=== PATIENT | male | born 1965 | race Caucasian/White ===

== ENCOUNTER → 2020-09-22 09:39 | Outpatient (BNVA) | payer BC, SELFPAY | PROVIDERS: Family Provider Family Medicine; PCP Family Medicine; Visit Provider Urology | DX: N52.1 Erectile dysfunction due to diseases classified elsewhere (principal); E11.9 Type 2 diabetes mellitus without complications; I10 Essential (primary) hypertension; Z12.5 Encounter for screening for malignant neoplasm of prostate | CPT/HCPCS: G0103 ==

== ENCOUNTER → 2021-09-22 08:49 | Outpatient (BNVA) | payer BC, SELFPAY | PROVIDERS: PCP Family Medicine; Visit Provider Urology | DX: N52.1 Erectile dysfunction due to diseases classified elsewhere (principal) | CPT/HCPCS: 81003 ==

== ENCOUNTER 2021-11-28 13:41 | Emergency (ER) | payer BC, OTHER, SELFPAY ==
[2021-11-28 13:48] VITALS: BP 150/92; PULSE 83; RESP 18; TEMP 37; O2SAT 99; BMI 32.5
--- NOTE | 2021-11-28 14:03 | CT_ITS ---
WS: [id number] CT HEAD NONCONTRAST HISTORY: Symptoms of Acute Stroke TECHNIQUE: Contiguous axial imaging performed through the brain in 2.5 mm imaging. Bone and soft tiss ue windows. Sagittal and coronal reformats reviewed. All CT scans at [facility] use at least one of these dose optimization techniques: automated exposure control; mA and/or kV adjustment per pa tient size (includes targeted exams where dose is matched to clinical indication); or iterative recon struction. DLP: 1203.3 mGy.cm COMPARISON: 10/15/2007, MRI 01/23/2019 No acute intracranial hemorrhage, midline shift or mass effect. Mild atrophy. Numerous periventricular areas of decreased attenuation are noted throughout the white matter. Some of these are closely associated with the corpus callosum. These are new since the prior CT of 2007. MRI from 2019 demonstrated periventricular white matter signal abnormalities raising the suspicion for possible demyelinating disease. There is a prior lacunar infarct in the RIGHT sindi and the RIGHT basal ganglia. Ventricles: No hydrocephalus. Paranasal sinuses: Small mucous retention cyst or polyp in the RIGHT maxillary sinus. Mastoid air cells: Well pneumatized. Calvarium and scalp: Skull is intact with no soft tissue edema or swelling. Scattered calcifications within the intracranial carotid arteries. CT/CT head wo con* [id number] IMPRESSION: 1. No acute hemorrhage, edema or midline shift. 2. Since 2007 progression of periventricular white matter lesions closely asso ciated with the ventricles. Demyelinating disease, vasculitis and progressive s mall vessel ischemic disease should be considered. There was a prior MRI from which suggested the possibility of demyelination also. 3. Small chronic lacunar infarcts in the RIGHT sindi and RIGHT basal ganglia.
--- NOTE | 2021-11-28 14:03 | ECG_ITS ---
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 Measurements Intervals [place] Rate: 90 P: 59 NC: 202 QRS: -43 QRSD: 130 T: 72 QT: 357 QTc: 438 Interpretive Statements SINUS RHYTHM LEFT AXIS DEVIATION [QRS AXIS < -30] MODERATE INTRAVENTRICULAR CONDUCTION DELAY [110+ ms QRS DURATION] Compared to ECG 01/22/2017 15:17:53 Intraventricular conduction delay now present Ventricular premature complex(es) no longer present Electronically Signed On 11-28-2021 16:09:52 COPS by Mayra Vela M.D. [id number]
--- NOTE | 2021-11-28 14:14 | ED_ITS ---
HPI - Weakness General: Chief complaint: Weakness Stated complaint: stroke like symptoms sent by PCP Time Seen by Provider: 11/28/21 14:00 Source: patient Mode of arrival: ambulatory Limitations: no limitations History of Present Illness: 56-year-old male presents emergency room with complaints difficulty with word finding. He was seen by his primary care doctor today reported that his was in his normal state of good health until this morning when he woke up he had difficulty with word finding and some very mild subtle dysarthria. Not had any vomiting or diarrhea is not had any chest pain he denies difficulty with breathing no difficulty with swallowing or vision. He has known history of diabetes mellitus and a previous right [id number]-iwg-[id number] amputation. His last known well time was approximately 16 to 17 hours prior to arrival here. Onset (ago): hour(s) (18) Duration: constant Location: other Severity: mild Relieving factors: none Exacerbating factors: none Associated symptoms: Denies chest pain, chills, confusion, melena, decreased appetite, diaphoresis, dysuria, easy bruising, fever(s), headache(s), myalgias, nausea, rash, short of breath, syncope or vomiting Review of Systems Const: Denies: fever(s), chills or diaphoresis Card: Denies: chest pain or syncope GI: Denies: nausea, vomiting or melena : Denies: dysuria Neuro: Denies: headache(s) or confusion Eloy/Lymph: Denies: easy bruising PFSH ED PFSH: Medical History Diabetes Erectile dysfunction HTN (hypertension) Surgical History Status post above-knee amputation of right lower extremity Family History Father , AT AGE 82 Heart disease Kidney disease Other CAD (coronary artery disease) Social History Smoking and tobacco status: never smoked Alcohol intake: current Alcohol intake frequency: few times a month Marital status: Legally Current occupational status: employed History of recent travel: No Physical Exam Const: COMMON NORMALS: no acute distress GENERAL APPEARANCE: cooperative and comfortable ORIENTATION/CONSCIOUSNESS: Yes awake, Yes oriented to person, Yes oriented to place and Yes oriented to time HENMT: COMMON NORMALS: normocephalic, atraumatic, hearing grossly normal bila terally, external ears normal, EAC's normal, TM's normal bilaterally, Normal nasal mucous membranes and turbinates present, moist oral mucous membranes and oropharynx normal HEAD & SCALP: normocephalic and atraumatic NOSE: Normal nasal mucous membranes and turbinates present EXTERNAL EAR: Yes external ears normal EXTERNAL AUDITORY CANAL: EAC's normal TYMPANIC MEMBRANE: TM's normal bilaterally Eye: COMMON NORMALS: Equal, round and reactive pupils present, EOMs intact bilaterally, conjunctivae normal and no scleral icterus CONJUNCTIVA: Yes conjunctivae normal PUPIL: Yes Equal, round and reactive pupils present Neck/C-Spine: COMMON NORMALS: full ROM, no lymphadenopathy, supple and no JVD Lymph: LYMPHATIC: no lymphadenopathy noted and no lymphedema noted Resp: COMMON NORMALS: normal respiratory effort, No retractions, No use of accessory muscles and clear to auscultation bilaterally AUSCULTATION: clear to auscultation bilaterally Cardio: COMMON NORMALS: no JVD, regular rate, regular rhythm and No murmurs present (Cardio) RATE: regular rate RHYTHM: regular rhythm GI: COMMON NORMALS: Soft to palpation and No hepatosplenomegaly present AUSCULTATION: Yes normoactive bowel sounds PALPATION: Yes Soft to palpation, No Tenderness to palpation present (GI), No Guarding due to palpation present (GI) and Yes No hepatosplenomegaly present Extremity: COMMON NORMALS: normal to inspection, capillary refill normal, no clubbing, cyanosis or edema, no calf tenderness and no pedal edema Neuro: SENSORIUM/ORIENTATION: Yes oriented to person, Yes oriented to place and Yes oriented to time Skin: COMMON NORMALS: no rashes or lesions noted GENERAL SKIN EXAM: no ra shes or lesions noted Course Vital Signs: Vital signs: Vital Signs Temperature 98.6 F 11/28/21 13:48 Pulse Rate 80 11/28/21 17:35 Respiratory Rate 18 11/28/21 17:35 Blood Pressure 150/80 11/28/21 17:35 Pulse Oximetry 95 11/28/21 17:35 MDM - Weakness Medical Decision Making Patient continues to have mild dysarthria and dysphagia. His total stroke score would be a 2 and this has been persistent throughout his time here. He is outside the time window for any kind of intervention the stroke score is too low to consider embolectomy. He is unable to take statin because of a previous reaction at talk to him about his previous symptoms he cannot recall which one he took previously. We can switch him from aspirin to clopidogrel which we did write him a prescription for. His blood pressure is relatively well controlled I would not make changes at this point may need better control at some point in the future. Recommended to him considering allowing us to place him on observation or we can get MRI echocardiogram carotid duplex and monitor his rhythm to look for potential causes to prevent recurrence. He declines he prefers to go home at this point. He still does have the mild symptoms he presented with and Dr. Myers had prescribed. We will discharge him home and set up echocardiogram carotid duplex MRI of the head with contrast and a 48-hour Holter monitor as an outpatient. Encouraged him to follow-up with his primary care doctor to reevaluate blood pressure and review lipid control. Medical Records I reviewed the patient's medical records. Lab Data I reviewed the patient's lab results. : 11/28/21 14:19 11/28/21 14:[address] 11/28/21 14:03 IMPRESSION: 1. No acute hemorrhage, edema or midline shift. 2. Since 2007 progression of periventricular white matter lesions closely associated with the ventricles. Demyelinating disease, vasculitis and progressive small vessel ischemic disease should be considered. There was a prior MRI from 2019 which suggested the possibility of demyelination also. 3. Small chronic lacunar infarcts in the RIGHT sindi and RIGHT basal ganglia. Laboratory Results WBC 6.6 10^3/uL (4.0-10.0) 11/28/21 14:19 RBC 4.64 10^6/uL (4.1-5.3) 11/28/21 14:19 Hgb 15.0 g/dL (11.7-16.6) 11/28/21 14:19 Hct 41.8 % (42.0-52.0) L 11/28/21 14:19 MCV 90.1 fl (80-94) 11/28/21 14:19 MCH 32.3 pg (28.0-34.0) 11/28/21 14:19 MCHC 35.9 g/dL (30.0-36.0) 11/28/21 14:19 RDW 11.7 % (12.1-15.1) L 11/28/21 14:19 Plt Count 307 10^3/cmm (130-400) 11/28/21 14:19 MPV 9.2 fL (7.4-10.4) 11/28/21 14:19 Neut % (Auto) 54.5 % 11/28/21 14:19 Lymph % (Auto) 31.9 % 11/28/21 14:19 Traill % (Auto) 9.1 % 11/28/21 14:19 Eos % (Auto) 3.0 % 11/28/21 14:19 Baso % (Auto) 0.9 % 11/28/21 14:19 Neut # (Auto) 3.60 10^3/uL (1.8-7.7) 11/28/21 14:19 Lymph # (Auto) 2.1 10^3/uL (0.8-4.8) 11/28/21 14:19 Traill # (Auto) 0.6 10^3/uL (0.2-0.9) 11/28/21 14:19 Eos # (Auto) 0.2 10^3/uL (0.0-0.8) 11/28/21 14:19 Baso # (Auto) 0.1 10^3/uL (0.0-0.1) 11/28/21 14:19 Nucleated RBC % (auto) 0 % 11/28/21 14:19 Nucleated RBCs # 0.0 /100WBC 11/28/21 14:19 PT 13.00 SECONDS (12.1-14.9) 11/28/21 14:19 INR 0.95 (0.8-1.2) 11/28/21 14:19 APTT 26.0 SECONDS (23.9-36.7) 11/28/21 14:19 Sodium 136 mmol/L (136-145) 11/28/21 14:42 Potassium 4.1 mmol/L (3.5-5.1) 11/28/21 14:42 Chloride 98 mmol/L (98-107) 11/28/21 14:42 Carbon Dioxide 26 mmol/L (22-29) 11/28/21 14:42 Anion Gap 16.1 (5-19) 11/28/21 14:42 BUN 18 mg/dL (6-20) 11/28/21 14:42 Creatinine 0.8 mg/dL (0.7-1.2) 11/28/21 14:42 GFR Calculation 100.7 mL/min (90-130) 11/28/21 14:42 Glucose 129 mg/dL (65-115) H 11/28/21 14:42 POC Glucose 142 mg/dL (70-110) H 11/28/21 14:17 Calculated Osmolality 286 mOsm/kg (285-295) 11/28/21 14:42 Calcium 8.8 mg/dL (8.5-10.5) 11/28/21 14:42 Total Bilirubin 0.4 mg/dL (0.15-1.2) 11/28/21 14:42 AST 18 U/L (0-40) 11/28/21 14:42 ALT 37 U/L (0-41) 11/28/21 14:42 Alkaline Phosphatase 54 IU/L (40-130) 11/28/21 14:42 Total Protein 7.1 g/dL (6.6-8.7) 11/28/21 14:42 Albumin 4.4 g/dL (3.5-5.2) 11/28/21 14:42 Globulin 2.7 g/dL (1.3-4.6) 11/28/21 14:42 Discharge Plan Discharge Patient Disposition: Home Clinical Impression: Acute CVA (cerebrovascular accident) Condition: Stable Prescriptions: New clopidogrel 75 mg tablet 75 mg PO DAILY Qty: 30 0RF Discontinued aspirin [Aspir-81] 81 mg Tablet,Delayed Release (Dr/Ec) 81 mg PO DAILY 0RF No Action amlodipine 10 mg tablet 10 mg PO DAILY 0RF lisinopril 5 mg tablet 5 mg PO DAILY 0RF escitalopram oxalate 10 mg tablet 10 mg PO DAILY 0RF tadalafil [Cialis] 20 mg tablet 20 mg PO DAILY PRN (Reason: sexual activity) Qty: 20 12RF Rx Instructions: Take approx. 30min before sexual activity; no more than 1 dose per 24hrs; NO NITROGLYCERIN metformin 500 mg Tablet 500 mg PO BID 0RF irbesartan-hydrochlorothiazide 150-12.5 mg tablet 2 tab PO DAILY 0RF glipizide 10 mg Tablet 10 mg PO DAILY 0RF hydrochlorothiazide 12.5 mg capsule 12.5 mg PO DAILY 0RF Ozempic 0.25 mg or 0.5 mg(2 mg/1.5 mL) pen injector 2 mg SUBCUT Q7D 0RF Discharge Orders: Discharge ED (Routine); Ordered 11/28/21 Ordered By: Hammad Corrales Referrals: Timur Myers MD [Primary Care Provider] - Discharge Diet: Usual diet Discharge Activity: Increase activity as tolerated Patient Instructions: Opioid Safety Activity Restrictions/Additional Instructions: Stop aspirin instead start clopidogrel. internet marketing manager will make arrangements for further testing including a carotid duplex, echocardiogram, 48-hour Holter monitor, and MRI of the head. You have any worsening or change of symptoms return immediately. Coding Level of Care Code ED Retail Merchandising Coordinator for Ayse Fernandez Exam Comprehensive NIH stroke score NIHSS Level Of Consciousness - 1a: 0 Level Of Consciousness Questions - 1b: Both Correct Level Of Consciousness Commands - 1c: Both Correct Best Gaze - 2: Normal Visual Clements - 3: No Visual Loss Facial Palsy - 4: Normal Motor Arm Right - 5: No Drift Motor Arm Left - 5: No Drift Motor Leg Right - 6: No Drift Motor Leg Left - 6: No Drift Limb Ataxia - 7: Absent Sensory - 8: Normal Best Language - 9: Mild/Moderate Aphasia Dysarthia - 10: Mild/Moderate Dysarthia Extinction And Inattention - 11: 0 Score Total Score: 2
[2021-11-28 14:25] LABS: Basophils # 0.1 10^3/uL (0.0-0.1); Basophils % 0.9 %; Eosinophils # 0.2 10^3/uL (0.0-0.8); Hematocrit 41.8 % (42.0-52.0); Lymphocytes # 2.1 10^3/uL (0.8-4.8); Lymphocytes % 31.9 %; Mean Corpuscular HGB Conc 35.9 g/dL (30.0-36.0); Mean Corpuscular Hemoglobin 32.3 pg (28.0-34.0); Mean Corpuscular Volume 90.1 fl (80-94); Mean Platelet Volume 9.2 fL (7.4-10.4); Monocytes # 0.6 10^3/uL (0.2-0.9); Monocytes % 9.1 %; Neutrophils % 54.5 %; Nucleated Red Blood Cells % 0 %; Platelet Count 307 10^3/cmm (130-400); Red Blood Count 4.64 10^6/uL (4.1-5.3); Red Cell Distribution Width 11.7 % (12.1-15.1); White Blood Count 6.6 10^3/uL (4.0-10.0)
[2021-11-28 14:33] LABS: Glucose Point of Care 142 mg/dL (70-110)
[2021-11-28 14:41] LABS: INR 0.95 (0.8-1.2)
[2021-11-28 15:08] LABS: Alanine Aminotransferase 37 U/L (0-41); Albumin Level 4.4 g/dL (3.5-5.2); Alkaline Phosphatase 54 IU/L (40-130); Aspartate Amino Transferase 18 U/L (0-40); Blood Urea Nitrogen 18 mg/dL (6-20); Calcium 8.8 mg/dL (8.5-10.5); Carbon Dioxide 26 mmol/L (22-29); Chloride 98 mmol/L (98-107); Globulin 2.7 g/dL (1.3-4.6); Glomerular Filtration Rate 100.7 mL/min (90-130); Glucose 129 mg/dL (65-115); Osmolality Calculated 286 mOsm/kg (285-295); Sodium 136 mmol/L (136-145); Total Bilirubin 0.4 mg/dL (0.15-1.2); Total Protein 7.1 g/dL (6.6-8.7)
[2021-11-28 15:09] LABS: Anion Gap 16.1 (5-19)
[2021-11-28 15:10] LABS: Potassium 4.1 mmol/L (3.5-5.1)
--- NOTE | 2021-11-28 16:15 | PC.NURSE ---
Pt ambulatory to restroom to provide UA sample, pt unsucessful with sample. Will try again.
[2021-11-28 17:35] VITALS: BP 150/80; PULSE 80; RESP 18; O2SAT 95
--- NOTE | 2021-12-08 06:42 | DCPLANNER ---
Addendum entered by Noelle Quintero 01/26/22 20:56: Patient had an echo scheduled - patient did not attend the appointment Patient had an carotid ultrasound - patient did attend the appointment Patient had a 48 hour halter monitor scheduled at [facility] - patient did attend appointment. Patient has an MRI scheduled for January 26, 2022 - patient did attend appointment. Addendum entered by Noelle Quintero 12/19/21 08:26: Patient has an out patient echo scheduled for Tuesday, January 04, 2022 at 9:30. Patient has an outpatient carotid duplex scheduled for Tuesday, January 04, 2022 at 12:45. Centralized scheduling will call patient with appointment information. Patient has an appointment scheduled for a 48 hour halter monitor at [facility] for Monday, December 20, 2021 at 12:45. [facility] will call patient with appointment information. Original Note: manager packaging had message to schedule some out patient tests for patient. manager packaging faxed signed orders for an MRI, echocardiogram, and carotid to centralized scheduling, who will call patient with appointment information. manager packaging also faxed a signed order for a 48 hour halter monitor to [facility], who will call patient with appointment information.
== END 2021-11-28 17:36 | disposition home or self-care (01) ==
PROVIDERS: Emergency Provider Family Medicine; PCP Family Medicine
DX: I63.9 Cerebral infarction, unspecified (principal); Z79.84 Long term (current) use of oral hypoglycemic drugs; E11.9 Type 2 diabetes mellitus without complications; I10 Essential (primary) hypertension; Z89.611 Acquired absence of right leg above knee
CPT/HCPCS: 36416; 70450; 80053; 82962; 85025; 85610; 85730; 93005; 99283

== ENCOUNTER 2022-01-04 08:48 | Outpatient (CLI) | payer OTHER, BC, SELFPAY ==
--- NOTE | 2022-01-04 09:05 | USCV_ITS ---
Lashandarc Harman Age: 56 Gender: M : 1965 Exam Date: 01/04/2022 09:30 Ordering Phys: Hammad Corrales DO Technologist: Ex[place] [facility] [place]: EVAL FOR STENOSIS Risk Factors: Previous Vascular Surgery: Right Brachial BP: / Left Brachial BP: / Right Left Velocity (cm/s) Spectral Plaque Velocity (cm/s) Spectral Plaque Syst/Diast Broadening Syst/Diast Broadening 87.10/ 15.40 Prox CCA 77.70 / 14.80 75.00/ 23.20 Mid CCA 80.80 / 18.60 69.50/ 16.50 Distal CCA 76.10 / 17.90 62.90/ 17.10 Prox ICA 51.90 / 16.50 75.40/ 25.60 Mid ICA 65.90 / 18.90 74.20/ 21.35 Distal ICA 79.10 / 24.70 94.80 ECA 98.00 0.87 ICA/CCA 0.98 Antegrade Vertebral Antegrade / cm/s 33.80/ 7.40 cm/s Tri Subclavian 73.80 85.70 FINDINGS Comparison: none available. No significant elevation of systolic or diastolic velocities. Waveforms are normal. No significant amount of calcified plaque or intimal thickening identified. Antegrade vertebral arteries. CONCLUSIONS Normal carotid doppler ultrasound. Dr. Carol Duggan DO (Electronically Signed) Final Date: 04 January 2022 13:30 S
--- NOTE | 2022-01-04 09:10 | USCV_ITS ---
Harman Swanson Age: 56 Gender: M : 1965 Exam Date: 01/04/2022 09:14 Ordering Phys: Hammad Corrales DO Technologist: Exam Location: [facility] – [place], [place] Indication: BP: 121 / 74 HR: 81 Rhythm: Sinus Technical Quality: Adequate MEASUREMENTS (Male / Female) Normal Values 2D ECHO LV Diastolic Diameter PLAX 4.5 cm 4.2 - 5.9 / 3.9 - 5.3 cm LV Systolic Diameter PLAX 2.7 cm IVS Diastolic Thickness 1.2 cm 0.6 - 1.0 / 0.6 - 0.9 cm IVS Systolic Thickness 1.6 cm LVPW Diastolic Thickness 1.1 cm 0.6 - 1.0 / 0.6 - 0.9 cm LVPW Systolic Thickness 1.5 cm LVOT Diameter 2.2 cm LV Ejection Fraction 2D Teich 69.8 % LV Ejection Fraction MOD 2C 63.0 % LV Ejection Fraction 2C AL 63.2 % LA Diameter 4.0 cm Aorta at Sinotubular Diameter 2.5 cm M-MODE Aortic Annulus Diameter 3.9 cm LA Ao Ratio MM 1.1 MV E Point Septal Separation 0.6 cm DOPPLER AV Peak Velocity 94.0 cm/s LVOT Peak Velocity 72.0 cm/s AV Area Cont Eq vti 2.8 cm squared AV Area Cont Eq pk 2.9 cm squared MV Area PHT 5.1 cm squared Mitral E to A Ratio 1.3 MV E' Velocity 45.5 cm/s Mitral E to MV E' Ratio 7.4 Mitral E to LV E' Lateral Ratio 6.8 Mitral E to LV E' Septal Ratio 8.0 TR Peak Velocity 162.3 cm/s TR Peak Gradient 10.5 mmHg TV Peak E Velocity 104.0 cm/s Right Atrial Pressure 3.0 mmHg Pulmonary Artery Systolic Pressu 13.5 mmHg FINDINGS Left Ventricle Normal left ventricular size. LV systolic function is normal with EF of 55-60%. No regional wall motion abnormalities. Normal diastolic function Right Ventricle The right ventricle is normal in size and function. Right Atrium The right atrium is normal in size. Left Atrium The left atrium is normal in size. Mitral Valve Structurally normal mitral valve without significant stenosis or prolapse. There is no mitral regurgitation. Aortic Valve Grossly normal without significant stenosis. There is no aortic regurgitation. Tricuspid Valve Structurally normal tricuspid valve without significant stenosis or regurgitation. Insufficient TR jet to calculate RVSP Pulmonic Valve Not well visualized Pericardium Normal pericardium without effusion. Aorta Normal ascending aorta dimension. CONCLUSIONS Technically limited echocardiogram because of poor visualization LV systolic function is normal with EF of 55-60% Normal diastolic function No significant valvular heart disease No comparison studies are available Isaiah Barr MD (Electronically Signed) Final Date: 04 January 2022 17:55 S
== END 2022-01-04 08:49 | disposition home or self-care (01) ==
LOC: RAD 08:56
PROVIDERS: PCP Family Medicine; Visit Provider Family Medicine
DX: I63.9 Cerebral infarction, unspecified (principal)
CPT/HCPCS: 93306; 93880

== ENCOUNTER 2022-09-19 11:40 | Outpatient (CLI) | payer OTHER, SELFPAY ==
[2022-09-19 12:41] LABS: Prostate Specific AG Urology 0.81 ng/mL (0-4)
== END 2022-09-19 11:41 | disposition home or self-care (01) ==
PROVIDERS: PCP Family Medicine; Visit Provider Urology
DX: N52.9 Male erectile dysfunction, unspecified (principal)
CPT/HCPCS: 36415; 84153

== ENCOUNTER → 2022-09-21 11:02 | Outpatient (BNVA) | payer OTHER, SELFPAY | PROVIDERS: PCP Family Medicine; Visit Provider Urology | DX: N52.9 Male erectile dysfunction, unspecified (principal) | CPT/HCPCS: 81003 ==

== ENCOUNTER → 2022-11-22 14:06 | Outpatient (BNVA) | payer OTHER, SELFPAY | PROVIDERS: PCP Family Medicine; Visit Provider Podiatrist Foot & Ankle Surgery | DX: Z01.89 Encounter for other specified special examinations (principal); L97.522 Non-pressure chronic ulcer of other part of left foot with fat layer exposed; E11.42 Type 2 diabetes mellitus with diabetic polyneuropathy; E11.621 Type 2 diabetes mellitus with foot ulcer; L97.509 Non-pressure chronic ulcer of other part of unspecified foot with unspecified severity; L03.032 Cellulitis of left toe | CPT/HCPCS: 87070; 87075; 87205 ==

== ENCOUNTER → 2022-11-22 14:15 | Outpatient (BNVA) | payer OTHER, SELFPAY | PROVIDERS: PCP Family Medicine; Visit Provider Podiatrist Foot & Ankle Surgery | DX: E11.621 Type 2 diabetes mellitus with foot ulcer (principal); L03.032 Cellulitis of left toe; Z79.84 Long term (current) use of oral hypoglycemic drugs; L97.522 Non-pressure chronic ulcer of other part of left foot with fat layer exposed; E11.42 Type 2 diabetes mellitus with diabetic polyneuropathy | CPT/HCPCS: 73630; 87070; 87075; 87077; 87186; 87205 ==

== ENCOUNTER 2023-04-09 12:01 | Outpatient (CLI) | payer OTHER, SELFPAY ==
--- NOTE | 2023-04-09 12:20 | XRR_ITS ---
PROCEDURE INFORMATION: Exam: XR Left Foot Exam date and time: 04/09/2023 12:29 PM Age: 57 years old Clinical indication: Other: Diabetic foot ulcer/infection of toe TECHNIQUE: Imaging protocol: Radiologic exam of the left foot. Views: 3 or more views. COMPARISON: CR XR foot LT min 3V* [id number] 11/22/2022 2:22 PM FINDINGS: Bones/joints: There is osteolysis of the distal phalanx of the great toe particularly involving the tuft and the lateral base. There is associated soft tissue swelling. The remainder of the foot is unremarkable. Soft tissues: See Bones/joints finding. XR/XR foot LT min 3V* [id number] IMPRESSION: Osteomyelitis of the distal phalanx of the great toe.
== END 2023-04-09 12:02 | disposition home or self-care (01) ==
PROVIDERS: PCP Family Medicine; Visit Provider Family Medicine
DX: E11.69 Type 2 diabetes mellitus with other specified complication (principal); M86.9 Osteomyelitis, unspecified; E11.621 Type 2 diabetes mellitus with foot ulcer; L97.529 Non-pressure chronic ulcer of other part of left foot with unspecified severity; L08.9 Local infection of the skin and subcutaneous tissue, unspecified
CPT/HCPCS: 73630

== ENCOUNTER 2023-04-18 09:01 | Day surgery (SDC) | payer OTHER, SELFPAY ==
[2023-04-17 10:08] VITALS: BMI 33.9
[2023-04-18 09:03] VITALS: BP 145/80; PULSE 93; RESP 17; TEMP 36.6; O2SAT 98
[2023-04-18] MEDS: acetaminophen 1,000 MG/100 ML PIGGYBACK 400 MG IV (09:24)
[2023-04-18] MEDS: sodium chloride 0.9% 1,000 ML 30 ML IV (09:25)
[2023-04-18] MEDS: gabapentin 300 mg Capsule PO (09:25)
[2023-04-18 09:37] LABS: Glucose Point of Care 111 mg/dL (70-110)
--- NOTE | 2023-04-18 09:37 | W.PM.OPSUD ---
Surgery/Procedure H&P Update DATE OF PROCEDURE: April 18, 2023 DATE H&P PERFORMED: 04/12/23 CHANGES TO PREVIOUS DOCUMENTATION: Patient has new abscess formation to medial left 1st metatarsal head. Discussed with patient that goal is infection control and patient may need complete amputation of hallux. Patient verbalized understanding. PREOP DIAGNOSIS: Osteomyelitis Left Hallux PLANNED PROCEDURE: Operation Date: 04/18/23 10:35 Proposed Procedures p Left partial hallux amputation CPT 67954 possible Complete amputation left hallux CPT 12998,M86.9(Left) - Dilip Vides DPM
--- NOTE | 2023-04-18 09:50 | ANES.PREANE2 ---
Pre-Anesthetic Assessment Height/Weight: Height 1.83 m Weight 113.398 kg Temp Pulse Resp BP Pulse Ox O2 Del Method 97.8 F 93 17 145/80 98 Room Air 04/18/23 09:03 04/18/23 09:03 04/18/23 09:03 04/18/23 09:03 04/18/23 09:03 04/18/23 09:03 Preop Diagnosis: Osteomyelitis Left Hallux Operation Date: 04/18/23 10:35 Proposed Procedures p Left partial hallux amputation CPT 02669 possible Complete amputation left hallux CPT 01031,M86.9(Left) - Dilip Vides DPM Familial anesthetic complications: none Was Beta Johnna taken within 24 hours: N/A Was Clonidine taken within 24 hours: N/A Last intake: Intake Last Liquid Date 04/18/23 Last Liquid Time 08:00 Last Solid Date 04/17/23 Last Solid Time 18:00 Social No alcohol and No tobacco Exam alert, oriented x 3, clear to auscultation bilaterally and regular rate & rhythm Airway Mallampati: Class III Dentition: full CV/HEM Hypertension pvcs Metabolic Diabetes Mellitus Anesthetic Plan ASA status: 3 Anesthesia: MAC Risk of > 500 ml blood loss (7ml/kg in children): No Medications/Allergies Home Medications Medication Instructions Recorded Confirmed Last Taken Type amlodipine 10 mg tablet 10 mg PO DAILY 09/22/20 04/17/23 04/17/23 History lisinopril 5 mg tablet 5 mg PO DAILY 09/22/20 04/17/23 04/17/23 History escitalopram oxalate 10 mg tablet 10 mg PO DAILY 09/22/21 04/17/23 04/17/23 History glipizide 10 mg tablet 10 mg PO DAILY 11/28/21 04/17/23 04/17/23 History hydrochlorothiazide 12.5 mg capsule 12.5 mg PO DAILY 11/28/21 04/17/23 04/17/23 History irbesartan 150 2 tab PO DAILY 11/28/21 04/18/23 04/18/23 History mg-hydrochlorothiazide 12.5 mg 0800 tablet metformin 500 mg tablet 500 mg PO BID 11/28/21 04/17/23 04/17/23 History semaglutide 0.25 mg or 0.5 mg (2 2 mg SUBCUT Q7D 03/04/1404/17/23 04/09/23 History mg/1.5 mL) subcutaneous pen injector (Ozempic) tadalafil 20 mg tablet (Cialis) 20 mg PO DAILY PRN sexual activity 09/21/22 04/17/23 Unknown Rx #20 tabs doxycycline hyclate 100 mg capsule 100 mg PO BID #14 caps 12/06/22 04/17/23 04/17/23 Rx Allergies Allergy/AdvReac Type Severity Reaction Status Date / Time Csuhili-YIT-ZsJ Reductase Allergy ADR-Vomitin Verified 04/17/23 10:06 Inhibitor g Current Medications Generic Name Dose Route Start Last Admin Trade Name Freq PRN Reason Stop Dose Admin Sodium Chloride 1,000 mls @ 30 mls/hr 04/18/23 09:15 04/18/23 09:25 Sodium Chloride 0.9% IV 04/19/23 09:14 30 mls/hr .Q24H DIONNA Administration PFSH Anesthesia Medical History Diabetes Erectile dysfunction HTN (hypertension) Surgical History Status post above-knee amputation of right lower extremity Family History Father , AT AGE 82 Heart disease Kidney disease Other CAD (coronary artery disease) Social History Smoking and tobacco status: never smoked Alcohol intake: current Alcohol intake frequency: few times a month Substance/Drug Use: never Marital status: Legally Current occupational status: retired Data Anesthesia Cardiac Studies: Echocardiogram 01/04/22 Holter Monitor 12/20/21
[2023-04-18] MEDS: ceFAZolin 2,000 MG in sodium chloride 0.9% (plus) 50 ML 100 MG IV (10:02)
[2023-04-18 10:53] VITALS: BP 126/72; PULSE 88; RESP 14; TEMP 36.4; O2SAT 94
[2023-04-18 10:58] VITALS: BP 123/77; PULSE 87; RESP 16; O2SAT 97
[2023-04-18 11:03] VITALS: BP 115/71; PULSE 89; RESP 17; O2SAT 96
[2023-04-18 11:08] VITALS: BP 111/71; PULSE 89; RESP 17; TEMP 36.8; O2SAT 95
[2023-04-18 11:15] VITALS: BP 114/61; PULSE 84; RESP 16; TEMP 36.3; O2SAT 94
--- NOTE | 2023-04-18 12:04 | ANE.PACU2 ---
Inpatient post-anesthesia follow up: Airway intact: Yes Vital signs: Temperature 97.3 F Pulse Rate 84 Respiratory Rate 16 Blood Pressure 114/61 Pulse Oximetry 94 Oxygen Delivery Me thod Room Air Oxygen Flow Rate 6 Fraction of Inspir ed Oxygen Hydration adequate: Yes Nausea and vomiting: No Pain level: 1 Mental status: Baseline
--- NOTE | 2023-04-18 16:00 | PM.OP ---
Operative Report Date of procedure: April 18, 2023 Pre-op diagnosis: Preop Diagnosis Osteomyelitis Left Hallux Post-op diagnosis: Same Post-op findings: Infected, erythematous distal left hallux with underlying osteomyelitis Procedure done: Left hallux partial amputation CPT 35126 Implants: None Specimens removed/disposition: Partial left hallux sent to pathology as surgical specimen. Aerobic and anaerobic cultures of amputation site sent to micro for ID and sensitivity Pathology: See above Surgeon: Dr. Dilip Vides, D.P.M. Estimated blood loss: Less than 10 cc Complications: None Findings: See above Procedure: Patient is a 57-year-old male that has a history of left hallux chronic ulcerations with new changes of osteomyelitis to distal phalanx of left hallux. The patient has had the aforementioned chief complaint for some time. Conservative treatment measures have been attempted and the patient has opted for surgical intervention at this time. A lengthy discussion regarding the procedure, including risks and complications has been had with the patient and is noted in the recent clinic note. Written and verbal consent have been obtained. All patient questions have been answered to the patient?s satisfaction. No written or verbal guarantees have been given or implied. The patient has been NPO since midnight. The history has been reviewed and the history and physical is current. The signed consent was confirmed and placed in the patient chart. Patient imaging has been reviewed and is consistent with the diagnosis. Under mild sedation, the patient was brought into the operating room and placed on the table in the supine position. IV antibiotics were given by the anesthesia team as preoperative surgical prophylaxis. IV sedation was then performed by the anesthesiateam. A local field block using 0.5% Marcaine plain was then performed. A pneumatic tourniquet was then placed about the left ankle. The operative extremity was then prepped and draped in the usual fashion. The extremity was then elevated and exsanguinated before the tourniquet was inflated to 250 mmHg. After inflation, the following procedure was then performed. Attention was directed to the left foot where a racquet type incision was made around the left hallux at the level of the mid proximal phalanx. Full-thickness incision was made using #15 blade down to bone. This was carried out circumferentially around the aforementioned marked out incision line. Incision was carried down to the level of the proximal phalanx. Dissection was carried out proximally to expose the midshaft of the proximal phalanx. After exposure of the proximal phalanx sagittal bone saw was used to make an osseous cut through the mid proximal phalanx shaft. The distal hallux was then removed from the operative field to be sent as specimen. The base of the proximal phalanx bone appeared healthy and viable in nature with no signs of degeneration or osteomyelitis. Surrounding tissues appeared healthy at this level as well. Cultures both aerobic and anaerobic were taken at this point and sent to micro for ID and sensitivity. The site was then irrigated with copious amounts of sterile saline before attention was directed to closure. Skin was closed over the base of the proximal phalanx using 3-0 Prolene in simple interrupted fashion. The tourniquet was let down and good hyperemic spots was noted to all remaining digits of the left foot. The incision site was dressed with Xeroform, 4 x 4 gauze, Kerlix and Festus bandage. The patient tolerated the procedure and anesthesia well and without complication. The patient was transported from the operating room to the recovery room with vital signs stable and vascular status intact to all digits of the left foot. The patient was given both written and verbal instructions to remain weightbearing as tolerated in postop shoe to the operative extremity, to keep dressings/splint clean, dry and intact and to take pain medication as directed. The patient will follow-up in the outpatient setting at their scheduled appointment. The patient was discharged with my personal number and was instructed to call if any questions or issues should arise. They were discharged home once anesthesia criteria was met.
== END 2023-04-18 12:05 | disposition home or self-care (01) ==
PROVIDERS: PCP Family Medicine; Visit Provider Podiatrist Foot & Ankle Surgery
PROC: (CPT 28124; principal; 2023-04-18 10:25)
DX: M86.8X7 Other osteomyelitis, ankle and foot (principal); E11.621 Type 2 diabetes mellitus with foot ulcer; L97.524 Non-pressure chronic ulcer of other part of left foot with necrosis of bone; E11.42 Type 2 diabetes mellitus with diabetic polyneuropathy; Z79.84 Long term (current) use of oral hypoglycemic drugs; Z79.85 Long-term (current) use of injectable non-insulin antidiabetic drugs
CPT/HCPCS: 28124; 36416; 82962; 87070; 87075; 87205; 88305; 88311; J0131; J0690; J2704; J3010; J3490; J7030

== ENCOUNTER → 2023-09-28 14:16 | Outpatient (BNVA) | payer OTHER, SELFPAY | PROVIDERS: PCP Family Medicine; Visit Provider Thoracic Surgery (Cardiothoracic Vascular Surgery) | DX: E11.621 Type 2 diabetes mellitus with foot ulcer (principal); E11.52 Type 2 diabetes mellitus with diabetic peripheral angiopathy with gangrene; L97.524 Non-pressure chronic ulcer of other part of left foot with necrosis of bone; L97.521 Non-pressure chronic ulcer of other part of left foot limited to breakdown of skin | CPT/HCPCS: 87070; 87077; 87176; 87186; 87205 ==

== ENCOUNTER 2023-10-01 12:58 | Outpatient (CLI) | payer OTHER, SELFPAY ==
--- NOTE | 2023-10-01 13:02 | XRR_ITS ---
PROCEDURE INFORMATION: Exam: XR Left Foot Exam date and time: 10/01/2023 1:14 PM Age: 58 years old Clinical indication: Condition or disease; Other: Type 2 diabetes mellitus with foot ulcer; Prior surgery; Surgery date: 6+ months; Surgery type: Not specified; Additional info: E11.621 - type 2 diabetes mellitus with foot ulcer TECHNIQUE: Imaging protocol: Radiologic exam of the left foot. Views: 3 or more views. COMPARISON: CR XR foot LT min 3V* [id number] 04/09/2023 12:29 PM FINDINGS: Bones/joints: Trans phalangeal amputation of the 1st proximal phalanx. No cortical erosion or periostitis to suggest osteomyelitis. No acute fracture Soft tissues: Soft tissue ulcer at the base of the 1st digit amputation site. XR/XR foot LT min 3V* [id number] IMPRESSION: 1. Soft tissue ulcer at the base of the 1st proximal phalangeal amputation site. 2. No cortical erosion or periostitis to suggest osteomyelitis.
== END 2023-10-01 12:59 | disposition home or self-care (01) ==
LOC: RAD 12:58
PROVIDERS: PCP Family Medicine; Visit Provider Thoracic Surgery (Cardiothoracic Vascular Surgery)
DX: E11.621 Type 2 diabetes mellitus with foot ulcer (principal); L97.529 Non-pressure chronic ulcer of other part of left foot with unspecified severity
CPT/HCPCS: 73630

== ENCOUNTER 2023-10-17 06:00 | Day surgery (SDC) | payer OTHER, SELFPAY ==
[2023-10-17] VITALS (7 sets, daily range): BP systolic 114–177; BP diastolic 77–100; PULSE 86–97; RESP 12–18; TEMP 36.2–36.5; O2SAT 94–99; BMI 33.9
[2023-10-17] MEDS: sodium chloride 0.9% 1,000 ML 30 ML IV (06:26)
[2023-10-17] MEDS: acetaminophen 1,000 MG/100 ML PIGGYBACK 400 MG IV (06:26)
[2023-10-17] MEDS: gabapentin 300 mg Capsule PO (06:26)
--- NOTE | 2023-10-17 06:43 | W.PM.OPSUD ---
Surgery/Procedure H&P Update DATE OF PROCEDURE: October 17, 2023 DATE H&P PERFORMED: 10/09/23 H&P UPDATE INFORMATION: I have reviewed H&P completed within last 30 days, I have examined patient prior to procedure, No changes to prior documentation and [place] in [facility] date indicated PREOP DIAGNOSIS: Osteomyelitis PLANNED PROCEDURE: Operation Date: 10/17/23 07:20 Proposed Procedures p Left Amputation Toe/s Hallux Amputation/Left second digit partial amputation(Left) - Dilip Vides DPM
[2023-10-17 06:44] LABS: Glucose Point of Care 112 mg/dL (70-110)
[2023-10-17] MEDS: ceFAZolin 2,000 MG in sodium chloride 0.9% (plus) 50 ML 100 MG IV (06:55)
[2023-10-17] MEDS: BUPivacaine 0.5% INJ 30 mL 10 ML INJECTION (07:04)
[2023-10-17] MEDS: lidocaine 1% INJ 10 mL (per mL) XX (07:04)
--- NOTE | 2023-10-17 07:04 | ANES.PREANE2 ---
Pre-Anesthetic Assessment Height/Weight: Height 1.83 m Weight 113.398 kg Temp Pulse Resp BP Pulse Ox O2 Del Method 97.2 F L 95 18 177/100 99 Room Air 10/17/23 06:12 10/17/23 06:12 10/17/23 06:12 10/17/23 06:12 10/17/23 06:12 10/17/23 06:13 Preop Diagnosis: Osteomyelitis Operation Date: 10/17/23 07:20 Proposed Procedures p Left Amputation Toe/s Hallux Amputation/Left second digit partial amputation(Left) - Dilip Vides DPM Familial anesthetic complications: none Was Beta Johnna taken within 24 hours: N/A Was Clonidine taken within 24 hours: N/A Last intake: Intake Last Liquid Date 10/16/23 Last Liquid Time 19:30 Last Solid Date 10/16/23 Last Solid Time 18:30 Social No alcohol and No tobacco Exam alert, oriented x 3, clear to auscultation bilaterally and regular rate & rhythm Airway Submandibular: within normal limits Cervical ROM: within normal limits Mallampati: Class II Dentition: full CV/HEM Hypertension Metabolic Diabetes Mellitus and Morbid Obesity Neuropsych Neuropathy Anesthetic Plan ASA status: 3 Anesthesia: Choice Medications/Allergies Home Medications Medication Instructions Recorded Confirmed Last Taken Type amlodipine 10 mg tablet 10 mg PO DAILY 09/22/20 10/16/23 10/16/23 History escitalopram oxalate 10 mg tablet 10 mg PO DAILY 09/22/21 10/16/23 10/16/23 History glipizide 10 mg tablet 10 mg PO DAILY 11/28/21 10/16/23 10/16/23 History metformin 500 mg tablet 500 mg PO BID 11/28/21 10/16/23 10/16/23 History semaglutide 0.25 mg or 0.5 mg (2 2 mg SUBCUT Q7D 11/28/21 10/16/23 10/10/23 History mg/1.5 mL) subcutaneous pen injector (Ozempic) tadalafil 20 mg tablet (Cialis) 20 mg PO DAILY PRN sexual activity 09/21/22 10/17/23 Unknown Rx #20 tabs ciprofloxacin HCl 500 mg tablet 500 mg PO BID #20 tabs 05/14/23 10/16/23 10/16/23 Rx dicloxacillin 500 mg capsule 500 mg PO Q6H #60 caps 10/01/23 10/16/23 10/17/23 Rx hydrocodone 5 mg-acetaminophen 325 1 tab PO Q6H PRN pain #16 tabs 10/17/23 Unknown Rx mg tablet Allergies Allergy/AdvReac Type Severity Reaction Status Date / Time Qfmpppz-OJA-RaL Reductase Allergy ADR-Vomitin Verified 10/17/23 06:17 Inhibitor g Current Medications Generic Name Dose Route Start Last Admin Trade Name Freq PRN Reason Stop Dose Admin Sodium Chloride 1,000 mls @ 30 mls/hr 10/17/23 06:15 10/17/23 06:26 Sodium Chloride 0.9% IV 10/18/23 06:14 30 mls/hr .Q24H DIONNA Administration PFSH Anesthesia Medical History HTN (hypertension) Diabetes Erectile dysfunction Surgical History Status post above-knee amputation of right lower extremity Family History Father , AT AGE 82 Heart disease Kidney disease Other CAD (coronary artery disease) Social History Smoking and tobacco/nicotine status: never used tobacco/nicotine Alcohol intake: current Alcohol intake frequency: few times a month Substance/Drug Use: never Marital status: Legally Current occupational status: retired Data Anesthesia Cardiac Studies: Echocardiogram 01/04/22 Holter Monitor 12/20/21
--- NOTE | 2023-10-17 07:40 | W.PM.BPON ---
Date of procedure: 10/17/2023 Surgeon name: Chhaya JacquesPAdarsh Linux Server Administrator(s) name(s): Trav left polyp Procedure(s) performed: Amputation and partial second digit amputation Description of findings: Discoloration of proximal phalanx left hallux consistent with osteomyelitis. Positive probe to bone of the distal phalanx of left second digit consistent with osteomyelitis Estimated blood loss: 5 cc Tourniquet time: 11 minutes Specimen(s) removed: Left hallux proximal phalanx and 2nd digit sent as surgical specimen Post-operative diagnosis: Osteomyelitis
--- NOTE | 2023-10-17 07:44 | P.OP_ITS ---
Operative Report Date of procedure: October 17, 2023 Pre-op diagnosis: Osteomyelitis Post-op diagnosis: Same Post-op findings: Osteomyelitis of proximal phalanx left hallux as well as distal phalanx of second digit Procedure done: 1. Left hallux amputation CPT 72983 2. Left second digit partial amputation CPT 75930 Surgeon: Dilip Vides DPM Estimated blood loss: 5 cc 11 minutes Complications: None Procedure: Patient is a 58-year-old male that has a history of left hallux and left second digit osteomyelitis with chronic wound. The patient has had the aforementioned chief complaint for some time. Conservative treatment measures have been attempted and the patient has opted for surgical intervention at this time. A lengthy discussion regarding the procedure, including risks and complications has been had with the patient and is noted in the recent clinic note. Written and verbal consent have been obtained. All patient questions have been answered to the patient?s satisfaction. No written or verbal guarantees have been given or implied. The patient has been NPO since midnight. The history has been reviewed and the history and physical is current. The signed consent was confirmed and placed in the patient chart. Patient imaging has been reviewed and is consistent with the diagnosis. Under mild sedation, the patient was brought into the operating room and placed on the table in the supine position. IV antibiotics were given by the anesthesia team as preoperative surgical prophylaxis. IV sedation was then performed by the anesthesiateam. A local field block was then performed using 0.5% Marcaine plain. A pneumatic tourniquet was then placed about the left ankle. The operative extremity was then prepped and draped in the usual fashion. The extremity was then elevated and exsanguinated before the tourniquet was inflated to 250 mmHg. After inflation, the following procedure was then perfo rmed. Attention was directed to the left hallux partial amputation stump. A racquet style incision was made overlying this area. Dissection was carried down to the level of the first metatarsophalangeal joint using #15 blade. The base the proximal phalanx was then excised from the foot at the level of the metatarsophalangeal joint passed from the operative field. Attention was then directed to the second digit where a fishmouth incision was made using a #15 blade at the level of the proximal interphalangeal joint. Dissection was carried down through subcutaneous and superficial fascia to the level of the proximal interphalangeal joint. It was disarticulated at the level of the proximal inner phalangeal joint and the distal aspect of the toe was passed from the operative field. Both incision sites were inspected and the remaining tissue appeared healthy and viable. Incision sites were irrigated with copious months of sterile saline before attention was directed to closure. Skin closure was performed using 3-0 Prolene in simple interrupted fashion. The tourniquet was let down and good hyperemic response was noted to remaining digits of the left foot. Incision sites were dressed with Xeroform, 4 x 4 gauze, Kerlix, Festus. The patient tolerated the procedure and anesthesia well and without complication. The patient was transported from the operating room to the recovery room with vital signs stable and vascular status intact to all digits of the left foot. The patient was given both written and verbal instructions to remain weightbearing as tolerated in postop shoe to the operative extremity, to keep dressings/splint clean, dry and intact and to take pain medication as directed. The patient will follow-up in the outpatient setting at their scheduled appointment. The patient was discharged with my personal number and was instructed to call if any questions or issues should arise. They were discharged home once anesthesia criteria was met.
--- NOTE | 2023-10-17 14:16 | ANE.PACU2 ---
Inpatient post-anesthesia follow up: Airway intact: Yes Vital signs: Temperature 97.4 F Pulse Rate 86 Respiratory Rate 18 Blood Pressure 136/88 Pulse Oximetry 97 Oxygen Delivery Me thod Room Air Oxygen Flow Rate Fraction of Inspir ed Oxygen Hydration adequate: Yes Nausea and vomiting: No Pain level: 1 Mental status: Baseline
== END 2023-10-17 08:42 | disposition home or self-care (01) ==
PROVIDERS: PCP Family Medicine; Visit Provider Podiatrist Foot & Ankle Surgery
PROC: (CPT 28820; principal; 2023-10-17 07:00)
DX: M86.8X7 Other osteomyelitis, ankle and foot (principal); I10 Essential (primary) hypertension; E66.01 Morbid (severe) obesity due to excess calories; Z68.33 Body mass index [BMI] 33.0-33.9, adult; Z79.84 Long term (current) use of oral hypoglycemic drugs; E11.42 Type 2 diabetes mellitus with diabetic polyneuropathy
CPT/HCPCS: 28820; 28825; 36416; 82962; 88305; 88311; J0131; J0690; J2704; J3010; J3490; J7030

== ENCOUNTER → 2024-07-17 10:49 | Outpatient (BNVA) | payer MEDICARE, SELFPAY | PROVIDERS: PCP Family Medicine; Visit Provider Podiatrist Foot & Ankle Surgery | DX: E11.621 Type 2 diabetes mellitus with foot ulcer (principal); L97.522 Non-pressure chronic ulcer of other part of left foot with fat layer exposed; B35.1 Tinea unguium | CPT/HCPCS: 99213 ==

== ENCOUNTER → 2024-07-23 15:54 | Outpatient (BNVA) | payer MEDICARE, SELFPAY | PROVIDERS: PCP Family Medicine; Visit Provider Podiatrist Foot & Ankle Surgery | DX: M79.672 Pain in left foot (principal); L97.522 Non-pressure chronic ulcer of other part of left foot with fat layer exposed; M86.9 Osteomyelitis, unspecified; B35.1 Tinea unguium | CPT/HCPCS: 73630; 99214 ==

== ENCOUNTER 2024-07-28 07:51 | Day surgery (SDC) | payer MEDICARE, SELFPAY ==
[2024-07-28] VITALS (8 sets, daily range): BP systolic 134–149; BP diastolic 82–96; PULSE 73–93; RESP 14–18; TEMP 36.3–36.6; O2SAT 98–100; BMI 33.9
--- NOTE | 2024-07-28 | XR_ITS ---
WS: [id number] XR foot LT min 3V* [id number] REASON FOR EXAM: [place] PICS FINDINGS: Localization of distal toes during procedure. XR/XR foot LT min 3V* [id number] IMPRESSION: Procedural localization as above.
--- NOTE | 2024-07-28 08:59 | W.PM.OPSUD ---
Surgery/Procedure H&P Update DATE OF PROCEDURE: July 28, 2024 DATE H&P PERFORMED: 07/23/24 H&P UPDATE INFORMATION: I have reviewed H&P completed within last 30 days, I have examined patient prior to procedure, No changes to prior documentation and H&P is in [facility] [place] on date indicated PREOP DIAGNOSIS: Osteomyelitis left 2nd toe PLANNED PROCEDURE: Operation Date: 07/28/24 09:30 Proposed Procedures p Incision of Bone Cortex left foot second digit(Left) - Dilip Vides DPM
[2024-07-28] MEDS: gabapentin 300 mg Capsule PO (09:08)
[2024-07-28] MEDS: acetaminophen 1,000 MG/100 ML PIGGYBACK 400 MG IV (09:09)
[2024-07-28] MEDS: ceFAZolin 2,000 mg SDV 2000 MG IVP (09:30)
[2024-07-28] MEDS: sodium chloride 0.9% 1,000 ML 30 ML IV (09:35)
--- NOTE | 2024-07-28 09:57 | W.PM.BPON ---
Date of procedure: 07/28/24 Surgeon name: Dr. Dilip Vides DPM Traffic Engineering Technician(s) name(s): Simran Procedure(s) performed: Incision bone cortex left 2nd proximal phalanx Description of findings: Osteomyelitis left 2nd digit proximal phalanx Estimated blood loss: 5cc Tourniquet time: No tourniquet used Specimen(s) removed: left foot 2nd digit proximal phalanx head Post-operative diagnosis: osteomyelitis
--- NOTE | 2024-07-28 09:59 | PM.OP ---
Operative Report Date of procedure: July 28, 2024 Surgeon: Dilip Vides DPM Procedure: Date of procedure: 07/28/2024 Pre-op diagnosis: Osteomyelitis left foot second digit Post-op diagnosis: Same Post-op findings: Erosive changes to distal aspect of left foot second digit proximal phalanx Procedure done: Incision bone cortex left foot second digit proximal phalanx CPT 28746 Implants: None Specimens removed: Bone left foot second digit Surgeon: Dr. Dilip Vides DPM Digital Product Specialist: Simran Estimated blood loss: 5 cc Tourniquet time: No tourniquet Complications: None Patient is a 59-year-old male that has a history of left foot second digit osteomyelitis at the level of the head of the proximal phalanx with chronic ulceration. The patient has had the aforementioned chief complaint for some time. Conservative treatment measures have been attempted and the patient has opted for surgical intervention at this time. A lengthy discussion regarding the procedure, including risks and complications has been had with the patient and is noted in the recent clinic note. Written and verbal consent have been obtained. All patient questions have been answered to the patient?s satisfaction. No written or verbal guarantees have been given or implied. The patient has been NPO since midnight. The history has been reviewed and the history and physical is current. The signed consent was confirmed and placed in the patient chart. Patient imaging has been reviewed and is consistent with the diagnosis. Under mild sedation, the patient was brought into the operating room and placed on the table in the supine position. IV antibiotics were given by the anesthesia team as preoperative surgical prophylaxis. IV sedation was then performed by the anesthesiateam. A local field block was performed using 0.5% Marcaine plain. A pneumatic tourniquet was then placed about the left ankle. The operative extremity was then prepped and draped in the usual fashion. The tourniquet was not inflated. The following procedure was then performed. Attention was directed to the left foot second digit where a full-thickness ulceration was noted to the distal plantar aspect of the second digit. #15 blade was used to make an incision to excise the wound and expose the distal aspect of the head of the proximal phalanx. #15 blade was used to incise bone cortex to expose the entirety of the distal aspect of the proximal phalanx. The head of the proximal phalanx was noted to be discolored with erosive changes consistent with osteomyelitis. Using bone-cutting forceps the infected portion of bone was removed from the distal aspect of the second digit and passed from the operative field be sent a specimen. The remaining bone appeared healthy and viable in nature. The site was irrigated with copious amounts of sterile saline before attention was directed to closure. Periosteum was closed followed by skin closure using 4-0 nylon in simple interrupted fashion. The incision site was dressed with Xeroform, 4 x 4 gauze, Kerlix, Festus. The patient tolerated the procedure and anesthesia well and without complication. The patient was transported from the operating room to the recovery room with vital signs stable and vascular status intact to all digits of the left foot. The patient was given both written and verbal instructions to remain weightbearing as tolerated in postop shoe to the operative extremity, to keep dressings/splint clean, dry and intact and to take pain medication as directed. The patient will follow-up in the outpatient setting at their scheduled appointment. The patient was discharged with my personal number and was instructed to call if any questions or issues should arise. They were discharged home once anesthesia criteria was met.
[2024-07-28] MEDS: BUPivacaine 0.5% INJ 30 mL 10 ML INJECTION (10:00)
[2024-07-28 10:04] LABS: Glucose Point of Care 112 mg/dL (70-110)
== END 2024-07-28 10:50 | disposition home or self-care (01) ==
PROVIDERS: PCP Family Medicine; Visit Provider Podiatrist Foot & Ankle Surgery
PROC: (CPT 28005; principal; 2024-07-28 09:30)
DX: M86.8X7 Other osteomyelitis, ankle and foot (principal); I10 Essential (primary) hypertension; E11.9 Type 2 diabetes mellitus without complications; Z79.84 Long term (current) use of oral hypoglycemic drugs
CPT/HCPCS: 28005; 36416; 73630; 76000; 82962; 88305; 88311; J0131; J0690; J3490; J7030

== ENCOUNTER → 2024-08-04 16:20 | Outpatient (BNVA) | payer MEDICARE, SELFPAY | PROVIDERS: PCP Family Medicine; Visit Provider Podiatrist Foot & Ankle Surgery | DX: B35.1 Tinea unguium; L97.522 Non-pressure chronic ulcer of other part of left foot with fat layer exposed; M86.8X7 Other osteomyelitis, ankle and foot | CPT/HCPCS: 99024; 99213 ==

== ENCOUNTER → 2024-08-11 15:30 | Outpatient (BNVA) | payer MEDICARE, SELFPAY | PROVIDERS: PCP Family Medicine; Visit Provider Podiatrist Foot & Ankle Surgery | DX: B35.1 Tinea unguium; L97.522 Non-pressure chronic ulcer of other part of left foot with fat layer exposed; M86.8X7 Other osteomyelitis, ankle and foot | CPT/HCPCS: 99024 ==

== ENCOUNTER → 2024-08-25 15:48 | Outpatient (BNVA) | payer MEDICARE, SELFPAY | PROVIDERS: PCP Family Medicine; Visit Provider Podiatrist Foot & Ankle Surgery | DX: B35.1 Tinea unguium; L97.522 Non-pressure chronic ulcer of other part of left foot with fat layer exposed; Z98.890 Other specified postprocedural states; M86.8X7 Other osteomyelitis, ankle and foot | CPT/HCPCS: 99213 ==

== ENCOUNTER → 2024-09-30 16:01 | Outpatient (BNVA) | payer MEDICARE, SELFPAY | PROVIDERS: PCP Family Medicine; Visit Provider Podiatrist Foot & Ankle Surgery | DX: L97.522 Non-pressure chronic ulcer of other part of left foot with fat layer exposed (principal); B35.1 Tinea unguium; Z98.890 Other specified postprocedural states; G62.9 Polyneuropathy, unspecified; Z89.412 Acquired absence of left great toe; Z89.422 Acquired absence of other left toe(s); Z89.511 Acquired absence of right leg below knee; E11.42 Type 2 diabetes mellitus with diabetic polyneuropathy; L84 Corns and callosities; E11.621 Type 2 diabetes mellitus with foot ulcer; Z79.84 Long term (current) use of oral hypoglycemic drugs | CPT/HCPCS: 11055; 11720; 99213 ==

== ENCOUNTER → 2024-10-20 15:00 | Outpatient (BNVA) | payer MEDICARE, SELFPAY | PROVIDERS: PCP Family Medicine; Visit Provider Podiatrist Foot & Ankle Surgery | DX: B35.1 Tinea unguium (principal); Z98.890 Other specified postprocedural states; G62.9 Polyneuropathy, unspecified; Z89.412 Acquired absence of left great toe; Z89.422 Acquired absence of other left toe(s); Z89.511 Acquired absence of right leg below knee; Z79.84 Long term (current) use of oral hypoglycemic drugs; E11.8 Type 2 diabetes mellitus with unspecified complications | CPT/HCPCS: 99213 ==

== ENCOUNTER → 2024-12-01 16:06 | Outpatient (BNVA) | payer MEDICARE, SELFPAY | PROVIDERS: PCP Family Medicine; Visit Provider Podiatrist Foot & Ankle Surgery | DX: E11.621 Type 2 diabetes mellitus with foot ulcer (principal); L97.522 Non-pressure chronic ulcer of other part of left foot with fat layer exposed; G62.9 Polyneuropathy, unspecified; Z89.412 Acquired absence of left great toe; Z89.422 Acquired absence of other left toe(s); Z89.511 Acquired absence of right leg below knee; Z79.84 Long term (current) use of oral hypoglycemic drugs | CPT/HCPCS: 99214 ==

== ENCOUNTER → 2025-01-01 10:04 | Outpatient (BNVA) | payer MEDICARE, SELFPAY | PROVIDERS: PCP Family Medicine; Visit Provider Podiatrist Foot & Ankle Surgery | DX: E11.42 Type 2 diabetes mellitus with diabetic polyneuropathy (principal); L60.3 Nail dystrophy; G62.9 Polyneuropathy, unspecified; Z89.412 Acquired absence of left great toe; Z89.422 Acquired absence of other left toe(s); Z89.511 Acquired absence of right leg below knee | CPT/HCPCS: 11055; 11720 ==

== ENCOUNTER 2025-03-04 12:42 | Outpatient (CLI) | payer MEDICARE, SELFPAY ==
--- NOTE | 2025-03-04 12:54 | CT_ITS ---
WS: [id number] CT CHEST ANGIOGRAPHY WITH REFORMATS HISTORY: ELEVATED D DIMER TECHNIQUE: Contiguous axial images are obtained through the chest during arterial injection of intravenous contrast. Images are reconstructed to evaluate the pulmonary arteries. MIP imaging also reviewed. All CT scans at [facility] use at least one of these dose optimization techniques: automated exposure control; mA and/or kV adjustment per patient size (includes targeted exams where dose is matched to clinical indication); or iterative reconstruction. CONTRAST: Omnipaque 350; 100 mL IV. DLP: 428.76 mGy.cm COMPARISON: None available. Good opacification of the pulmonary arteries. No pulmonary embolism is identified. Good opacification of the arteries through the segmental and some of the subsegmental branches. No RIGHT heart strain. Marked LEFT heart enlargement. There is marked enlargement of the LEFT ventricle and LEFT atrium. Mild tricuspid regurgitation into the hepatic veins. Diffuse hazy attenuation throughout both lungs. No focal consolidation or mass. Very small layering LEFT pleural effusion. Small but numerous mediastinal and hilar lymph nodes. Hilar lymph nodes measure up to 13 mm. Small hiatal hernia. Prior gastric bypass. Visualized adrenal glands are negative. Mild increase in thoracic kyphosis. CT/CT angio chest PE protcl [id number] IMPRESSION: 1. No pulmonary embolism. 2. Marked enlargement of the LEFT heart including the ventricle and LEFT atriu m. 3. Diffuse hazy attenuation throughout both lungs. Likely this is interstitial edema. Pneumonitis may appear similar. 4. Mediastinal and hilar mildly enlarged lymph nodes. Reactive lymphadenopathy suspected. 5. Prior gastric bypass.
[2025-03-04] MEDS: iohexol 350 mg/mL 500 mL Btl (per mL) IV (13:30)
== END 2025-03-04 12:43 | disposition home or self-care (01) ==
PROVIDERS: PCP Family Medicine; Visit Provider Family Medicine
DX: I51.7 Cardiomegaly (principal); R59.1 Generalized enlarged lymph nodes; R79.89 Other specified abnormal findings of blood chemistry
CPT/HCPCS: 71275

== ENCOUNTER → 2025-03-05 10:31 | Outpatient (BNVA) | payer MEDICARE, SELFPAY | PROVIDERS: PCP Family Medicine; Visit Provider Podiatrist Foot & Ankle Surgery | DX: G62.9 Polyneuropathy, unspecified (principal); L60.3 Nail dystrophy; L97.522 Non-pressure chronic ulcer of other part of left foot with fat layer exposed; Z89.412 Acquired absence of left great toe; Z89.422 Acquired absence of other left toe(s); Z89.511 Acquired absence of right leg below knee; G62.89 Other specified polyneuropathies; L85.9 Epidermal thickening, unspecified | CPT/HCPCS: 11720; 99214 ==

== ENCOUNTER → 2025-03-18 14:09 | Outpatient (BNVA) | payer MEDICARE, SELFPAY | PROVIDERS: PCP Family Medicine; Visit Provider Podiatrist Foot & Ankle Surgery | DX: M20.42 Other hammer toe(s) (acquired), left foot (principal); L97.522 Non-pressure chronic ulcer of other part of left foot with fat layer exposed; G62.9 Polyneuropathy, unspecified | CPT/HCPCS: 28010; 28011; 99214 ==

== ENCOUNTER → 2025-03-25 14:01 | Outpatient (BNVA) | payer MEDICARE, SELFPAY | PROVIDERS: PCP Family Medicine; Visit Provider Podiatrist Foot & Ankle Surgery | DX: L97.522 Non-pressure chronic ulcer of other part of left foot with fat layer exposed (principal); G62.9 Polyneuropathy, unspecified; M20.42 Other hammer toe(s) (acquired), left foot | CPT/HCPCS: 99024 ==

== ENCOUNTER 2025-04-06 12:29 | Outpatient (CLI) | payer MEDICARE, SELFPAY ==
--- NOTE | 2025-04-06 12:40 | USCV_ITS ---
Harman Swanson Age: 59 Gender: M : 1965 Exam Date: 04/06/2025 12:58 Ordering Phys: Aida Myers Technologist: Exam Location: [facility] [place] Indication: ef cardiomegly BP: 120 / 70 HR: 106 Rhythm: Sinus Technical Quality: Adequate MEASUREMENTS (Male / Female) Normal Values 2D ECHO LV Diastolic Diameter PLAX 5.8 cm 4.2 - 5.9 / 3.9 - 5.3 cm IVS Diastolic Thickness 1.6 cm 0.6 - 1.0 / 0.6 - 0.9 cm IVS Systolic Thickness 1.1 cm LVPW Diastolic Thickness 1.4 cm 0.6 - 1.0 / 0.6 - 0.9 cm LVPW Systolic Thickness 1.6 cm LVOT Diameter 2.2 cm LV Ejection Fraction 2D Teich 8.2 % LV Ejection Fraction MOD 4C 16.4 % LV Ejection Fraction MOD 2C 32.2 % LV Ejection Fraction 2C AL 32.3 % LA Diameter 4.9 cm RA Systolic Volume 4C AL 77.3 ml RA Systolic Volume 4C MOD 74.7 ml LA Sys Volume AL 128.7 cm cubed LA Sys Volume Index AL 56.2 cm cubed/m squared Aorta at Sinotubular Diameter 3.8 cm IVC Diameter 2.3 cm M-MODE LA Ao Ratio MM 1.3 AV Cusp Separation MM 2.4 cm DOPPLER AV Peak Velocity 72.0 cm/s LVOT Peak Velocity 50.0 cm/s AV Area Cont Eq vti 3.1 cm squared AV Area Cont Eq pk 2.7 cm squared MV Peak Velocity 111.0 cm/s MV Area PHT 4.8 cm squared Mitral E to A Ratio 1.8 FINDINGS Left Ventricle Severe diffuse hypokinesis of the left ventricular ejection fraction of around 16%. Moderately dilated LV cavity Right Ventricle Mildly increased right ventricular size. Mildly decreased right ventricular systolic function. Right Atrium Mildly increased right atrial size. Left Atrium Moderately increased left atrial size. Mitral Valve Thickened mitral valve. Mild-moderate mitral valve regurgitation. Aortic Valve Thickened aortic valve. Tricuspid Valve Trace tricuspid valve regurgitation. Pulmonic Valve Trace pulmonary valve regurgitation. Pericardium No pericardial effusion. Aorta Normal aortic annulus size. IVC Normal size CONCLUSIONS Severe diffuse hypokinesis of the left ventricular ejection fraction of around 16%. Moderately dilated LV cavity. Mildly increased right ventricular size. Mildly decreased right ventricular systolic function. Mildly increased right atrial size. Moderately increased left atrial size. Thickened mitral valve. Mild-moderate mitral valve regurgitation. Thickened aortic valve. Trace tricuspid valve regurgitation. Trace pulmonary valve regurgitation. Compared to the study from 01/04/2022, there is a significant drop in the left ventricular ejection fraction from 55 - 60% to 16% Patient was found to be tachycardic(atrial fibrillation with rapid ventricular rate) during the study. The ejection fraction estimation could be misleading because of the tachycardia Dr Meg Avelar MD [facility] (Electronically Signed) Final Date: 08 April 2025 22:56 S
== END 2025-04-06 12:30 | disposition home or self-care (01) ==
PROVIDERS: PCP Family Medicine; Visit Provider Physician Assistant
DX: R60.1 Generalized edema (principal); R93.1 Abnormal findings on diagnostic imaging of heart and coronary circulation; I51.7 Cardiomegaly; I34.0 Nonrheumatic mitral (valve) insufficiency; I35.8 Other nonrheumatic aortic valve disorders; R00.0 Tachycardia, unspecified
CPT/HCPCS: 93306

== ENCOUNTER 2025-04-16 14:10 | Inpatient (IN) | payer MEDICARE, SELFPAY ==
[2025-04-16] VITALS (63 sets, daily range): BP systolic 78–120; BP diastolic 53–90; PULSE 0–153; RESP 9–50; TEMP 36.8; O2SAT 86–100; BMI 32.3
--- OUTSIDE RECORDS SUMMARY | 2025-04-16 14:16 | XMS_ITS | Encounter Summary ---
Author Organization [facility] Address [address] [place] [address] Care Team Providers Care Matrix Drier Tender Name Role Phone Timur Myers MD Primary Care Provider [phone] Encounter Details Date Type Department Care Team (Late st Contact Info) Description 06/19/2008 Outpatient Historical [facility] Cardiopulmonary Rehabilitation [address] [place] [address] Madhu Molina MD [address] [place] [phone] Social History Tobacco Use Types Packs/Day Years Used Date Smoking Tobacco: Never Assessed Sex and Gender Information Value Date Recorded Sex Assigned at Not on file Legal Sex Male 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
--- OUTSIDE RECORDS SUMMARY | 2025-04-16 14:16 | XMS_ITS | Encounter Summary ---
Author Organization [facility] Address [address] [place] [address] Care Team Providers Care Stretch Box Tender Name Role Phone Timur Myers MD Primary Care Provider [phone] Encounter Details Date Type Department Care Team (Late st Contact Info) Description 07/20/2008 Outpatient Historical [facility] Cardiopulmonary Rehabilitation [address] [place] [address] Madhu Molina MD [address] [place] [phone] Social History Tobacco Use Types Packs/Day Years Used Date Smoking Tobacco: Never Assessed Sex and Gender Information Value Date Recorded Sex Assigned at Not on file Legal Sex Male 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 SUPERVISOR BORDER 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
--- OUTSIDE RECORDS SUMMARY | 2025-04-16 14:16 | XMS_ITS | Encounter Summary ---
Author Organization [facility] Address [address] [place] [address] Care Team Providers Care Claims Processor Name Role Phone Timur Myers MD Primary Care Provider [phone] Encounter Details Date Type Department Care Team (Late st Contact Info) Description 05/11/2008 Outpatient Historical [facility] Cardiopulmonary Rehabilitation [address] [place] [address] Madhu Molina MD [address] [place] [phone] Social History Tobacco Use Types Packs/Day Years Used Date Smoking Tobacco: Never Assessed Sex and Gender Information Value Date Recorded Sex Assigned at Not on file Legal Sex Male 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 VIDEO NEWS EDITOR Gender Identity Not on file Sexual Orientation Not on file documented as of this encounter Plan of Treatment Not on file documented as of this encounter Visit Diagnoses Not on filedocumented in this encounter Additional Health Concerns Infection Onset Date Last Indicated Resolved Time MRSA Comment:Nares 03/23/17 Rt leg tissue 03/24/17 03/24/2017 03/24/2017 documented as of this encounter Care Teams Claims Processor Relationship Specialty Start Date End Date Timur Myers MD [address] [phone] PCP - General Family Practice 08/03/17 documented as of this encounter
--- OUTSIDE RECORDS SUMMARY | 2025-04-16 14:16 | XMS_ITS | Encounter Summary ---
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 Gender Identity Not on file Sexual Orientation Not on file documented as of this encounter Plan of Treatment Not on file documented as of this encounter Visit Diagnoses Diagnosis Other abnormal blood chemistry- Primary documented in this encounter Additional Health Concerns Infection Onset Date Last Indicated Resolved Time MRSA Comment:Nares 03/23/17 Rt leg tissue 03/24/17 03/24/2017 03/24/2017 documented as of this encounter Care Teams Rest Room Maid Relationship Specialty Start Date End Date Timur Myers MD [address] [phone] PCP - General Family Practice 08/03/17 documented as of this encounter
--- OUTSIDE RECORDS SUMMARY | 2025-04-16 14:16 | XMS_ITS | Encounter Summary ---
Author Organization [facility] Address [address] [place] [address] Care Team Providers Care Applications Systems Engineer Name Role Phone Timur Myers MD Primary Care Provider [phone] Encounter Details Date Type Department Care Team (Late st Contact Info) Description 05/11/2008 Outpatient Historical [facility] Cardiopulmonary Rehabilitation [address] [place] [address] Madhu Molina MD [address] [place] [phone] Social History Tobacco Use Types Packs/Day Years Used Date Smoking Tobacco: Never Assessed Sex and Gender Information Value Date Recorded Sex Assigned at Not on file Legal Sex Male 4:39 AM RETAIL GROCER Gender Identity Not on file Sexual Orientation Not on file documented as of this encounter Plan of Treatment Not on file documented as of this encounter Visit Diagnoses Not on filedocumented in this encounter Additional Health Concerns Infection Onset Date Last Indicated Resolved Time MRSA Comment:Nares 03/23/17 Rt leg tissue 03/24/17 03/24/2017 03/24/2017 documented as of this encounter Care Teams Applications Systems Engineer Relationship Specialty Start Date End Date Timur Myers MD [address] [phone] PCP - General Family Practice 08/03/17 documented as of this encounter
--- OUTSIDE RECORDS SUMMARY | 2025-04-16 14:16 | XMS_ITS | Encounter Summary ---
Author Organization [facility] Address [address] [place] [address] Care Team Providers Care Cash Applications Coordinator Name Role Phone Timur Myers MD Primary Care Provider [phone] Encounter Details Date Type Department Care Team (Late st Contact Info) Description 07/20/2008 Outpatient Historical [facility] Cardiopulmonary Rehabilitation [address] [place] [address] Madhu Molina MD [address] [place] [phone] Social History Tobacco Use Types Packs/Day Years Used Date Smoking Tobacco: Never Assessed Sex and Gender Information Value Date Recorded Sex Assigned at Not on file Legal 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 Male 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
--- OUTSIDE RECORDS SUMMARY | 2025-04-16 14:16 | XMS_ITS | Encounter Summary ---
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
--- OUTSIDE RECORDS SUMMARY | 2025-04-16 14:16 | XMS_ITS | Encounter Summary ---
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
--- OUTSIDE RECORDS SUMMARY | 2025-04-16 14:16 | XMS_ITS | Clinical Summary ---
Author Organization [facility] Address [address] [place]on: [place] [address] Care Team Providers Care Topographical Drafter Name Role Phone Timur Myers MD Primary Care Provider [phone] Allergies No known active allergies Medications glipiZIDE (GLUCOTROL) 5 mg tablet Take 5 mg by mouth daily with breakfast. 10/27/2019 Active irbesartan-hydroC HLOROthiazide (AVALIDE) 300-12.5 mg tablet Take 1 Tablet by mouth daily. 04/28/2019 Active doxycycline hyclate (VIBRAMYCIN) 100 mg tablet Take 1 Tablet (100 mg) by mouth 2 times daily. 20 Tablet 0 04/09/2017 Active exenatide microspheres (Bydureon) 2 mg Suspension,Sust.R elease Recon Takes Q Sunday. 02/02/2017 Active metFORMIN (GLUCOPHAGE) 1,000 mg tablet Take 1,000 mg by mouth 2 times daily with meals. 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 Leg wound, right 03/21/2017 Left shoulder pain 05/09/2016 Immunizations Immunization Administration Dates Next Due (PNEUMOVAX 23)(50 YRS UP) PN EUMOCOCCAL POLYSACCHARIDE (PPV23) 0.5 ML, IM 03/17/2017 (TDVAX)(7 YRS UP) TETANUS AN D DIPHTHERIA TOXOIDS, ADSORBED (2 LF OF TETANUS TOXOID AND 2 LF OF DIPHTHERIA TOXOID), 0.5ML (PF), IM 10/15/2007 Influenza Seasonal Unspecified Formulation IM ,07/23/2008 Social History Tobacco Use Types Packs/Day Years Used Date Smoking Tobacco: Never Smokeless Tobacco: Never Alcohol Use Standard Drinks/Week Comments Yes 2 (1 standard drink = 0.6 oz pur e alcohol) Sex and Gender Information Value Date Recorded Sex Assigned at Not on file Legal Sex Male 4:41 PM MENTAL HEALTH TECHNICIAN Gender Identity Not on file Sexual Orientation Not on file Last Filed Vital Signs Vital Sign Reading Time Taken Comments Blood Pressure 109/88 10/27/2019 11:07 AM MENTAL HEALTH TECHNICIAN Pulse 103 10/27/2019 11:07 AM MENTAL HEALTH TECHNICIAN Temperature 36.8 C (98.3 F) 04/02/2017 1:45 PM CDT Respiratory Rate 16 04/02/2017 1:45 PM CDT Oxygen Saturation - - Inhaled Oxygen Concentration - - Weight 108.9 kg (240 lb) 10/27/2019 11:07 AM MENTAL HEALTH TECHNICIAN Height 182.9 cm (6') 10/27/2019 11:07 AM MENTAL HEALTH TECHNICIAN Body Mass Index 32.55 10/27/2019 11:07 AM MENTAL HEALTH TECHNICIAN Plan of Treatment Health Maintenance Due Date Last Done Comments DIABETES ANNUAL FOOT EXAM 1985 DIABETES ANNUAL RETINAL EXAM 1985 DIABETES MICROALBUMIN ANNUAL SCREEN 1985 LDL CHOLESTEROL ANNUAL 1985 HEPATITIS B VACCINES (1 of 3 - 19+ 3-dose series) 1986 DTAP/TDAP/TD VACCINES (1 - Tdap) 10/16/2007 10/15/19 08 COLORECTAL SCREENING 2012 Colorectal Cancer Screening 2012 FIT-DNA Q 3 years 2012 FIT/FOBT Q 1 year 2012 Flex Sig/CT Colonography Q 5 years 2012 ZOSTER VACCINE (1 of 2) 2017 DIABETES HBA1C Q 6 MONTHS 09/24/2017 03/24/2017, 09/2016 INFLUENZA VACCINE (#1) 2025 07/14/2016, 2007 Medical Devices Implanted Type Area Logistics Team Leader Device Identifier Shelf Expiration Date Model / Serial / Lot Sealant Tisseel 10ml [id number] - [id number] Implanted:Qty: 1 on 03/15/2017 by Brooks Daniels MD Sealant Right: Leg [employer] 04/23/2018 [id number] / [id number] / [id number] Procedures Procedure Name Priority Date/Time Associated Diagnosis Comments HEMOGLOBIN A1C Routine 03/24/2017 12:29 PM CDT from Last 3 Months or Most Recently Relevant to Health Maintenance Results * (ABNORMAL) HEMOGLOBIN A1C (03/24/2017 12:29 PM CDT) HEMOGLOBIN A1C 6.7(H) 4.0 - 6.0 % 03/26/2017 12:24 PM CDT [facility] [employer] [facility] EST. AVG GLUCOSE, A1C 146 mg/dL 03/26/2017 12:24 PM CDT [facility] Blood Venipuncture / Unknown 03/24/2017 12:29 PM CDT 03/24/2017 12:42 PM CDT Narrative [facility] [employer] [facility] - 03/26/2017 12:24 PM CDT Test performed on ViigoII instrumentation using HPLC methodology us Ganesh Powell MD CHEMISTRY ORDERABLES Final R esult [facility] CLIA# [id number] [address] [place] [id number] [facility] [employer] [facility] CLIA # [id number] [address] [place] [address] from Last 3 Months or Most Recently Relevant to Health Maintenance Additional Health Concerns Infection Onset Date Last Indicated MRSA Comment:Nares 03/23/17Rt leg tissue 03/24/17 03/24/2017 03/23/2017 Care Teams Topographical Drafter Relationship Specialty Start Date End Date Timur Myers MD [address] [phone] PCP - General Family Practice 08/03/17
--- OUTSIDE RECORDS SUMMARY | 2025-04-16 14:16 | XMS_ITS | Encounter Summary ---
Author Organization [facility] Address [address] [place] [address] Care Team Providers Care Centerless Grinder Operator Name Role Phone Timur Myers MD Primary Care Provider Encounter Details Date Type Department Care Team (Latest Contact Info) Description 10/01/2001 Outpatient Historical [facility] Vasyl Acosta MD [address] [place] [address] DIABETES UNCOMPL ADULT-TYPE II (CMS/HCC) (Primary Dx) Social History Tobacco Use Types Packs/Day Years Used Date Smoking Tobacco: Never Assessed Sex and Gender Information Value Date Recorded Sex Assigned at Not on file Legal Sex Male 4:39 AM ASPHALT DAUBER Gender Identity Not on file Sexual Orientation Not on file documented as of this encounter Plan of Treatment Not on file documented as of this encounter Visit Diagnoses Diagnosis Type II or unspecified type diabetes mellitus without mention of complication, not stated as uncontrolled- Primary documented in this encounter Additional Health Concerns Infection Onset Date Last Indicated Resolved Time MRSA Comment:Nares 03/23/17 Rt leg tissue 03/24/17 03/24/2017 03/24/2017 documented as of this encounter Care Teams Centerless Grinder Operator Relationship Specialty Start Date End Date Timur Myers MD [address] [phone] PCP - General Family Practice 08/03/17 documented as of this encounter
--- OUTSIDE RECORDS SUMMARY | 2025-04-16 14:16 | XMS_ITS | Encounter Summary ---
Author Organization [facility] Address [address] [place] [address] Care Team Providers Care Digital Cartographer Name Role Phone Timur Myers MD Primary Care Provider [phone] Encounter Details Date Type Department Care Team (Latest Contact Info) Description 09/03/2001 Outpatient Historical [facility] Vasyl Acosta MD [address] [place] [address] DIABETES UNCOMPL ADULT-TYPE II (CMS/HCC) (Primary Dx); HYPERLIPIDEMIA NEC/NOS; HYPERTENSION NOS Social History Tobacco Use Types Packs/Day Years Used Date Smoking Tobacco: Never Assessed Sex and Gender Information Value Date Recorded Sex Assigned at Not on file Legal 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 Gender Identity Not on file Sexual Orientation Not on file documented as of this encounter Plan of Treatment Not on file documented as of this encounter Visit Diagnoses Diagnosis Type II or unspecified type diabetes mellitus without mention of complication, not stated as uncontrolled- Primary Other and unspecified hyperlipidemia Unspecified essential hypertension documented in this encounter Additional Health Concerns Infection Onset Date Last Indicated Resolved Time MRSA Comment:Nares 03/23/17 Rt leg tissue 03/24/17 03/24/2017 03/24/2017 documented as of this encounter Care Teams Digital Cartographer Relationship Specialty Start Date End Date Timur Myers MD [address] [phone] PCP - General Family Practice 08/03/17 documented as of this encounter
--- OUTSIDE RECORDS SUMMARY | 2025-04-16 14:16 | XMS_ITS | Encounter Summary ---
Author Organization [facility] Address [address] [place] [address] Care Team Providers Care Travel Money Advisor Name Role Phone Timur Myers MD Primary Care Provider [phone] Encounter Details Date Type Department Care Team (Late st Contact Info) Description 06/19/2008 Outpatient Historical [facility] Cardiopulmonary Rehabilitation [address] [place] [address] Madhu Molina MD [address] [place] [phone] Social History Tobacco Use Types Packs/Day Years Used Date Smoking Tobacco: Never Assessed Sex and Gender Information Value Date Recorded Sex Assigned at Not on file Legal Sex Male 4:39 AM COMPLIANCE INTERN Gender Identity Not on file Sexual Orientation Not on file documented as of this encounter Plan of Treatment Not on file documented as of this encounter Visit Diagnoses Not on filedocumented in this encounter Additional Health Concerns Infection Onset Date Last Indicated Resolved Time MRSA Comment:Nares 03/23/17 Rt leg tissue 03/24/17 03/24/2017 03/24/2017 documented as of this encounter Care Teams Travel Money Advisor Relationship Specialty Start Date End Date Timur Myers MD [address] [phone] PCP - General Family Practice 08/03/17 documented as of this encounter
--- OUTSIDE RECORDS SUMMARY | 2025-04-16 14:16 | XMS_ITS | Clinical Summary ---
Author Organization [facility] Address [address] [place] [address] Care Team Providers Care Retail Beauty Specialist Name Role Phone Timur Myers MD Primary Care Provider [phone] Allergies No known active allergies Medications metFORMIN (GLUCOPHAGE) 1,000 mg tablet Take 1,000 mg by mouth 2 times daily with meals. Active BYDUREON 2 mg Suspension,Sust. Release Recon Takes Q Sunday. 02/02/2017 Active doxycycline hyclate (VIBRAMYCIN) 100 mg tablet Take 1 Tablet (100 mg) by mouth 2 times daily. 20 Tablet 04/09/2017 Active irbesartan-hydro CHLOROthiazide (AVALIDE) 300-12.5 mg tablet Take 1 Tablet by mouth daily. Active glipiZIDE (GLUCOTROL) 5 mg tablet Take 5 mg by mouth daily with breakfast. 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 Leg wound, right [...] Date Smoking Tobacco: Never Smokeless Tobacco: Never Tobacco Cessation:Counseling Given: Yes Alcohol Use Standard Drinks/Week Comments Yes 2 (1 standard drink = 0.6 oz pur e alcohol) Sex and Gender Information Value Date Recorded Sex Assigned at Not on file Legal Sex Male 4:39 AM HAND UMBRELLA TIPPER Gender Identity Not on file Sexual Orientation Not on file Last Filed Vital Signs Vital Sign Reading Time Taken Comments Blood Pressure 109/88 10/27/2019 11:07 AM HAND UMBRELLA TIPPER Pulse 103 10/27/2019 11:07 AM HAND UMBRELLA TIPPER Temperature 36.8 C (98.3 F) 04/02/2017 1:45 PM CDT Respiratory Rate 16 04/02/2017 1:45 PM CDT Oxygen Saturation 90% 04/02/2017 1:45 PM CDT Inhaled Oxygen Concentration - - Weight 108.9 kg (240 lb) 10/27/2019 11:07 AM HAND UMBRELLA TIPPER Height 182.9 cm (6') 10/27/2019 11:07 AM HAND UMBRELLA TIPPER Body Mass Index 32.55 10/27/2019 11:07 AM HAND UMBRELLA TIPPER Plan of Treatment Health Maintenance Due Date Last Done Comments DIABETES ANNUAL FOOT EXAM 1985 DIABETES ANNUAL RETINAL EXAM 1985 HEPATITIS B VACCINES (1 of 3 - 19+ 3-dose series) 1986 LDL CHOLESTEROL ANNUAL 08/20/2002 08/20/2001 DIABETES MICROALBUMIN ANNUAL SCREEN 08/21/200208/21 DTAP/TDAP/TD VACCINES (1 - Tdap) 10/16/2007 10/15/19 08 COLORECTAL SCREENING 2012 Colorectal Cancer Screening 2012 FIT-DNA Q 3 years 2012 FIT/FOBT Q 1 year 2012 Flex Sig/CT Colonography Q 5 years 2012 ZOSTER VACCINE (1 of 2) 2017 DIABETES HBA1C Q 6 MONTHS 09/24/2017 03/24/2017, INFLUENZA VACCINE (#1) 2025 07/14/2016, 2007 Medical Devices Implanted Type Area Property Management Supervisor Device Identifier Shelf Expiration Date Model / Serial / Lot Sealant Tisseel 10ml [id number] - [id number] Implanted:Qty: 1 on 03/15/2017 by Brooks Daniels MD at [facility] Sealant Right: Leg [employer] 04/23/2018 [id number] / [id number] / [id number] Procedures Procedure Name Priority Date/Time Associated Diagnosis Comments HEMOGLOBIN A1C Routine 03/24/2017 12:29 PM CDT from Last 3 Months or Most Recently Relevant to Health Maintenance Results * (ABNORMAL) HEMOGLOBIN A1C (03/24/2017 12:29 PM CDT) HEMOGLOBIN A1C 6.7(H) 4.0 - 6.0 % 03/26/2017 12:24 PM CDT [facility] EST. AVG GLUCOSE, A1C 146 mg/dL 03/26/2017 12:24 PM CDT [facility] Blood Venipuncture / Unknown 03/24/2017 12:29 PM CDT 03/24/2017 12:42 PM CDT Narrative [facility] - 03/26/2017 12:24 PM CDT Test performed on [employer] instrumentation using HPLC methodology us Ganesh Powell MD CHEMISTRY ORDERABLES Final R esult [facility] CLIA# [id number] [facility] [place] [address] from Last 3 Months or Most Recently Relevant to Health Maintenance Additional Health Concerns Infection Onset Date Last Indicated MRSA Comment:Nares 03/23/17 Rt leg tissue 03/24/17 03/24/2017 03/24/2017 Insurance * Guarantor: Harman Swanson Account Type Relation to Patient Date of Phone Billing Address Personal/Family Self 1965 [phone] (Work) [address] [place] [id number] Advance Directives For more information, please contact: [phone] * Full Code (Latest Code Status on File) Date Activated Date Inactivated Comments 03/27/2017 11:30 AM 04/02/2017 8:01 PM * Full Code Date Activated Date Inactivated Comments 03/25/2017 8:34 AM 03/27/2017 11:30 AM * Full Code Date Activated Date Inactivated Comments 03/24/2017 8:03 AM 03/25/2017 8:34 AM * Full Code Date Activated Date Inactivated Comments 03/23/2017 5:04 PM 03/24/2017 8:03 AM * Full Code Date Activated Date Inactivated Comments 03/15/2017 2:46 PM 03/17/2017 3:39 PM Care Teams Retail Beauty Specialist Relationship Specialty Start Date End Date Timur Myers MD [address] [phone] PCP - General Family Practice 08/03/17
--- OUTSIDE RECORDS SUMMARY | 2025-04-16 14:16 | XMS_ITS | Encounter Summary ---
Author Organization 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
--- NOTE | 2025-04-16 14:17 | ECG_ITS ---
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 Measurements Intervals [place] Rate: 146 P: 0 FL: 0 QRS: -14 QRSD: 122 T: 96 QT: 299 QTc: 467 Interpretive Statements ATRIAL FIBRILLATION WITH RAPID VENTRICULAR RESPONSE WITH ABERRANT CONDUCTION OR VENTRICULAR PREMATURE COMPLEXES POSSIBLE ANTERIOR MYOCARDIAL INFARCTION , PROBABLY OLD [30 ms Q WAVE IN V3/V4, OR R < 0.2 mV IN V4] INTRAVENTRICULAR CONDUCTION DELAY ABNORMAL RHYTHM ECG Compared to ECG 11/28/2021 14:20:17 Ventricular premature complex(es) now present Myocardial infarct finding now present Sinus rhythm no longer present Left-axis deviation no longer present Electronically Signed On 04-17-2025 18:41:59 CDT by Fredis [email or web address]
--- NOTE | 2025-04-16 14:27 | XR_ITS ---
WS: [id number] Portable AP upright chest, 04/16/2025 Clinical Data: palpitations Comparison: PA and lateral chest, 02/25/2025 Findings: No nodules, masses or effusions are seen. The heart is enlarged. The pulmonary vascularity is not increased. No pneumonia or pneumothorax is seen. Monitor leads are on the chest wall. XR/XR chest 1V portable [id number] Impression: Cardiomegaly.
--- NOTE | 2025-04-16 14:39 | W.ED.ARRPALP ---
HPI - Arrhythmia/Palpitations General: Chief Complaint: Arrhythmia/Palpitations Stated Complaint: Rapid HR,sob, Time Seen by Provider: 04/16/25 14:26 History of Present Illness: 59-year-old man with a history ofObesity, diabetes and hypertension who presents the emergency room with shortness of breath. He is felt lightheaded. No chest pain. On presentation he is A-fib with RVR and mild low blood pressure. No fevers. No cough. No history of atrial fibrillation. No blood thinners. Related Data Home Medications ?Medication ?Instructions ?Recorded ?Confirmed glipizide 10 mg tablet 10 mg PO DAILY 11/28/21 03/25/25 metformin 500 mg tablet 500 mg PO BID 11/28/21 03/25/25 semaglutide 0.25 mg or 0.5 mg (2 2 mg SUBCUT Q7D 11/28/21 03/25/25 mg/1.5 mL) subcutaneous pen injector (Ozempic) Previous Rx's ?Medication ?Instructions ?Recorded tadalafil 20 mg tablet (Cialis) 20 mg PO DAILY PRN sexual activity 09/21/22 #20 tabs Diabetic Shoes with 3 custom #1 ea 12/19/24 inserts Allergies Allergy/AdvReac Type Severity Reaction Status Date / Time [id number]-[id number] Reductase Allergy ADR-Vomitin Verified 03/25/25 14:16 Inhibitor g Review of Systems Narrative: Constitutional symptoms: Negative except as documented in HPI. Skin symptoms: Negative except as documented in HPI. Eye symptoms: Negative except as documented in HPI. ENMT symptoms: Negative except as documented in HPI. Respiratory symptoms: Negative except as documented in HPI. Cardiovascular symptoms: Negative except as documented in HPI. Gastrointestinal symptoms: Negative except as documented in HPI. Genitourinary symptoms: Negative except as documented in HPI. Musculoskeletal symptoms: Negative except as documented in HPI. Neurologic symptoms: Negative except as documented in HPI. Psychiatric symptoms: Negative except as documented in HPI. Endocrine symptoms: Negative except as documented in HPI. [facility] ED PFS: Medical History (Updated 04/16/25 @ 16:20 by Cher Sims MD) HTN (hypertension) Diabetes Erectile dysfunction Surgical History Status post above-knee amputation of right lower extremity Family History Father , AT AGE 82 Heart disease Kidney disease Other CAD (coronary artery disease) Social History Smoking and tobacco/nicotine status: never used tobacco/nicotine Alcohol intake: current Alcohol intake frequency: few times a month Substance/Drug Use: never Marital status: Legally Current occupational status: retired Physical Exam Narrative: EXAM NARRATIVE: General: Alert, no acute distress. Skin: Warm, dry. Head: Normocephalic, atraumatic. Neck: Supple, trachea midline. Eye: Extraocular movements are intact. Ears, nose, mouth and throat: mucosa moist. Cardiovascular: Tachycardic, Normal peripheral perfusion. Respiratory: Lungs are clear to auscultation, respirations are non-labored, breath sounds are equal, Symmetrical chest wall expansion. Gastrointestinal: Soft, Nontender, Non distended Musculoskeletal: Normal ROM, no deformity. Neurological: Alert and oriented, No focal neurological deficit observed. Psychiatric: Cooperative, appropriate mood & affect. Course Vital Signs: Vital signs: Vital Signs Temperature 98.2 F 04/16/25 14:18 Pulse Rate 119 H 04/16/25 16:30 Respiratory Rate 21 H 04/16/25 16:30 Blood Pressure 105/73 04/16/25 16:30 Pulse Oximetry 98 04/16/25 16:30 Oxygen Delivery Me thod Room Air 04/16/25 14:48 MDM - Arrhythmia/Palpitations Medical Decision Making Medical decision making: Differential diagnosis including but not limited to and based on the above HPI, review of systems and physical exam: for patient with palpitations: atrial fibrillation with rapid ventricular response. ventricular tachycardia. sinus tachycardia. PVCs. also concern for underlying issues causing tachycardia. Infection, electrolyte abnormalities and thyroid issues. Orders placed to evaluate differential diagnosis based on the above differential, HPI and physical exam EKG: Time 1417. Rate 146. Atrial fibrillation with rapid ventricular response, No ST-T changes, no ectopy, This was reviewed and interpreted by myself the ER physician at 1420 Chest x-ray: Cardiomegaly. No infiltrate. No pneumothorax. This was reviewed and interpreted by myself the emergency room physician. I also reviewed the radiology report. Lab Review: Laboratory results were reviewed and interpreted by myself the emergency room physician. No leukocytosis. No anemia. Acute renal insufficiency with a BUN/creatinine of 36 and 1.5. He was normal 3 years ago. Potassium is mildly elevated at 5.2. Sodium is little low at 135. Initial troponin is elevated at 111. proBNP is also elevated at over 8000. I reviewed the patient's medical record. Reexamination: Patient's heart rate has slowed some. He has got down into the 1 teens and 120s. No increased work of breathing. No altered mental status. Consultation: I spoke with Dr. Velazquez who is on-call for the hospitalist service who agrees to admission to the ICU. Assessment and plan: A-fib with RVR Acute renal failure Mild hyperkalemia ?Amiodarone bolus and amiodarone drip. With his low blood pressure am starting with amiodarone because it has less effects on the blood pressure. 1 L normal saline bolus has been given. With combination of this and his heart rate coming down his blood pressure has improved some. -I discussed the patient with the hospitalist on-call who is admitting the patient. - Discussed findings and plan with patient. Answered any questions. - All laboratory values were reviewed and interpreted personally by myself, the ER physician - All imaging was reviewed and interpreted personally by myself, the ER physician. - Evaluation and treatment of this problem were appropriate in the emergency setting Critical Care: -I spent a total of >35 minutes of critical care time managing the patient, independent of any other practitioner. -The time involved in the performance of separately reportable procedures was not counted towards critical care time. Lab Data 04/16/25 14:33 04/16/25 14:33 Radiology Impressions Chest X-Ray 04/16/25 14:27 Impression: Cardiomegaly. Laboratory Results WBC 7.87 10^3/uL (3.29-11.43) 04/16/25 14:33 RBC 4.64 10^6/uL (3.85-5.65) 04/16/25 14:33 Hgb 13.80 g/dL (11.27-16.99) 04/16/25 14:33 Hct 41.0 % (37-53) 04/16/25 14:33 MCV 88.4 fl (82-101) 04/16/25 14:33 MCH 29.7 pg (27-33) 04/16/25 14:33 MCHC 33.7 g/dL (30-55) 04/16/25 14:33 RDW 17.5 % (12.1-15.1) H 04/16/25 14:33 Plt Count 289 10^3/cmm (157-399) 04/16/25 14:33 MPV 8.8 fL (7.4-10.4) 04/16/25 14:33 Neut % (Auto) 81.6 % 04/16/25 14:33 Lymph % (Auto) 9.3 % 04/16/25 14:33 Clinch % (Auto) 6.5 % 04/16/25 14:33 Eos % (Auto) 1.0 % 04/16/25 14:33 Baso % (Auto) 0.8 % 04/16/25 14:33 Neut # (Auto) 6.43 10^3/uL (1.8-7.7) 04/16/25 14:33 Lymph # (Auto) 0.7 10^3/uL (0.8-4.8) L 04/16/25 14:33 Clinch # (Auto) 0.5 10^3/uL (0.2-0.9) 04/16/25 14:33 Eos # (Auto) 0.1 10^3/uL (0.0-0.8) 04/16/25 14:33 Baso # (Auto) 0.1 10^3/uL (0.0-0.1) 04/16/25 14:33 Nucleated RBC % (auto) 0 % 04/16/25 14:33 Nucleated RBCs # 0.0 /100WBC 04/16/25 14:33 Sodium 135 mmol/L (136-145) L 04/16/25 14:33 Potassium 5.2 mmol/L (3.5-5.1) H 04/16/25 14:33 Chloride 102 mmol/L (98-107) 04/16/25 14:33 Carbon Dioxide 16 mmol/L (22-29) L 04/16/25 14:33 Anion Gap 22.2 (5-19) H 04/16/25 14:33 BUN 36 mg/dL (6-20) H 04/16/25 14:33 Creatinine 1.5 mg/dL (0.7-1.2) H 04/16/25 14:33 GFR Calculation 48.2 mL/min (90-130) L 04/16/25 14:33 Glucose 211 mg/dL (65-115) H 04/16/25 14:33 Calculated Osmolality 295 mOsm/kg (285-295) 04/16/25 14:33 Lactic Acid 2.3 mmol/L (0.5-2.2) H 04/16/25 14:33 Calcium 9.3 mg/dL (8.5-10.5) 04/16/25 14:33 Magnesium 2.0 mg/dL (1.7-2.3) 04/16/25 14:33 Total Bilirubin 0.9 mg/dL (0.15-1.2) 04/16/25 14:33 AST 21 U/L (0-40) 04/16/25 14:33 ALT 71 U/L (0-41) H 04/16/25 14:33 Alkaline Phosphatase 67 U/L (40-130) 04/16/25 14:33 Troponin T Baseline 111 ng/L (0-15) H* 04/16/25 14:33 NT-Pro-B Natriuret Pep 8248 pg/mL (0-125) H 04/16/25 14:33 Total Protein 6.5 g/dL (6.6-8.7) L 04/16/25 14:33 Albumin 3.9 g/dL (3.5-5.2) 04/16/25 14:33 Globulin 2.6 g/dL (1.3-4.6) 04/16/25 14:33 TSH 1.22 uIU/mL (0.27-4.20) 04/16/25 14:33 Serum Ketones Negative (Negative) 04/16/25 14:33 All radiology interpretation(s) finalized by discharge Discharge Plan Discharge Patient Disposition: Admitted As Inpatient Admit Provider: Casey Velazquez Clinical Impression: Atrial fibrillation with rapid ventricular response, Acute renal insufficiency, Hypotension Condition: Stable Coding Level of Care Code 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
[2025-04-16] MEDS: amiodarone 50 mg/mL SDV 3 mL 150 MG IVP (14:42)
[2025-04-16 14:47] LABS: Hematocrit 41.0 % (37-53); Hemoglobin 13.80 g/dL (11.27-16.99); Mean Corpuscular HGB Conc 33.7 g/dL (30-55); Mean Corpuscular Hemoglobin 29.7 pg (27-33); Mean Corpuscular Volume 88.4 fl (82-101); Nucleated Red Blood Cells % 0 %; Platelet Count 289 10^3/cmm (157-399); Red Blood Count 4.64 10^6/uL (3.85-5.65); White Blood Count 7.87 10^3/uL (3.29-11.43)
[2025-04-16 15:13] LABS: Lactic Sepsis W/Reflex 2.3 mmol/L (0.5-2.2)
[2025-04-16 15:20] LABS: Troponin(5th) Baseline 111 ng/L (0-15)
[2025-04-16 15:23] LABS: Alanine Aminotransferase 71 U/L (0-41); Albumin Level 3.9 g/dL (3.5-5.2); Alkaline Phosphatase 67 U/L (40-130); Anion Gap 22.2 (5-19); Aspartate Amino Transferase 21 U/L (0-40); Blood Urea Nitrogen 36 mg/dL (6-20); Calcium 9.3 mg/dL (8.5-10.5); Carbon Dioxide 16 mmol/L (22-29); Chloride 102 mmol/L (98-107); Creatinine Clr Calc Pharmacy 68.9684; Globulin 2.6 g/dL (1.3-4.6); Glucose 211 mg/dL (65-115); Magnesium 2.0 mg/dL (1.7-2.3); NT Pro B Type Natriuretic Pept 8248 pg/mL (0-125); Osmolality Calculated 295 mOsm/kg (285-295); Potassium 5.2 mmol/L (3.5-5.1); Sodium 135 mmol/L (136-145); Thyroid Stimulating Hormone 1.22 uIU/mL (0.27-4.20); Total Protein 6.5 g/dL (6.6-8.7)
[2025-04-16 16:28] LABS: Reflex Lactate Order REFLEX LACTIC ORDERD
--- NOTE | 2025-04-16 16:28 | ECG_ITS ---
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 Measurements Intervals [place] Rate: 123 P: 0 RI: 0 QRS: -51 QRSD: 131 T: 0 QT: 341 QTc: 488 Interpretive Statements ATRIAL FIBRILLATION WITH RAPID VENTRICULAR RESPONSE INTRAVENTRICULAR CONDUCTION DELAY [130+ ms QRS DURATION] Compared to ECG 04/16/2025 14:17:17 Intraventricular conduction delay now present Ventricular premature complex(es) no longer present Aberrant conduction of supraventricular beat(s) no longer present Myocardial infarct finding no longer present Electronically Signed On 04-18-2025 08:52:47 CDT by Isaiah Barr M.D. [email or web address]
[2025-04-16 16:43] LABS: ABG PCO2 23.2 mmHg (35-45); ABG PH Result 7.45 (7.35-7.45); Alveolar-Arterial Oxygen Gradi 3.4 mmHg (5-10); Arterial Blood Gas Hematocrit 41.3 % (42-52); Blood Gas Allen Test Pos; Blood Gas Operator Identificat CAK; Blood Gas Sample Site Radial, left; Blood Gas Sample Type Arterial; Carboxyhemoglobin 0.2 %THgb (0.4-20.1); Glucose Level-ABG 204.0 mg/dL (70-115); HCO3 ABG 16.3 mmol/L (22-26); Ionized Calcium Level - ABG 1.2 mmol/L (1.1-1.4); Methemoglobin < 0.0 % (0.4-1.5); Oxygen Saturation ABG 96.3; PO2 ABG 93.0 mmHg (80.0-100.0); PO2 FiO2 Ratio Arterial Blood 442; Potassium Level - ABG 5.0 mmol/L (3.5-5.0); Sodium Level - ABG 135.0 mmol/L (131-143)
[2025-04-16 16:45] LABS: Ketone (Acetest) Serum Negative (Negative)
[2025-04-16 17:07] LABS: Troponin 5 2HR Delta -1.5 ABS# (0-10)
[2025-04-16 17:08] LABS: Troponin 5 2HR 109.5 ng/L (0-15)
--- NOTE | 2025-04-16 17:51 | PM.HP ---
Providers/Chief Complaint Admitting Physician: Casey Velazquez MD Primary Care Provider: Timur Myers MD Chief Complaint: Rapid HR,sob, History of Present Illness Harman Swanson is a 59 year old male with a past medical history of atrial fibrillation, on Eliquis, type 2 diabetes mellitus, history of right above-knee amputation, hypertension, who presents [facility] due to shortness of breath and chest palpitations. 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 I did detailed discussion with Harman, his condition is critical, prognosis guarded, his echocardiogram showed that he is EF is 15%, with DALE creatinine 1.50 BNP over 8000, with evidence of heart failure and now A-fib with RVR and soft blood pressures. My concern currently he is in cardiogenic shock secondary to his systolic CHF, and A-fib with RVR. Discussed further heart rate control, IV diuresis for shortness of breath as he short of breath with a few words, at rest he is tachypneic, tachycardic, nasopharynx, suprasternal and intercostal retractions, in mild respiratory distress, when he talks he goes into moderate respiratory distress, discussed Harman's overall goals of care - Regular tells me that he does not want to be resuscitated, he is a DO NOT RESUSCITATE, does not want cardioversion, does not want CPR and is okay with drugs - He is okay with elective intubation required - Discussed watching his clinical condition closely - I have consulted cardiology - Will monitor him closely throughout the night - Discussed the risk of adverse cardiovascular events during the night, he voiced his understanding, all questions answered, Review of Systems Const: Denies: fever(s) or chills Card: Reports: palpitations Resp: Reports: dyspnea; Denies: non-productive cough GI: Denies: abdominal pain, nausea or vomiting : Denies: flank pain Neuro: Denies: headache(s) Medications/Allergies Home Medications ?Medication ?Instructions ?Recorded ?Confirmed ?Last Taken ?Type glipizide 10 mg tablet 10 mg PO DAILY 11/28/21 04/16/25 04/16/25 History Diabetic Shoes with 3 custom #1 ea 12/19/24 04/16/25 Unknown Rx inserts apixaban 5 mg tablet (Eliquis) 5 mg PO BID 04/16/25 04/16/25 04/16/25 History evolocumab 140 mg/mL subcutaneous 140 mg SUBCUT Q14D 04/16/25 04/16/25 04/15/25 History pen injector (Repatha SureClick) furosemide 40 mg tablet 40 mg PO BID 04/16/25 04/16/25 04/16/25 History metformin 1,000 mg tablet 1,000 mg PO BID 04/16/25 04/16/25 Unknown History metoprolol succinate 25 mg 12.5 mg PO DAILY 04/16/25 04/16/25 04/16/25 History tablet,extended release 24 hr oxybutynin chloride 10 mg 10 mg PO DAILY 04/16/25 04/16/25 04/16/25 History tablet,extended release 24 hr potassium chloride 10 mEq 20 meq PO BID 04/16/25 04/16/25 04/16/25 History tablet,extended release sacubitril 49 mg-valsartan 51 mg 1 tab PO BID 04/16/25 04/16/25 04/16/25 History tablet (Entresto) semaglutide 2 mg/dose (8 mg/3 mL) 2 mg SUBCUT Q7D 04/16/25 04/16/25 04/15/25 History subcutaneous pen injector (Ozempic) spironolactone 25 mg tablet 25 mg PO DAILY 04/16/25 04/16/25 04/16/25 History tamsulosin 0.4 mg capsule 0.4 mg PO DAILY 04/16/25 04/16/25 04/16/25 History Allergies Allergy/AdvReac Type Severity Reaction Status Date / Time Pljjtkh-CAS-QaU Reductase Allergy ADR-Vomitin Verified 03/25/25 14:16 Inhibitor g PFSH Acute PFSH: Medical History HTN (hypertension) Diabetes Erectile dysfunction Surgical History Status post above-knee amputation of right lower extremity Family History Father , AT AGE 82 Heart disease Kidney disease Other CAD (coronary artery disease) Social History Smoking and tobacco/nicotine status: never used tobacco/nicotine Alcohol intake: current Alcohol intake frequency: few times a month Substance/Drug Use: never Marital status: Legally Current occupational status: retired Vitals/I&O/Wt Last Vital Signs Temp 98.2 F 04/16/25 14:18 Pulse 128 H 04/16/25 17:22 Resp 21 H 04/16/25 16:30 BP 93/72 04/16/25 17:22 Pulse Ox 95 04/16/25 17:22 O2 Del Method Room Air 04/16/25 14:48 04/16/25 04/16/25 04/16/25 06:59 14:59 22:59 Intake Total 1000 / 1000 Balance 1000 / 1000 Weight last 48 hrs Weight 107.955 kg Physical Exam Const: COMMON NORMALS: no acute distress and patient oriented x3 Eye: COMMON NORMALS: Equal, round and reactive pupils present and EOMs intact bilaterally Resp: AUSCULTATION: crackles and wheezes OTHER: Intercostal, suprasternal retractions, nasal flaring, tachypnea, tachycardia Cardio: COMMON NORMALS: no JVD, regular rate, regular rhythm, S1 normal heart sound present and S2 normal heart sound present RATE: tachycardic RHYTHM: abnormal rhythm irregularly irregular HEART SOUNDS: S1 normal heart sound present and S2 normal heart sound present GI: COMMON NORMALS: Normal to inspection, nondistended, normoactive bowel sounds present, Soft to palpation and non-tender OTHER: , Does have anasarca Extremity: COMMON NORMALS: no pedal edema NARRATIVE EXTREMITY EXAM: Right above-knee amputation Neuro: COMMON NORMALS: patient oriented x3, CN's II-XII intact bilaterally and moves all extremities Psych: COMMON NORMALS: mental status grossly normal Quick SOFA Score: Respiratory Rate: 21 Blood Pressure: 93/72 Sheeba Coma Scale: 15 qSOFA Score: 1 If qSOFA score 2 or greater, continue: PaO2/FiO2 Ratio (mmHg): 442 Blood Pressure Mean: 83 Bilirubin (mg/dl): 0.9 Platelets (x10?/ml): 289 Creatinine (mg/dl): 1.5 SOFA Score: 1 Evaluation: Current stage of sepsis: ruled out/differential diagnosis Noninfectious sepsis mimickers: myocardial infarction and acute CHF Sepsis stage criteria used: Sepsis-3 Blood cultures ordered: Yes Focused Exam: Vital signs: Temp Pulse Resp BP Pulse Ox O2 Del Method 04/16/25 17:22 128 H 93/72 95 04/16/25 16:30 119 H 21 H 105/73 98 04/16/25 16:15 122 H 29 H 110/86 93 04/16/25 16:00 123 H 17 120/77 94 04/16/25 15:45 131 H 107/82 87 L 04/16/25 15:30 129 H 98/80 97 04/16/25 15:15 139 H 112/81 95 04/16/25 15:00 128 H 96/74 91 04/16/25 14:48 142 H 22 H 106/74 93 Room Air 04/16/25 14:47 144 H 111/90 92 04/16/25 14:45 150 H 20 H 111/90 93 Room Air 04/16/25 14:18 98.2 F 126 H 20 H 98/69 96 Room Air Respiratory exam: crackles present Cardiovascular exam: abnormal rhythm Capillary refill: > 3 Seconds Peripheral pulse strength: 2+ Slightly Diminished Peripheral pulse location: Radial and Pedal Skin exam: turgor normal Details: Right below-knee amputation Date exam was performed: 04/16/25 Time exam was performed: 18:05 Sepsis Screen No Definite Risk Today, 16:30 Respiratory Rate, (12 - 18) 21 breaths/min H Today, 16:30 Blood Pressure 93/72 mmHg Today, 17:22 Rippey Coma Scale Score 15 Today, 14:18 Quick SOFA Score 0 Today, 16:30 SOFA Score: ABG PO2/FiO2 Ratio 442 Today, 16:31 Rippey Coma Scale Score 15 Today, 14:18 Blood Pressure Mean 83 mmHg Today, 16:30 Total Bilirubin, (0.15-1.2) 0.9 mg/dL Today, 14:33 Platelet Count, (157-399) 289 10^3/cmm Today, 14:33 Creatinine, (0.7-1.2) 1.5 mg/dL H Today, 14:33 Data 04/16/25 14:33 04/16/25 14:33 Micro: Microbiology 04/16/25 14:38 Blood Culture - Preliminary Blood SPECIMEN COLLECTED 04/16/25 14:33 Blood Culture - Preliminary Blood SPECIMEN COLLECTED A&P Assessment and plan 1. Cardiogenic shock: 2. Atrial fibrillation with rapid ventricular response: 3. Ischemic cardiomyopathy: 4. Systolic CHF: 5. Acute kidney injury: 6. NSTEMI (non-ST elevated myocardial infarction): 7. Acute hypoxic respiratory failure: Plan: Acute hypoxic respiratory failure - Multifactorial - From systolic CHF exacerbation, pulm edema, fluid overload - From A-fib with RVR -Recently had a CT angiogram of the chest was negative for PE 03/04/2025 CT/CT angio chest PE protcl [id number] IMPRESSION: 1. No pulmonary embolism. 2. Marked enlargement of the LEFT heart including the ventricle and LEFT atrium. 3. Diffuse hazy attenuation throughout both lungs. Likely this is interstitial edema. Pneumonitis may appear similar. 4. Mediastinal and hilar mildly enlarged lymph nodes. Reactive lymphadenopathy suspected. 5. Prior gastric bypass. Plan - Monitor respiratory status closely - ABG - Amiodarone drip with amiodarone bolus - Therapeutic Lovenox - Lasix 40 IV twice daily, with albumin twice daily - Levophed, maintain MAP in the 75 - DuoNeb as needed - BiPAP as needed - DNR, does not want CPR, does not want cardioversion, okay to with drugs per ACLS - Okay with elective intubation if required Systolic CHF 03/2025 CONCLUSIONS Severe diffuse hypokinesis of the left ventricular ejection fraction of around 16%. Moderately dilated LV cavity. Mildly increased right ventricular size. Mildly decreased right ventricular systolic function. Mildly increased right atrial size. Moderately increased left atrial size. Thickened mitral valve. Mild-moderate mitral valve regurgitation. Thickened aortic valve. Trace tricuspid valve regurgitation. Trace pulmonary valve regurgitation. Compared to the study from 01/04/2022, there is a significant drop in the left ventricular ejection fraction from 55 - 60% to 16% Patient was found to be tachycardic(atrial fibrillation with rapid ventricular rate) during the study. The ejection fraction estimation could be misleading because of the tachycardia NSTEMI -Currently EKG no acute ST-T wave changes, no chest pain - Type I versus type II -Serial EKGs, serial troponins, telemetry monitoring - Aspirin, statin - Repeat cardiac echo - Therapeutic Lovenox Acute kidney injury - Recent history of CT angiogram of chest, possible: Contrast-induced nephropathy - Concerns for cardiorenal syndrome Atrial fibrillation with rapid ventricular response - Amiodarone drip - Therapeutic Lovenox Cardiogenic shock - Multifactorial from systolic CHF, concern for ischemic cardiomyopathy, NSTEMI - Start Levophed - Can consider dobutamine however high risk of tachyarrhythmia with patient's current A-fib with RVR Type 2 diabetes mellitus, low-dose sliding scale Lovenox for DVT prophylaxis DNR, okay with elective intubation if required Prognosis is guarded, status is critical PDMP PDMP Reviewed: Not Reviewed Attestations Medical Necessity Statement*: Patient requires hospitalization, inpatient, greater than 2 midnights, for acute hypoxic respiratory failure, A-fib RVR, cardiogenic shock, DALE, acute pulmonary edema, Coding Level of Care Code Critical Care >/= 30 minutes Critical care time (in minutes): 45 The high probability of a clinically significant, sudden or life threatening deterioration, as referenced in this documentation, required my full and direct attention, intervention and personal management. The critical care time shown is in addition to time spent performing any reported separately billable procedures and includes the following: [x] Data and vital sign review and interpretation [x] Patient assessment, examination and intervention [x] Medication orders and management [x] Patient/Family updates as able [x] Care Coordination and Documentation. Diagnoses Cardiogenic shock R57.0 Atrial fibrillation with rapid ventricular response I48.91 Ischemic cardiomyopathy I25.5 Systolic CHF I50.20 Acute kidney injury N17.9 NSTEMI (non-ST elevated myocardial infarction) I21.4 Acute hypoxic respiratory failure J96.01
--- NOTE | 2025-04-16 17:59 | US_ITS ---
WS: [id number] RENAL ULTRASOUND URINARY BLADDER ULTRASOUND HISTORY: tiffani COMPARISON: 01/24/2021 TECHNIQUE: 2-D and color Doppler imaging of the kidney submitted. Right kidney: 9.5 cm x 5.5 cm x 5.4 cm. Cortex: 1.5 cm Normal size kidney. No obstruction. Tiny cortical cyst lower pole measures 0.7 cm. Left kidney: 10.4 cm x 5.0 cm x 5.2 cm. Cortex: 1.9 cm Normal echogenicity with no hydronephrosis or mass. Aorta: Normal. Urinary Bladder: Normal distention. Prevoid volume: 294 mL. Patient was unable to void. US/US renal BI* [id number] IMPRESSION: Normal renal ultrasound. Urinary bladder is normally distended. Patient was unable to void for post void volumes.
--- NOTE | 2025-04-16 17:59 | USCV_ITS ---
Harman Swanson Age: 59 Gender: M : 1965 Exam Date: 04/16/2025 19:18 Ordering Phys: Casey Velazquez MD Technologist: ANNEMARIE [place] [facility] [place]: This is a limited exam to re-evaluate EF and wall motion only. Patient had full echo 04/06/2025 BP: 78 / 64 HR: 100 Rhythm: Sinus Technical Quality: Adequate MEASUREMENTS (Male / Female) Normal Values 2D ECHO LV Diastolic Diameter PLAX 5.8 cm 4.2 - 5.9 / 3.9 - 5.3 cm IVS Diastolic Thickness 0.9 cm 0.6 - 1.0 / 0.6 - 0.9 cm IVS Systolic Thickness 1.1 cm LVPW Diastolic Thickness 0.9 cm 0.6 - 1.0 / 0.6 - 0.9 cm LVPW Systolic Thickness 1.2 cm LV Ejection Fraction 2D Teich 16.1 % LV Ejection Fraction MOD 4C 12.2 % LV Ejection Fraction MOD 2C 11.2 % LV Ejection Fraction 2C AL 10.1 % FINDINGS Left Ventricle Moderately increased left ventricular cavity size. Severely decreased left ventricular systolic function. Left ventricular ejection fraction is estimated at 10-15 %. There appeaed to be mid to distal anterior septal and apical akinesus suggestive of Ischemiac cardiomyopahty possible lesion in LAD territory. Right Ventricle Right Atrium Left Atrium Mitral Valve Aortic Valve Tricuspid Valve Pulmonic Valve Pericardium Aorta IVC CONCLUSIONS Limited echo Moderately increased left ventricular cavity size. Severely decreased left ventricular systolic function. Left ventricular ejection fraction is estimated at 10-15 %. There appeaed to be mid to distal anterior septal and apical akinesus suggestive of Ischemiac cardiomyopahty possible lesion in LAD territory. There is no pericardial effusion. Roxy Paniagua MD (Electronically Signed) Final Date: 17 April 2025 23:19 S
[2025-04-16] MEDS: FUROsemide 10 mg/mL SDV 4mL 40 MG IVP (18:32)
[2025-04-16] MEDS: albumin 25 G/100 ML VIAL IV (18:32)
[2025-04-16] MEDS: pantoprazole 40 mg SDV IVP (18:32)
[2025-04-16 19:22] LABS: Lactic Acid level (Lactate) 2.1 mmol/L (0.5-2.2)
[2025-04-16 19:24] LABS: Procalcitonin 0.10 ng/mL (0-0.5); Thyroid Stimulating Hormone 1.41 uIU/mL (0.27-4.20)
[2025-04-16 19:37] LABS: Cholesterol 92 mg/dL (0-200); HDL Cholesterol 37 mg/dL (60-100); Magnesium 2.0 mg/dL (1.7-2.3); Triglycerides 103 mg/dL (0-150)
[2025-04-16 19:41] LABS: Alcohol Level < 10 mg/dL (0-10)
[2025-04-16 19:50] LABS: Estmated Average Glucose 137; Hemoglobin A1C 6.4 % (4.0-6.0)
[2025-04-16] MEDS: morphine 4 mg/mL SDV 1 mL 1 MG IVP (20:14)
--- NOTE | 2025-04-16 20:26 | ECG_ITS ---
[facility] Pat Name: Harman Swanson Department: Room: [facility] Gender: Male [employer] Supervisor: : 1965 Requested By: Cher Siegel Order Number: [id number] Avery MD: Isaiah Barr M.D. Measurements Intervals Milligan Rate: 117 P: 0 AL: 0 QRS: -30 QRSD: 137 T: 40 QT: 368 QTc: 514 Interpretive Statements ATRIAL FIBRILLATION WITH RAPID VENTRICULAR RESPONSE BORDERLINE LEFT AXIS DEVIATION [QRS AXIS < -20] INTRAVENTRICULAR CONDUCTION DELAY [130+ ms QRS DURATION] Compared to ECG 04/16/2025 16:28:40 No significant changes Electronically Signed On 04-18-2025 08:52:00 CDT by Isaiah Barr M.D. [email or web address] [id number]
[2025-04-16 21:22] LABS: Glucose Urine UA Negative (Normal); Nitrate Urine Negative (Negative); Specific Gravity, Urine 1.018 (1.005-1.030)
[2025-04-16 21:27] LABS: Add Urine Microscopic? YES
[2025-04-16 21:28] LABS: PCP Screen Urine Negative (Negative)
[2025-04-16 21:37] LABS: Troponin 5 6HR 211.7 ng/L (0-15); Troponin 5 6HR Delta 100.7 ng/L (0-12)
[2025-04-16 21:40] LABS: UA Slide Review UA Slide Review Perf
[2025-04-17] VITALS (48 sets, daily range): BP systolic 85–137; BP diastolic 62–102; PULSE 89–122; RESP 8–46; TEMP 36.6; O2SAT 80–100
[2025-04-17] MEDS: albumin 25 G/100 ML VIAL IV ×2 (05:24→17:48)
[2025-04-17] MEDS: FUROsemide 10 mg/mL SDV 4mL 40 MG IVP ×2 (05:25→17:48)
[2025-04-17 05:39] LABS: Hematocrit 44.4 % (37-53); Hemoglobin 14.00 g/dL (11.27-16.99); Mean Corpuscular HGB Conc 31.5 g/dL (30-55); Mean Corpuscular Hemoglobin 28.5 pg (27-33); Mean Corpuscular Volume 90.4 fl (82-101); Nucleated Red Blood Cells % 0 %; Platelet Count 314 10^3/cmm (157-399); Red Blood Count 4.91 10^6/uL (3.85-5.65); White Blood Count 8.08 10^3/uL (3.29-11.43)
[2025-04-17 05:52] LABS: INR 1.64 (0.8-1.2); Prothrombin Time 20.40 SECONDS (12.1-14.9)
[2025-04-17 05:59] LABS: Alanine Aminotransferase 168 U/L (0-41); Albumin Level 3.8 g/dL (3.5-5.2); Alkaline Phosphatase 119 U/L (40-130); Anion Gap 20.0 (5-19); Aspartate Amino Transferase 149 U/L (0-40); Blood Urea Nitrogen 40 mg/dL (6-20); Calcium 9.0 mg/dL (8.5-10.5); Carbon Dioxide 19 mmol/L (22-29); Chloride 101 mmol/L (98-107); Creatinine Clr Calc Pharmacy 54.4487; Globulin 3.1 g/dL (1.3-4.6); Glucose 158 mg/dL (65-115); Magnesium 2.3 mg/dL (1.7-2.3); Osmolality Calculated 293 mOsm/kg (285-295); Potassium 5.0 mmol/L (3.5-5.1); Sodium 135 mmol/L (136-145); Total Protein 6.9 g/dL (6.6-8.7)
[2025-04-17 06:04] LABS: NT Pro B Type Natriuretic Pept 14901 pg/mL (0-125)
--- NOTE | 2025-04-17 06:58 | XR_ITS ---
WS: [id number] Portable AP supine chest, 04/17/2025 Clinical Data: Post PICC insertion Comparison: Portable chest, 04/16/2025 Findings: No nodules, masses or effusions are seen. The heart is enlarged. The pulmonary vascularity is increased. No pneumonia or pneumothorax is seen. The right PICC line ends in the superior vena cava. Monitor leads are on the chest wall. XR/XR chest 1V portable [id number] Impression: 1. Cardiomegaly and pulmonary vascular congestion. 2. Satisfactory position of right PICC line.
--- NOTE | 2025-04-17 08:03 | PICC.NOTE ---
Triple lumen PICC placed to right basilic vein. Referred to vascular access nurse for PICC placement due to use of vasopressors. Risks and benefits discussed and informed consent obtained from pt. Right arm assessed with right basilic vein measuring 5.0 mm, straight, and apparent best choice for placement. Using sterile technique and MST, right basilic vein accessed x 1 stick. Mid-arm circumference measured 10 cm from right AC 30 cm. Trimmed cath 41 cm with 0 cm external length noted. CXR shows tip to appear to be in SVC. Awaiting radiology to read. Line secured with stat-lock. Insertion site covered with Biopatch and TSM. Report given to bedside nurse, SONNY Jimenez.
[2025-04-17] MEDS: ondansetron 2 mg/ML SDV 2 mL 4 MG IVP (08:52)
--- NOTE | 2025-04-17 09:18 | PC.SOCIAL ---
IMM Updated Updated pt on IMM. No questions voiced. Provided pt a copy. Initialed, dated, & timed a copy & placed in chart.
--- NOTE | 2025-04-17 10:59 | P.CONIM_ITS ---
<Statement entered by Isaiah Barr M.D - 04/18/25 12:59> Patient was evaluated and cared for in conjunction with an advanced practice practitioner.? I personally examined the patient and reviewed the chart and all pertinent data including imaging, telemetry, and laboratory results.? I discussed the patient in detail with the advanced practice practitioner.? Please see? their note for complete consult note, testing results and agreed upon plan of care for the patient. GENERAL: Patient is alert, awake and oriented x3. HEART: Irregularly irregular LUNGS: Diminshed air entry bilaterally CENTRAL NERVOUS SYSTEM: Grossly nonfocal. EXTREMITIES: Right lower extremity has amputation. 1+ edema on lt lower extremity Patient's systolic function is severely reduced and this is new onset. Will proceed with coronary angiogram once renal function is back to baseline. Continue anticoagulation and amiodarone. Thank you for involving us with care of this patient. We will continue to follow. Please call with questions. Providers/Reason For Consult 2 Consulting Physician/Specialty*: Dr Barr, cardiology Reason for Consult*: Atrial fibrillation with RVR, elevated troponin, volume overload Requesting Physician: Casey Velazquez MD Attending Physician: Casey Velazquez MD Primary Care Provider: Timur Myers MD History of Present Illness History of Present Illness Harman Swanson is a 59 year old male with past medical history of atrial fibrillation, diabetes, right lghst-bbb-cdde amputation, hypertension. No previous history of CAD or CHF. He is a DNR, declines cardioversion and CPR. He presented to the emergency room yesterday due to shortness of breath and palpitations. He notes he began swelling about a month ago in the left leg and the abdomen. 2 days ago he developed pain in the upper chest which was intermittent, lasting 10 minutes in duration along with orthopnea. His usual weight was 238 pounds, he endorses a 10 pound weight gain. He was found to have atrial fibrillation with RVR, ventricular rates in the 140s. BNP was 8248, creatinine 1.5. Troponin series:111-> 109-> 211. Echocardiogram obtained 04/06/2025 by his PCP showed LVEF 16%, however he was in atrial fibrillation with heart rate 106 during the study which may adversely affect the accuracy of the LVEF. He was started on therapeutic Lovenox, amiodarone infusion and received 1 L IV fluid bolus. He was diuresed with Lasix and metolazone. He has put out 600 mL of urine so far. Review of Systems 2 Card: Reports: chest pain (2 days ago), edema (left leg and abdomen), swelling of feet/ankles, dyspnea on exertion and orthopnea; Denies: lightheadedness, syncope, pre-syncope or leg pain with exertion Resp: Reports: dyspnea; Denies: productive cough or wheezing GI: Denies: hematochezia : Denies: hematuria Eloy/Lymph: Denies: easy bleeding Medications/Allergies Home Medications ?Medication ?Instructions ?Recorded ?Confirmed ?Last Taken ?Type glipizide 10 mg tablet 10 mg PO DAILY 11/28/2103/2504/16/25 History Diabetic Shoes with 3 custom #1 ea 12/19/24 04/16/25 U nknown Rx inserts apixaban 5 mg tablet (Eliquis) 5 mg PO BID 04/16/2504/16/25 History evolocumab 140 mg/mL subcutaneous 140 mg SUBCUT Q14D 0 04/16/25 04/16/25 04/15/25 History pen injector (Repatha SureJaiick) furosemide 40 mg tablet 40 mg PO BID 04/16/2504/16/25 History metformin 1,000 mg tablet 1,000 mg PO BID 04/16/25 Unknown History metoprolol succinate 25 mg 12.5 mg PO DAILY 04/16/25 0 04/16/25 04/16/25 History tablet,extended release 24 hr oxybutynin chloride 10 mg 10 mg PO DAILY 04/16/2503/2504/16/25 History tablet,extended release 24 hr potassium chloride 10 mEq 20 meq PO BID 04/16/2504/1604/16/25 History tablet,extended release sacubitril 49 mg-valsartan 51 mg 1 tab PO BID 04/16/25 04/16/25 04/16/25 History tablet (Entresto) semaglutide 2 mg/dose (8 mg/3 mL) 2 mg SUBCUT Q7D 03/2504/16/25 04/15/25 History subcutaneous pen injector (Ozempic) spironolactone 25 mg tablet 25 mg PO DAILY 04/16/2504/16/25 History tamsulosin 0.4 mg capsule 0.4 mg PO DAILY 04/16/2504/16/25 History Allergies Allergy/AdvReac Type Severity Reaction Status Date / Time Kamhibp-HMM-KiK Reductase Allergy ADR-Vomitin Verified 03/25/25 14:16 Inhibitor g Current Medications Generic Name Dose Route Start Last Admin Trade Name Freq PRN Reason Stop Dose Admin Alprazolam 0.25 mg 04/16/25 17:59 04/16/25 21:03 Alprazolam 0.5 Mg Tablet PO 0.25 mg TID PRN Administration ANXIETY Aspirin 81 mg 04/16/25 17:45 04/17/25 08:49 Aspirin 81 Mg Ec Tablet PO 81 mg DAILY DIONNA Administration Enoxaparin Sodium 100 mg 04/16/25 18:00 04/17/25 05:24 Enoxaparin 100 Mg/Ml Syringe SUBCUT 100 mg Q12H DIONNA Administration Furosemide 40 mg 04/16/25 17:45 04/17/25 05:25 Furosemide 10 Mg/Ml Sdv 4ml IVP 40 mg Q12H DIONNA Administration Albumin Human 25 g in 100 mls @ 60 mls/hr 04/16/25 18:00 04/17/25 06:30 Albumin IV Infused Q12H DIONNA Infusion Insulin Human Lispro 0 unit 04/16/25 18:00 04/17/25 11:50 Insulin Lispro 100 Unit/1 Ml SUBCUT 6 unit TIDWM DIONNA Administration Protocol Morphine Sulfate 1 mg 04/16/25 17:42 04/16/25 20:14 Morphine 4 Mg/Ml Sdv 1 Ml IVP 1 mg Q4H PRN Administration SEVERE PAIN Ondansetron HCl 4 mg 04/16/25 17:42 04/17/25 08:52 Ondansetron 2 Mg/Ml Sdv 2 Ml IVP 4 mg Q8H PRN Administration vomiting, or N/V if npo Pantoprazole Sodium 40 mg 04/16/25 17:45 04/16/25 18:32 Pantoprazole 40 Mg Sdv IVP 40 mg Q24H DIONNA Administration PFSH Acute 2 PFSH: Medical History (Updated 04/16/25 @ 17:59 by Casey Velazquez MD) HTN (hypertension) Diabetes Erectile dysfunction Surgical History Status post above-knee amputation of right lower extremity Family History Father , AT AGE 82 Heart disease Kidney disease Other CAD (coronary artery disease) Social History Smoking and tobacco/nicotine status: never used tobacco/nicotine Alcohol intake: current Alcohol intake frequency: few times a month Substance/Drug Use: never Marital status: Legally Current occupational status: retired Vitals/I&O/Wt Last Vital Signs Temp 98.2 F 04/16/25 14:18 Pulse 103 H 04/17/25 12:30 Resp 30 H 04/17/25 12:30 BP 104/81 04/17/25 12:30 Pulse Ox 92 04/17/25 12:30 O2 Del Method Room Air 04/16/25 17:21 04/17/25 04/17/25 04/17/25 06:59 14:59 22:59 Intake Total 624.747 / 1962.501 120 / 120 Output Total 600 / 600 Balance 24.747 / 1362.501 120 / 120 Weight last 48 hrs Weight 238 lb Physical Exam 2 Const: COMMON NORMALS: no acute distress and patient oriented x3 GENERAL APPEARANCE: cooperative and comfortable ORIENTATION/CONSCIOUSNESS: Yes awake, Yes oriented to person, Yes oriented to place and Yes oriented to time Chest: COMMONS NORMALS: normal inspection of the chest and normal palpation of entire chest wall CHEST: Yes Symmetrical chest wall rise Resp: COMMON NORMALS: normal respiratory effort, No retractions and No use of accessory muscles EFFORT & INSPECTION: Yes symmetric chest movement A USCULTATION: crackles Cardio: COMMON NORMALS: regular rate, regular rhythm, S1 normal heart sound present, S2 normal heart sound present, No gallops present (Cardio), No clicks present (Cardio), No murmurs present (Cardio) and No rub (Cardio) RATE: r egular rate RHYTHM: regular rhythm HEART SOUNDS: S1 normal heart sound present and S2 normal heart sound present PERIPHERAL PULSES: radial pulses present Extremity: LEFT LOWER EXTREMITY: Yes lower leg (1+ edema) Neuro: COMMON NORMALS: patient oriented x3 and moves all extremities S ENSORIUM/ORIENTATION: Yes oriented to person, Yes oriented to place and Yes oriented to time Urinary Catheter Management: Wolfe: Cath Placed During This Visit: yes Reason for Continuing Indwelling Catheter: Accurate Measurement of Urinary Output in Critically Ill Patients Urinary Catheter Date of Insertion: 04/16/25 Urinary Catheter Time of Insertion: 20:56 Data 04/17/25 04:37 04/17/25 12:25 Micro: Microbiology 04/16/25 14:38 Blood Culture - Preliminary Blood NEGATIVE TO DATE 04/16/25 14:33 Blood Culture - Preliminary Blood NEGATIVE TO DATE 04/16/25 18:31 Blood Culture - Preliminary Blood SPECIMEN COLLECTED 04/16/25 18:31 Blood Culture - Preliminary Blood SPECIMEN COLLECTED A&P Assessment and plan 1. Systolic CHF: 2. NSTEMI (non-ST elevated myocardial infarction): 3. Atrial fibrillation with rapid ventricular response: 4. Acute kidney injury: Plan: He has new onset systolic heart failure, with elevated troponin, volume overload. Creatinine is 1.9 this morning, BNP 54897. His creatinine on admission was 1.5. Since it is such a significant drop in LVEF, coronary angiogram is recommended for further evaluation given that he has no known CAD history. When creatinine is decreased to around 1.5 would be safe to proceed with coronary angiogram, hopefully Sunday. For now we will work on good ventricular rate control with amiodarone, continue diuresis with Lasix 40 mg twice daily. He is anticoagulated with therapeutic Lovenox. Continue aspirin. PDMP PDMP Reviewed: Not Reviewed Coding Level of Care Code Acute Code for [facility] Fwd Diagnoses Systolic CHF I50.20 NSTEMI (non-ST elevated myocardial infarction) I21.4 Atrial fibrillation with rapid ventricular response I48.91 Acute kidney injury N17.9
[2025-04-17 13:07] LABS: Anion Gap 20.9 (5-19); Blood Urea Nitrogen 46 mg/dL (6-20); Calcium 8.7 mg/dL (8.5-10.5); Carbon Dioxide 17 mmol/L (22-29); Chloride 98 mmol/L (98-107); Creatinine Clr Calc Pharmacy 54.4487; Glucose 196 mg/dL (65-115); Osmolality Calculated 287 mOsm/kg (285-295); Potassium 5.9 mmol/L (3.5-5.1); Sodium 130 mmol/L (136-145)
--- NOTE | 2025-04-17 16:26 | P.PN_ITS ---
Subjective 2 Subjective: Patient was seen this morning, currently alert oriented x 3, following commands, denies any fevers, chills, cough, nausea, vomiting, chest pain Vitals/I&O/Wt Last Vital Signs Temp 98.2 F 04/16/25 14:18 Pulse 103 H 04/17/25 12:30 Resp 30 H 04/17/25 12:30 BP 104/81 04/17/25 12:30 Pulse Ox 92 04/17/25 12:30 O2 Del Method Room Air 04/16/25 17:21 04/17/25 04/17/25 04/17/25 06:59 14:59 22:59 Intake Total 624.747 / 1962.501 120 / 120 Output Total 600 / 600 Balance 24.747 / 1362.501 120 / 120 Weight last 48 hrs Weight 107.955 kg Physical Exam 2 Const: COMMON NORMALS: no acute distress and patient oriented x3 Resp: COMMON NORMALS: normal respiratory effort, No retractions and No use of accessory muscles AUSCULTATION: crackles Cardio: COMMON NORMALS: regular rate, regular rhythm, S1 normal heart sound present and S2 normal heart sound present RATE: regular rate RHYTHM: r egular rhythm HEART SOUNDS: S1 normal heart sound present and S2 normal heart sound present GI: COMMON NORMALS: Normal to inspection, nondistended, normoactive bowel sounds present and non-tender Extremity: NARRATIVE EXTREMITY EXAM: 1+ edema Neuro: COMMON NORMALS: patient oriented x3 Psych: COMMON NORMALS: mental status grossly normal Urinary Catheter Management: Wolfe: Cath Placed During This Visit: yes Reason for Continuing Indwelling Catheter: Accurate Measurement of Urinary Output in Critically Ill Patients Urinary Catheter Date of Insertion: 04/16/25 Urinary Catheter Time of Insertion: 20:56 Data 04/17/25 04:37 04/17/25 12:25 Micro: Microbiology 04/16/25 14:38 Blood Culture - Preliminary Blood NEGATIVE TO DATE 04/16/25 14:33 Blood Culture - Preliminary Blood NEGATIVE TO DATE 04/16/25 18:31 Blood Culture - Preliminary Blood SPECIMEN COLLECTED 04/16/25 18:31 Blood Culture - Preliminary Blood SPECIMEN COLLECTED A&P Assessment and plan 1. Cardiogenic shock: 2. Atrial fibrillation with rapid ventricular response: 3. Ischemic cardiomyopathy: 4. Systolic CHF: 5. Acute kidney injury: 6. NSTEMI (non-ST elevated myocardial infarction): 7. Acute hypoxic respiratory failure: Plan: Acute hypoxic respiratory failure - Multifactorial - From systolic CHF exacerbation, pulm edema, fluid overload - From A-fib with RVR -Recently had a CT angiogram of the chest was negative for PE 03/04/2025 CT/CT angio chest PE protcl [id number] IMPRESSION: 1. No pulmonary embolism. 2. Marked enlargement of the LEFT heart including the ventricle and LEFT atrium. 3. Diffuse hazy attenuation throughout both lungs. Likely this is interstitial edema. Pneumonitis may appear similar. 4. Mediastinal and hilar mildly enlarged lymph nodes. Reactive lymphadenopathy suspected. 5. Prior gastric bypass. Plan - Monitor respiratory status closely - ABG - Amiodarone drip with amiodarone bolus, de-escalate to p.o. amiodarone - Therapeutic Lovenox - Lasix 40 IV twice daily, with albumin twice daily, metolazone - Levophed, maintain MAP in the 75 - DuoNeb as needed - BiPAP as needed - DNR, does not want CPR, does not want cardioversion, okay to with drugs per ACLS - Okay with elective intubation if required Systolic CHF 03/2025 CONCLUSIONS Severe diffuse hypokinesis of the left ventricular ejection fraction of around 16%. Moderately dilated LV cavity. Mildly increased right ventricular size. Mildly decreased right ventricular systolic function. Mildly increased right atrial size. Moderately increased left atrial size. Thickened mitral valve. Mild-moderate mitral valve regurgitation. Thickened aortic valve. Trace tricuspid valve regurgitation. Trace pulmonary valve regurgitation. Compared to the study from 01/04/2022, there is a significant drop in the left ventricular ejection fraction from 55 - 60% to 16% Patient was found to be tachycardic(atrial fibrillation with rapid ventricular rate) during the study. The ejection fraction estimation could be misleading because of the tachycardia - Cardiology consulted NSTEMI -Currently EKG no acute ST-T wave changes, no chest pain - Type I versus type II -Serial EKGs, serial troponins, telemetry monitoring - Aspirin, statin - Repeat cardiac echo, pending - Therapeutic Lovenox Acute kidney injury - Recent history of CT angiogram of chest, possible: Contrast-induced nephropathy - Concerns for cardiorenal syndrome Atrial fibrillation with rapid ventricular response - Amiodarone drip - Therapeutic Lovenox Cardiogenic shock - Multifactorial from systolic CHF, concern for ischemic cardiomyopathy, NSTEMI - Start Levophed - Can consider dobutamine however high risk of tachyarrhythmia with patient's current A-fib with RVR Type 2 diabetes mellitus, low-dose sliding scale Lovenox for DVT prophylaxis DNR, okay with elective intubation if required Prognosis is guarded, status is stable Patient requires hospitalization for NSTEMI, DALE, atrial fibrillation, systolic CHF PDMP PDMP Reviewed: Not Reviewed Attestations 2 Medical Necessity Statement*: Patient requires hospitalization for atrial fibrillation, NSTEMI, DALE, systolic CHF, concern for ischemic cardiomyopathy and High MDM includes number and complexity of problems actively addressed during encounter, amount and/or complexity of data reviewed/ordered and described risk of complication, morbidity or mortality of management as documented Diagnoses Cardiogenic shock R57.0 Atrial fibrillation with rapid ventricular response I48.91 Ischemic cardiomyopathy I25.5 Systolic CHF I50.20 Acute kidney injury N17.9 NSTEMI (non-ST elevated myocardial infarction) I21.4 Acute hypoxic respiratory failure J96.01
[2025-04-17] MEDS: pantoprazole 40 mg SDV IVP (17:48)
[2025-04-17 17:53] LABS: Anion Gap 21.2 (5-19); Blood Urea Nitrogen 46 mg/dL (6-20); Calcium 8.8 mg/dL (8.5-10.5); Carbon Dioxide 19 mmol/L (22-29); Chloride 98 mmol/L (98-107); Creatinine Clr Calc Pharmacy 54.4487; Glucose 133 mg/dL (65-115); Osmolality Calculated 290 mOsm/kg (285-295); Potassium 5.2 mmol/L (3.5-5.1); Sodium 133 mmol/L (136-145)
[2025-04-17 23:17] LABS: Anion Gap 24.0 (5-19); Blood Urea Nitrogen 49 mg/dL (6-20); Calcium 9.1 mg/dL (8.5-10.5); Carbon Dioxide 17 mmol/L (22-29); Chloride 96 mmol/L (98-107); Creatinine Clr Calc Pharmacy 54.4487; Glucose 123 mg/dL (65-115); Osmolality Calculated 288 mOsm/kg (285-295); Potassium 5.0 mmol/L (3.5-5.1); Sodium 132 mmol/L (136-145)
[2025-04-18] VITALS (29 sets, daily range): BP systolic 89–131; BP diastolic 63–104; PULSE 26–106; RESP 14–27; TEMP 36.3–36.9; O2SAT 93–100
[2025-04-18 05:28] LABS: Hematocrit 44.3 % (37-53); Hemoglobin 14.10 g/dL (11.27-16.99); Mean Corpuscular HGB Conc 31.8 g/dL (30-55); Mean Corpuscular Hemoglobin 28.4 pg (27-33); Mean Corpuscular Volume 89.3 fl (82-101); Nucleated Red Blood Cells % 0 %; Platelet Count 327 10^3/cmm (157-399); Red Blood Count 4.96 10^6/uL (3.85-5.65); White Blood Count 9.58 10^3/uL (3.29-11.43)
[2025-04-18 05:39] LABS: INR 1.68 (0.8-1.2); Prothrombin Time 20.90 SECONDS (12.1-14.9)
[2025-04-18 05:50] LABS: Alanine Aminotransferase 237 U/L (0-41); Albumin Level 4.5 g/dL (3.5-5.2); Alkaline Phosphatase 108 U/L (40-130); Aspartate Amino Transferase 136 U/L (0-40); Blood Urea Nitrogen 51 mg/dL (6-20); Calcium 9.4 mg/dL (8.5-10.5); Carbon Dioxide 16 mmol/L (22-29); Chloride 98 mmol/L (98-107); Creatinine Clr Calc Pharmacy 57.4737; Globulin 2.6 g/dL (1.3-4.6); Glucose 115 mg/dL (65-115); Magnesium 2.2 mg/dL (1.7-2.3); Osmolality Calculated 295 mOsm/kg (285-295); Sodium 135 mmol/L (136-145); Total Protein 7.1 g/dL (6.6-8.7)
[2025-04-18 05:52] LABS: Anion Gap 26.0 (5-19); NT Pro B Type Natriuretic Pept 9407 pg/mL (0-125); Potassium 5.0 mmol/L (3.5-5.1)
[2025-04-18] MEDS: albumin 25 G/100 ML VIAL IV ×2 (06:26→17:36)
[2025-04-18] MEDS: FUROsemide 10 mg/mL SDV 4mL 40 MG IVP ×2 (06:26→16:59)
[2025-04-18] MEDS: ondansetron 2 mg/ML SDV 2 mL 4 MG IVP (06:40)
--- NOTE | 2025-04-18 11:22 | P.PN_ITS ---
Subjective 2 Subjective: Breathing better. Now able to lay down with oxygen on Vitals/I&O/Wt Last Vital Signs Temp 98.5 F 04/18/25 07:00 Pulse 79 04/18/25 10:00 Resp 17 04/18/25 10:00 BP 100/68 04/18/25 10:00 Pulse Ox 96 04/18/25 10:00 O2 Del Method Room Air 04/18/25 10:00 04/17/25 04/18/25 04/18/25 22:59 06:59 14:59 Intake Total 849.482 / 969.482 336 / 336 Output Total 900 / 900 850 / 1750 100 / 100 Balance -50.518 / 69.482 -850 / -780.518 236 / 236 Weight last 48 hrs Weight 225 lb 15.581 oz Weight 238 lb Physical Exam 2 Const: OTHER: Sitting up in chair in no distress Resp: OTHER: Lungs CTA bilaterally. No wheezes Cardio: OTHER: RRR. No murmurs Extremity: OTHER: Right AKA. Left leg 1+ edema from foot to thigh Neuro: OTHER: AxO x3 Urinary Catheter Management: Wolfe: Cath Placed During This Visit: yes, but has since been removed by the nurse Reason for Continuing Indwelling Catheter: Accurate Measurement of Urinary Output in Critically Ill Patients Urinary Catheter Date of Insertion: 04/16/25 Urinary Catheter Time of Insertion: 20:56 Date Urinary Catheter Removed: 04/17/25 Data 04/18/25 04:14 04/18/25 04:14 Micro: Microbiology 04/16/25 18:31 Blood Culture - Preliminary Blood NEGATIVE TO DATE 04/16/25 18:31 Blood Culture - Preliminary Blood NEGATIVE TO DATE 04/16/25 14:38 Blood Culture - Preliminary Blood NEGATIVE TO DATE 04/16/25 14:33 Blood Culture - Preliminary Blood NEGATIVE TO DATE Other data: Telemetry: PAF, in and out of NSR, occasional PVCs A&P Assessment and plan 1. Systolic CHF: Diuresing well with improved SOB but still quite volume overloaded Lasix 40mg IV q12h BP too low to restart GDMT at this time during active diuresis Spironolactone held due to high potassium initially No need to start Dobutamine or milrinone if BP stable and diuresing adequately 2. NSTEMI (non-ST elevated myocardial infarction): Will need [facility] filippo next week. Possibly Sunday if Cr stays stable Continue ASA and Lovenox Statin intolerant On Repatha as outpatient 3. Atrial fibrillation with rapid ventricular response: Having intermittent afib - rate controlled. Continue amio On Lovenox 4. Acute kidney injury: Cr Stable PDMP PDMP Reviewed: Not Reviewed Attestations 2 Medical Necessity Statement*: needs atleast 48 hours more hospitalization for acute CHF and NSTEMI treatment Coding Level of Care Code 28674 Diagnoses Systolic CHF I50.20 NSTEMI (non-ST elevated myocardial infarction) I21.4 Atrial fibrillation with rapid ventricular response I48.91 Acute kidney injury N17.9
--- NOTE | 2025-04-18 11:39 | ECG_ITS ---
[employer] [facility] Test Date: 2025-04-18 Pat Name: Harman Swanson Department: Room: [facility] Gender: Male [employer]: : 1965 Requested By: Shilo Mcneal Order Number: [id number] Gena MD: Shilo Mcneal M.D. Measurements Intervals Ajo Rate: 84 P: 16 MO: 232 QRS: 9 QRSD: 120 T: 84 QT: 360 QTc: 426 Interpretive Statements SINUS RHYTHM WITH FIRST DEGREE AV BLOCK NONSPECIFIC INTRAVENTRICULAR CONDUCTION DELAY Compared to ECG 04/16/2025 20:21:55 First degree AV block now present Atrial fibrillation no longer present Electronically Signed On 04-18-2025 14:20:22 CDT by Fredis [email or web address]
--- NOTE | 2025-04-18 12:43 | CTR_ITS ---
PROCEDURE INFORMATION: Exam: CT Abdomen And Pelvis Without Contrast Exam date and time: 04/18/2025 2:25 PM Age: 59 years old Clinical indication: Nausea and vomiting; Abdominal pain; Prior surgery; Surgery date: 6+ months; Surgery type: Lap band; Additional info: N/v/abdominal pain TECHNIQUE: Imaging protocol: Computed tomography of the abdomen and pelvis without contrast. Radiation optimization: All CT scans at this facility use at least one of these dose optimization techniques: automated exposure control; mA and/or kV adjustment per patient size (includes targeted exams where dose is matched to clinical indication); or iterative reconstruction. COMPARISON: US abdomen complete* [id number] 04/18/2025 7:20 AM RADIATION DOSE METRICS: Total DLP (mGy-cm): 1177.93 FINDINGS: Tubes, catheters and devices: Lap band device is present surrounding the upper stomach. Lungs: Visualized portions of the lungs are clear. No effusions. Pleural spaces: Bilateral pleural effusions are present. Coronary arteries: Coronary artery calcifications are noted. Liver: Unremarkable. No mass. Gallbladder and biliary ducts: Gallstones are noted. Pancreas: Normal. No ductal dilation. Spleen: Normal. No splenomegaly. Adrenal glands: Normal. No mass. Kidneys and ureters: Normal. No hydronephrosis. Stomach and bowel: Unremarkable. No obstruction. No mucosal thickening. Appendix: The appendix is not visualized. Intraperitoneal space: Ascites is present. Vasculature: Unremarkable. No abdominal aortic aneurysm. Lymph nodes: Unremarkable. No enlarged lymph nodes. Urinary bladder: Unremarkable as visualized. Reproductive: Unremarkable as visualized. Bones/joints: Unremarkable. No acute fracture. Soft tissues: There is anasarca in the soft tissues. CT/CT abdomen pelvis wo con [id number] IMPRESSION: 1. Ascites and bilateral pleural effusions. Anasarca. 2. Cholelithiasis 3. Status post appendectomy. 4. Status post lap band 5. Significant coronary artery calcifications.
--- NOTE | 2025-04-18 12:44 | P.PN_ITS ---
Subjective 2 Subjective: Patient was seen this morning, currently alert oriented x 3, follow all commands, shortness of breath improving is able to lie flat, edema improving he did have an episode of nausea, vomiting, nonspecific abdominal pain, no fevers, no chills Vitals/I&O/Wt Last Vital Signs Temp 98.5 F 04/18/25 07:00 Pulse 82 04/18/25 12:00 Resp 22 H 04/18/25 12:00 BP 100/68 04/18/25 11:00 Pulse Ox 96 04/18/25 12:00 O2 Del Method Room Air 04/18/25 12:00 04/17/25 04/18/25 04/18/25 22:59 06:59 14:59 Intake Total 849.482 / 969.482 572 / 572 Output Total 900 / 900 850 / 1750 600 / 600 Balance -50.518 / 69.482 -850 / -780.518 -28 / -28 Weight last 48 hrs Weight 102.5 kg Weight 107.955 kg Physical Exam 2 Const: COMMON NORMALS: no acute distress and patient oriented x3 Resp: COMMON NORMALS: normal respiratory effort, No retractions and No use of accessory muscles AUSCULTATION: wheezes Cardio: COMMON NORMALS: regular rate, regular rhythm, S1 normal heart sound present and S2 normal heart sound present RATE: regular rate RHYTHM: r egular rhythm HEART SOUNDS: S1 normal heart sound present and S2 normal heart sound present GI: OTHER: Abdomen soft, slightly distended, good bowel sounds, no guarding, no rebound, rigidity, has epigastric discomfort Extremity: NARRATIVE EXTREMITY EXAM: 1+ pitting edema Neuro: COMMON NORMALS: patient oriented x3 Psych: COMMON NORMALS: mental status grossly normal Urinary Catheter Management: Wolfe: Cath Placed During This Visit: yes, but has since been removed by the nurse Reason for Continuing Indwelling Catheter: Accurate Measurement of Urinary Output in Critically Ill Patients Urinary Catheter Date of Insertion: 04/16/25 Urinary Catheter Time of Insertion: 20:56 Date Urinary Catheter Removed: 04/17/25 Data 04/18/25 04:14 04/18/25 04:14 Micro: Microbiology 04/16/25 18:31 Blood Culture - Preliminary Blood NEGATIVE TO DATE 04/16/25 18:31 Blood Culture - Preliminary Blood NEGATIVE TO DATE 04/16/25 14:38 Blood Culture - Preliminary Blood NEGATIVE TO DATE 04/16/25 14:33 Blood Culture - Preliminary Blood NEGATIVE TO DATE A&P Assessment and plan 1. Cardiogenic shock: 2. Atrial fibrillation with rapid ventricular response: 3. Ischemic cardiomyopathy: 4. Systolic CHF: 5. Acute kidney injury: 6. NSTEMI (non-ST elevated myocardial infarction): 7. Acute hypoxic respiratory failure: Plan: Acute hypoxic respiratory failure - Multifactorial - From systolic CHF exacerbation, pulm edema, fluid overload - From A-fib with RVR -Recently had a CT angiogram of the chest was negative for PE 03/04/2025 CT/CT angio chest PE protcl [id number] IMPRESSION: 1. No pulmonary embolism. 2. Marked enlargement of the LEFT heart including the ventricle and LEFT atrium. 3. Diffuse hazy attenuation throughout both lungs. Likely this is interstitial edema. Pneumonitis may appear similar. 4. Mediastinal and hilar mildly enlarged lymph nodes. Reactive lymphadenopathy suspected. 5. Prior gastric bypass. Plan - Monitor respiratory status closely - ABG - Amiodarone drip with amiodarone bolus, de-escalate to p.o. amiodarone - Therapeutic Lovenox - Lasix 40 IV twice daily, with albumin twice daily, metolazone - Levophed, maintain MAP in the 75 - DuoNeb as needed - BiPAP as needed - DNR, does not want CPR, does not want cardioversion, okay to with drugs per ACLS - Okay with elective intubation if required Systolic CHF 03/2025 CONCLUSIONS Severe diffuse hypokinesis of the left ventricular ejection fraction of around 16%. Moderately dilated LV cavity. Mildly increased right ventricular size. Mildly decreased right ventricular systolic function. Mildly increased right atrial size. Moderately increased left atrial size. Thickened mitral valve. Mild-moderate mitral valve regurgitation. Thickened aortic valve. Trace tricuspid valve regurgitation. Trace pulmonary valve regurgitation. Compared to the study from 01/04/2022, there is a significant drop in the left ventricular ejection fraction from 55 - 60% to 16% Patient was found to be tachycardic(atrial fibrillation with rapid ventricular rate) during the study. The ejection fraction estimation could be misleading because of the tachycardia - Cardiology consulted NSTEMI -Currently EKG no acute ST-T wave changes, no chest pain - Type I versus type II -Serial EKGs, serial troponins, telemetry monitoring - Aspirin, statin - Repeat cardiac echo, pending - Therapeutic Lovenox Acute kidney injury - Recent history of CT angiogram of chest, possible: Contrast-induced nephropathy - Concerns for cardiorenal syndrome Atrial fibrillation with rapid ventricular response - Amiodarone drip, p.o. amiodarone - Therapeutic Lovenox Cardiogenic shock - Multifactorial from systolic CHF, concern for ischemic cardiomyopathy, NSTEMI - Start Levophed - Can consider dobutamine however high risk of tachyarrhythmia with patient's current A-fib with RVR Type 2 diabetes mellitus, low-dose sliding scale Abdominal pain, ultrasound abdomen, LFTs Lovenox for DVT prophylaxis DNR, okay with elective intubation if required Prognosis is guarded, status is stable Plan for today monitor diuresis monitor creatinine repeat CBC and CMP this afternoon PDMP PDMP Reviewed: Not Reviewed Attestations 2 Medical Necessity Statement*: Patient requires hospitalization for acute hypoxic respiratory failure, systolic CHF NSTEMI, DALE, A-fib, abdominal pain, cardiogenic shock Diagnoses Cardiogenic shock R57.0 Atrial fibrillation with rapid ventricular response I48.91 Ischemic cardiomyopathy I25.5 Systolic CHF I50.20 Acute kidney injury N17.9 NSTEMI (non-ST elevated myocardial infarction) I21.4 Acute hypoxic respiratory failure J96.01
[2025-04-18] MEDS: metroNIDAZOLE IV 500 MG/100 ML PREMIX 100 MG IV ×2 (13:11→22:04)
[2025-04-18 13:15] LABS: Hematocrit 42.2 % (37-53); Hemoglobin 13.80 g/dL (11.27-16.99); Mean Corpuscular HGB Conc 32.7 g/dL (30-55); Mean Corpuscular Hemoglobin 29.4 pg (27-33); Mean Corpuscular Volume 90.0 fl (82-101); Nucleated Red Blood Cells % 0 %; Platelet Count 290 10^3/cmm (157-399); Red Blood Count 4.69 10^6/uL (3.85-5.65); White Blood Count 9.13 10^3/uL (3.29-11.43)
[2025-04-18 13:38] LABS: Alanine Aminotransferase 197 U/L (0-41); Albumin Level 4.2 g/dL (3.5-5.2); Alkaline Phosphatase 89 U/L (40-130); Aspartate Amino Transferase 84 U/L (0-40); Blood Urea Nitrogen 50 mg/dL (6-20); Calcium 9.1 mg/dL (8.5-10.5); Carbon Dioxide 21 mmol/L (22-29); Chloride 99 mmol/L (98-107); Globulin 2.8 g/dL (1.3-4.6); Glucose 113 mg/dL (65-115); Lipase 38 U/L (13-60); Osmolality Calculated 298 mOsm/kg (285-295); Sodium 137 mmol/L (136-145); Total Protein 7.0 g/dL (6.6-8.7)
[2025-04-18 13:40] LABS: Anion Gap 21.3 (5-19); Creatinine Clr Calc Pharmacy 53.1249; Potassium 4.3 mmol/L (3.5-5.1)
[2025-04-18 13:42] LABS: Procalcitonin 0.16 ng/mL (0-0.5)
[2025-04-18] MEDS: iohexol 350 mg/mL 500 mL Btl (per mL) PO (14:28)
--- NOTE | 2025-04-18 16:30 | USR_ITS ---
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 Will scan in am. CR TECHNIQUE: Imaging protocol: Real-time ultrasound of the abdomen with image documentation. Complete exam. COMPARISON: US renal BI* [id number] 04/16/2025 7:39 PM FINDINGS: Limitations: Technically difficult exam due to patient's body habitus. Liver: Measures 17.3 cm in length. Indeterminate echogenic tissue at the liver margin where it abuts the right kidney. Gallbladder: Wall thickening measuring up to 8 mm in thickness. Visible gallstones. Sonographic Dimas's sign not reported. Biliary ducts: Nondilated. Common duct measures 0.5 cm at the gail hepatis. Pancreas: Obscured. Right kidney: Measures 10.9 cm in length. Cortical thickness and echogenicity within normal limits. No hydronephrosis. Left kidney: Measures 8.0 cm in length. Mild cortical thinning and increased echogenicity. No hydronephrosis. Spleen: Unremarkable. Intraperitoneal space: Ascites. Aorta: Unremarkable as imaged. Inferior vena cava: Unremarkable as imaged. US/US abdomen complete* [id number] IMPRESSION: 1. Technically difficult exam. 2. Cholelithiasis with gallbladder wall thickening raising concern for acute cholecystitis. Recommend clinical correlation. 3. Mild hepatomegaly. Indeterminate echogenic tissue at the liver margin where it impression abuts the right kidney. Recommend liver protocol MRI for further characterization. 4. Mildly atrophic left kidney with mild cortical thinning and increased cortical echogenicity, suggestive of chronic medical renal disease. No hydronephrosis bilaterally.
[2025-04-18] MEDS: pantoprazole 40 mg SDV IVP (16:58)
[2025-04-19] VITALS (28 sets, daily range): BP systolic 95–131; BP diastolic 56–92; PULSE 73–84; RESP 13–32; TEMP 35.9–37.1; O2SAT 91–99
[2025-04-19] MEDS: FUROsemide 10 mg/mL SDV 4mL 40 MG IVP ×2 (05:29→17:20)
[2025-04-19] MEDS: albumin 25 G/100 ML VIAL IV ×2 (05:30→17:20)
[2025-04-19] MEDS: metroNIDAZOLE IV 500 MG/100 ML PREMIX 100 MG IV ×3 (05:30→20:45)
[2025-04-19 05:55] LABS: Hematocrit 37.6 % (37-53); Hemoglobin 12.20 g/dL (11.27-16.99); Mean Corpuscular HGB Conc 32.4 g/dL (30-55); Mean Corpuscular Hemoglobin 28.5 pg (27-33); Mean Corpuscular Volume 87.9 fl (82-101); Nucleated Red Blood Cells % 0 %; Platelet Count 283 10^3/cmm (157-399); Red Blood Count 4.28 10^6/uL (3.85-5.65); White Blood Count 7.29 10^3/uL (3.29-11.43)
[2025-04-19 06:01] LABS: INR 1.57 (0.8-1.2); Prothrombin Time 19.80 SECONDS (12.1-14.9)
[2025-04-19 06:10] LABS: Alanine Aminotransferase 144 U/L (0-41); Albumin Level 4.1 g/dL (3.5-5.2); Alkaline Phosphatase 79 U/L (40-130); Anion Gap 19.9 (5-19); Aspartate Amino Transferase 47 U/L (0-40); Blood Urea Nitrogen 51 mg/dL (6-20); Calcium 9.1 mg/dL (8.5-10.5); Carbon Dioxide 22 mmol/L (22-29); Chloride 97 mmol/L (98-107); Creatinine Clr Calc Pharmacy 53.1249; Globulin 2.7 g/dL (1.3-4.6); Glucose 148 mg/dL (65-115); Magnesium 2.0 mg/dL (1.7-2.3); Osmolality Calculated 296 mOsm/kg (285-295); Potassium 3.9 mmol/L (3.5-5.1); Sodium 135 mmol/L (136-145); Total Protein 6.8 g/dL (6.6-8.7)
--- NOTE | 2025-04-19 10:12 | P.PN_ITS ---
Subjective 2 Subjective: Patient was seen this morning, currently alert oriented x 3, following commands, denies any fevers, chills, cough no nausea, no vomiting, no abdominal pain, has some shortness of breath this morning Vitals/I&O/Wt Last Vital Signs Temp 98.7 F 04/19/25 09:34 Pulse 75 04/19/25 08:00 Resp 17 04/19/25 08:00 BP 110/79 04/19/25 08:00 Pulse Ox 96 04/19/25 09:36 O2 Del Method Room Air 04/19/25 09:36 04/18/25 04/19/25 04/19/25 22:59 06:59 14:59 Intake Total 500 / 1372 400 / 1772 218 / 218 Output Total 1300 / 1900 1250 / 3150 1300 / 1300 Balance -800 / -528 -850 / -1378 -1082 / -1082 Weight last 48 hrs Weight 99 kg Weight 102.5 kg Physical Exam 2 Const: COMMON NORMALS: no acute distress and patient oriented x3 Resp: COMMON NORMALS: normal respiratory effort, No retractions and No use of accessory muscles AUSCULTATION: crackles and wheezes Cardio: COMMON NORMALS: regular rate, regular rhythm, S1 normal heart sound present and S2 normal heart sound present RATE: regular rate RHYTHM: r egular rhythm HEART SOUNDS: S1 normal heart sound present and S2 normal heart sound present GI: COMMON NORMALS: Normal to inspection, nondistended, normoactive bowel sounds present and non-tender Extremity: COMMON NORMALS: no calf tenderness and no pedal edema Neuro: COMMON NORMALS: patient oriented x3, CN's II-XII intact bilaterally and moves all extremities Psych: COMMON NORMALS: mental status grossly normal Urinary Catheter Management: Wolfe: Cath Placed During This Visit: yes, but has since been removed by the nurse Reason for Continuing Indwelling Catheter: Accurate Measurement of Urinary Output in Critically Ill Patients Urinary Catheter Date of Insertion: 04/16/25 Urinary Catheter Time of Insertion: 20:56 Date Urinary Catheter Removed: 04/17/25 Data 04/19/25 04:45 04/19/25 04:45 A&P Assessment and plan 1. Cardiogenic shock: 2. Atrial fibrillation with rapid ventricular response: 3. Ischemic cardiomyopathy: 4. Systolic CHF: 5. Acute kidney injury: 6. NSTEMI (non-ST elevated myocardial infarction): 7. Acute hypoxic respiratory failure: Plan: Acute hypoxic respiratory failure - Multifactorial - From systolic CHF exacerbation, pulm edema, fluid overload - From A-fib with RVR -Recently had a CT angiogram of the chest was negative for PE 03/04/2025 CT/CT angio chest PE protcl [id number] IMPRESSION: 1. No pulmonary embolism. 2. Marked enlargement of the LEFT heart including the ventricle and LEFT atrium. 3. Diffuse hazy attenuation throughout both lungs. Likely this is interstitial edema. Pneumonitis may appear similar. 4. Mediastinal and hilar mildly enlarged lymph nodes. Reactive lymphadenopathy suspected. 5. Prior gastric bypass. Plan - Monitor respiratory status closely - ABG - Amiodarone drip with amiodarone bolus, de-escalated to p.o. amiodarone - Therapeutic Lovenox - Lasix 40 IV twice daily, with albumin twice daily, metolazone - Levophed, maintain MAP in the 75 - DuoNeb as needed - BiPAP as needed - DNR, does not want CPR, does not want cardioversion, okay to with drugs per ACLS - Okay with elective intubation if required Systolic CHF 03/2025 CONCLUSIONS Severe diffuse hypokinesis of the left ventricular ejection fraction of around 16%. Moderately dilated LV cavity. Mildly increased right ventricular size. Mildly decreased right ventricular systolic function. Mildly increased right atrial size. Moderately increased left atrial size. Thickened mitral valve. Mild-moderate mitral valve regurgitation. Thickened aortic valve. Trace tricuspid valve regurgitation. Trace pulmonary valve regurgitation. Compared to the study from 01/04/2022, there is a significant drop in the left ventricular ejection fraction from 55 - 60% to 16% Patient was found to be tachycardic(atrial fibrillation with rapid ventricular rate) during the study. The ejection fraction estimation could be misleading because of the tachycardia - Cardiology consulted NSTEMI -Currently EKG no acute ST-T wave changes, no chest pain - Type I versus type II -Serial EKGs, serial troponins, telemetry monitoring - Aspirin, statin - Repeat cardiac echo, pending - Therapeutic Lovenox Acute kidney injury - Recent history of CT angiogram of chest, possible: Contrast-induced nephropathy - Concerns for cardiorenal syndrome Atrial fibrillation with rapid ventricular response - Amiodarone drip, p.o. amiodarone - Therapeutic Lovenox Cardiogenic shock - Multifactorial from systolic CHF, concern for ischemic cardiomyopathy, NSTEMI - Start Levophed - Can consider dobutamine however high risk of tachyarrhythmia with patient's current A-fib with RVR Acute cholecystitis? US/US abdomen complete* [id number] IMPRESSION: 1. Technically difficult exam. 2. Cholelithiasis with gallbladder wall thickening raising concern for acute cholecystitis. Recommend clinical correlation. 3. Mild hepatomegaly. Indeterminate echogenic tissue at the liver margin where it impression abuts the right kidney. Recommend liver protocol MRI for further characterization. 4. Mildly atrophic left kidney with mild cortical thinning and increased cortical echogenicity, suggestive of chronic medical renal disease. No hydronephrosis bilaterally. CT scan abdomen pelvis CT/CT abdomen pelvis wo con [id number] IMPRESSION: 1. Ascites and bilateral pleural effusions. Anasarca. 2. Cholelithiasis 3. Status post appendectomy. 4. Status post lap band 5. Significant coronary artery calcifications. -AST 147, ALT 144, GGT 52, lipase 38, alk phos 79 -Acute cholecystitis with cholelithiasis versus congestive hepatopathy from severe cardiomyopathy -Clinically no right upper quadrant abdominal pain per se, no nausea, no vomiting Plan -Continue ciprofloxacin, continue Flagyl -Continue serial abdominal exams -Monitor LFTs Type 2 diabetes mellitus, low-dose sliding scale Abdominal pain, ultrasound abdomen, LFTs Lovenox for DVT prophylaxis DNR, okay with elective intubation if required Prognosis is guarded, status is stable Plan for today continue IV antibiotics, continue IV diuresis, PDMP PDMP Reviewed: Not Reviewed Attestations 2 Medical Necessity Statement*: Patient requires hospitalization for fluid overload, CHF, acute cholecystitis, Diagnoses Cardiogenic shock R57.0 Atrial fibrillation with rapid ventricular response I48.91 Ischemic cardiomyopathy I25.5 Systolic CHF I50.20 Acute kidney injury N17.9 NSTEMI (non-ST elevated myocardial infarction) I21.4 Acute hypoxic respiratory failure J96.01
--- NOTE | 2025-04-19 11:52 | P.PN_ITS ---
Subjective 2 Subjective: Still with some SOB with movement but improving Vitals/I&O/Wt Last Vital Signs Temp 98.7 F 04/19/25 09:34 Pulse 80 04/19/25 11:00 Resp 14 04/19/25 11:00 BP 97/58 04/19/25 11:00 Pulse Ox 94 04/19/25 11:00 O2 Del Method Room Air 04/19/25 11:00 04/18/25 04/19/25 04/19/25 22:59 06:59 14:59 Intake Total 500 / 1372 400 / 1772 218 / 218 Output Total 1300 / 1900 1250 / 3150 1300 / 1300 Balance -800 / -528 -850 / -1378 -1082 / -1082 Weight last 48 hrs Weight 218 lb 4.122 oz Weight 225 lb 15.581 oz Physical Exam 2 Const: COMMON NORMALS: no acute distress and patient oriented x3 Neck/C-Spine: COMMON NORMALS: supple Resp: COMMON NORMALS: clear to auscultation bilaterally AUSCULTATION: clear to auscultation bilaterally Cardio: COMMON NORMALS: regular rate and regular rhythm RATE: regular rate RHYTHM: regular rhythm Extremity: NARRATIVE EXTREMITY EXAM: improved edema in the left thigh. 1+ edema in left foot and ankle Neuro: COMMON NORMALS: patient oriented x3 Urinary Catheter Management: Wolfe: Cath Placed During This Visit: yes, but has since been removed by the nurse Reason for Continuing Indwelling Catheter: Accurate Measurement of Urinary Output in Critically Ill Patients Urinary Catheter Date of Insertion: 04/16/25 Urinary Catheter Time of Insertion: 20:56 Date Urinary Catheter Removed: 04/17/25 Data 04/19/25 04:45 04/19/25 04:45 A&P Assessment and plan 1. NSTEMI (non-ST elevated myocardial infarction): Denies any recurrent chest pain Will need LHC early this week if Cr remains stable with diuresis Continue aspirin and Lovenox 2. Atrial fibrillation with rapid ventricular response: Remain in NSR last 12 hours Continue amio loading and Lovenox No BB yet with intermittent low BP and DALE 3. CAD (coronary artery disease): Significant coronary calcification on CT scan Non-STEMI by troponin on admission No statin yet due to elevated LFTs Continue aspirin 4. Systolic CHF: New severely reduced EF?10 to 15% Unclear if due to recent A-fib with RVR versus CAD Diuresing well Continue current Lasix and metolazone regimen Holding off on resuming GDMT during diuresis since blood pressure running on low side and patient with DALE Hold off on dobutamine due to recent A-fib with RVR PDMP PDMP Reviewed: Not Reviewed Attestations 2 Medical Necessity Statement*: Will require more than 2 midnights more in the hospital for treatment of systolic heart failure and non-STEMI Coding Level of Care Code Acute Code for [facility] Diagnoses NSTEMI (non-ST elevated myocardial infarction) I21.4 Atrial fibrillation with rapid ventricular response I48.91 CAD (coronary artery disease) I25.10 Systolic CHF I50.20
[2025-04-19] MEDS: ondansetron 2 mg/ML SDV 2 mL 4 MG IVP ×2 (13:28→22:59)
[2025-04-19] MEDS: metoclopramide 5 mg/mL SDV 2 mL IVP (17:17)
[2025-04-19] MEDS: pantoprazole 40 mg SDV IVP (17:20)
[2025-04-20] VITALS (29 sets, daily range): BP systolic 96–136; BP diastolic 50–94; PULSE 67–91; RESP 14–26; TEMP 36.6–36.8; O2SAT 90–100
[2025-04-20 03:55] LABS: Hematocrit 37.7 % (37-53); Hemoglobin 12.50 g/dL (11.27-16.99); Mean Corpuscular HGB Conc 33.2 g/dL (30-55); Mean Corpuscular Hemoglobin 28.6 pg (27-33); Mean Corpuscular Volume 86.3 fl (82-101); Nucleated Red Blood Cells % 0 %; Platelet Count 266 10^3/cmm (157-399); Red Blood Count 4.37 10^6/uL (3.85-5.65); White Blood Count 7.75 10^3/uL (3.29-11.43)
[2025-04-20 04:18] LABS: Alanine Aminotransferase 116 U/L (0-41); Albumin Level 4.5 g/dL (3.5-5.2); Alkaline Phosphatase 75 U/L (40-130); Blood Urea Nitrogen 48 mg/dL (6-20); Calcium 9.6 mg/dL (8.5-10.5); Carbon Dioxide 27 mmol/L (22-29); Chloride 95 mmol/L (98-107); Creatinine Clr Calc Pharmacy 58.4255; Globulin 2.9 g/dL (1.3-4.6); Glucose 128 mg/dL (65-115); Magnesium 1.9 mg/dL (1.7-2.3); Osmolality Calculated 298 mOsm/kg (285-295); Sodium 137 mmol/L (136-145); Total Protein 7.4 g/dL (6.6-8.7)
[2025-04-20 04:29] LABS: Anion Gap 18.8 (5-19); Potassium 3.8 mmol/L (3.5-5.1)
[2025-04-20 04:30] LABS: Aspartate Amino Transferase 37 U/L (0-40)
[2025-04-20] MEDS: FUROsemide 10 mg/mL SDV 4mL 40 MG IVP ×2 (05:38→17:41)
[2025-04-20] MEDS: metroNIDAZOLE IV 500 MG/100 ML PREMIX 100 MG IV ×3 (05:38→21:37)
[2025-04-20 07:13] LABS: NT Pro B Type Natriuretic Pept 7192 pg/mL (0-125)
--- NOTE | 2025-04-20 07:33 | PC.NURSE ---
Dr. Barr ordered to hold lovenox for the patient and to keep NPO just incase of angiogram being done.
[2025-04-20] MEDS: albumin 25 G/100 ML BAG 60 G IV ×2 (08:38→21:38)
--- NOTE | 2025-04-20 11:15 | PC.SOCIAL ---
IMM Update pg 2 of IMM Updated and reviewed w/ patient. Copy provided and copy dated, initialed and placed in chart.
--- NOTE | 2025-04-20 12:17 | P.PN_ITS ---
<Statement entered by Isaiah Barr M.D - 04/21/25 10:41> Patient was cared for in conjunction with an advanced practice practitioner.? I reviewed the chart and all pertinent data including imaging, telemetry, and laboratory results.? I discussed the patient in detail with the advanced practice practitioner.? Please see?their note for progress note, testing results and agreed upon plan of care for the patient. Subjective 2 Subjective: No events noted overnight. He has diuresed well, -4 L for the last 24 hours, creatinine 1.7. Will plan for coronary angiogram tomorrow morning at 0830. Vitals/I&O/Wt Last Vital Signs Temp 97.8 F 04/20/25 09:00 Pulse 89 04/20/25 09:00 Resp 18 04/20/25 07:00 BP 125/86 04/20/25 10:00 Pulse Ox 100 04/20/25 09:00 O2 Del Method Room Air 04/20/25 09:00 04/19/25 04/20/25 04/20/25 22:59 06:59 14:59 Intake Total 336 / 1598 522 / 1598 100 / 100 Output Total 1500 / 5925 2625 / 5925 1000 / 1000 Balance -1164 / -4327 -2103 / -4327 -900 / -900 Weight last 48 hrs Weight 214 lb 15.211 oz Weight 218 lb 4.122 oz Physical Exam 2 Const: COMMON NORMALS: no acute distress and patient oriented x3 GENERAL APPEARANCE: cooperative and comfortable ORIENTATION/CONSCIOUSNESS: Yes awake, Yes oriented to person, Yes oriented to place and Yes oriented to time Chest: COMMONS NORMALS: normal inspection of the chest and normal palpation of entire chest wall CHEST: Yes Symmetrical chest wall rise Resp: COMMON NORMALS: normal respiratory effort, No retractions, No use of accessory muscles and clear to auscultation bilaterally EFFORT & INSPECTION: Yes symmetric chest movement AUSCULTATION: clear to auscultation bilaterally Cardio: COMMON NORMALS: regular rate, regular rhythm, S1 normal heart sound present, S2 normal heart sound present, No gallops present (Cardio), No clicks present (Cardio), No murmurs present (Cardio) and No rub (Cardio) RATE: r egular rate RHYTHM: regular rhythm HEART SOUNDS: S1 normal heart sound present and S2 normal heart sound present PERIPHERAL PULSES: radial pulses present Extremity: GENERAL: Yes edema (trace pitting edema left leg below knee) Neuro: COMMON NORMALS: patient oriented x3 and moves all extremities S ENSORIUM/ORIENTATION: Yes oriented to person, Yes oriented to place and Yes oriented to time Urinary Catheter Management: Wolfe: Cath Placed During This Visit: yes, but has since been removed by the nurse Reason for Continuing Indwelling Catheter: Accurate Measurement of Urinary Output in Critically Ill Patients Urinary Catheter Date of Insertion: 04/16/25 Urinary Catheter Time of Insertion: 20:56 Date Urinary Catheter Removed: 04/17/25 Data 04/20/25 03:45 04/20/25 03:45 A&P Assessment and plan 1. NSTEMI (non-ST elevated myocardial infarction): 2. Systolic CHF: 3. Ischemic cardiomyopathy: 4. Atrial fibrillation with rapid ventricular response: 5. Acute renal insufficiency: Plan: No chest pain or worsening shortness of breath, plan for coronary angiogram tomorrow to evaluate new onset systolic CHF and atrial fibrillation. He feels he can lay down flat without respiratory distress. Will hold Lovenox dose in the morning. N.p.o. after midnight tonight, he can eat today. PDMP PDMP Reviewed: Not Reviewed Attestations 2 Medical Necessity Statement*: Ischemic workup Coding Level of Care Code Acute Code for [facility] Diagnoses NSTEMI (non-ST elevated myocardial infarction) I21.4 Systolic CHF I50.20 Ischemic cardiomyopathy I25.5 Atrial fibrillation with rapid ventricular response I48.91 Acute renal insufficiency N28.9
--- NOTE | 2025-04-20 14:06 | P.PN_ITS ---
Subjective 2 Subjective: Seen this morning. Denies chest pain shortness of breath. Vitals/I&O/Wt Last Vital Signs Temp 97.8 F 04/20/25 09:00 Pulse 78 04/20/25 12:00 Resp 16 04/20/25 12:00 BP 103/58 04/20/25 12:00 Pulse Ox 98 04/20/25 12:00 O2 Del Method Room Air 04/20/25 12:00 04/19/25 04/20/25 04/20/25 22:59 06:59 14:59 Intake Total 336 / 1076 522 / 1598 200 / 200 Output Total 1500 / 3300 2625 / 5925 1850 / 1850 Balance -1164 / -2224 -2103 / -4327 -1650 / -1650 Weight last 48 hrs Weight 97.5 kg Weight 99 kg Physical Exam 2 Const: COMMON NORMALS: no acute distress and patient oriented x3 Resp: COMMON NORMALS: normal respiratory effort, No retractions, No use of accessory muscles and clear to auscultation bilaterally (Very mild crackles at bases.) AUSCULTATION: clear to auscultation bilaterally (Very mild crackles at bases.) Cardio: COMMON NORMALS: regular rate, regular rhythm, S1 normal heart sound present and S2 normal heart sound present RATE: regular rate RHYTHM: r egular rhythm HEART SOUNDS: S1 normal heart sound present and S2 normal heart sound present GI: COMMON NORMALS: Normal to inspection, nondistended, normoactive bowel sounds present and non-tender Extremity: COMMON NORMALS: no calf tenderness and no pedal edema Neuro: COMMON NORMALS: patient oriented x3, CN's II-XII intact bilaterally and moves all extremities Psych: COMMON NORMALS: mental status grossly normal Urinary Catheter Management: Wolef: Cath Placed During This Visit: yes, but has since been removed by the nurse Reason for Continuing Indwelling Catheter: Accurate Measurement of Urinary Output in Critically Ill Patients Urinary Catheter Date of Insertion: 04/16/25 Urinary Catheter Time of Insertion: 20:56 Date Urinary Catheter Removed: 04/17/25 Data 04/20/25 03:45 04/20/25 03:45 A&P Assessment and plan 1. Cardiogenic shock: 2. Atrial fibrillation with rapid ventricular response: 3. Ischemic cardiomyopathy: 4. Systolic CHF: 5. Acute kidney injury: 6. NSTEMI (non-ST elevated myocardial infarction): 7. Acute hypoxic respiratory failure: Plan: Acute hypoxic respiratory failure - Multifactorial - From systolic CHF exacerbation, pulm edema, fluid overload - From A-fib with RVR -Recently had a CT angiogram of the chest was negative for PE 03/04/2025 CT/CT angio chest PE protcl [id number] IMPRESSION: 1. No pulmonary embolism. 2. Marked enlargement of the LEFT heart including the ventricle and LEFT atrium. 3. Diffuse hazy attenuation throughout both lungs. Likely this is interstitial edema. Pneumonitis may appear similar. 4. Mediastinal and hilar mildly enlarged lymph nodes. Reactive lymphadenopathy suspected. 5. Prior gastric bypass. Plan - Monitor respiratory status closely - ABG - Amiodarone drip with amiodarone bolus, de-escalated to p.o. amiodarone - Therapeutic Lovenox - Lasix 40 IV twice daily, with albumin twice daily, metolazone - Levophed, maintain MAP in the 75 - DuoNeb as needed - BiPAP as needed - DNR, does not want CPR, does not want cardioversion, okay to with drugs per ACLS - Okay with elective intubation if required Systolic CHF 03/2025 CONCLUSIONS Severe diffuse hypokinesis of the left ventricular ejection fraction of around 16%. Moderately dilated LV cavity. Mildly increased right ventricular size. Mildly decreased right ventricular systolic function. Mildly increased right atrial size. Moderately increased left atrial size. Thickened mitral valve. Mild-moderate mitral valve regurgitation. Thickened aortic valve. Trace tricuspid valve regurgitation. Trace pulmonary valve regurgitation. Compared to the study from 01/04/2022, there is a significant drop in the left ventricular ejection fraction from 55 - 60% to 16% Patient was found to be tachycardic(atrial fibrillation with rapid ventricular rate) during the study. The ejection fraction estimation could be misleading because of the tachycardia - Cardiology consulted NSTEMI -Currently EKG no acute ST-T wave changes, no chest pain - Type I versus type II -Serial EKGs, serial troponins, telemetry monitoring - Aspirin, statin - Repeat cardiac echo, pending - Therapeutic Lovenox Acute kidney injury - Recent history of CT angiogram of chest, possible: Contrast-induced nephropathy - Concerns for cardiorenal syndrome Atrial fibrillation with rapid ventricular response - Amiodarone drip, p.o. amiodarone - Therapeutic Lovenox Cardiogenic shock - Multifactorial from systolic CHF, concern for ischemic cardiomyopathy, NSTEMI - Start Levophed - Can consider dobutamine however high risk of tachyarrhythmia with patient's current A-fib with RVR Acute cholecystitis? US/US abdomen complete* [id number] IMPRESSION: 1. Technically difficult exam. 2. Cholelithiasis with gallbladder wall thickening raising concern for acute cholecystitis. Recommend clinical correlation. 3. Mild hepatomegaly. Indeterminate echogenic tissue at the liver margin where it impression abuts the right kidney. Recommend liver protocol MRI for further characterization. 4. Mildly atrophic left kidney with mild cortical thinning and increased cortical echogenicity, suggestive of chronic medical renal disease. No hydronephrosis bilaterally. CT scan abdomen pelvis CT/CT abdomen pelvis wo con [id number] IMPRESSION: 1. Ascites and bilateral pleural effusions. Anasarca. 2. Cholelithiasis 3. Status post appendectomy. 4. Status post lap band 5. Significant coronary artery calcifications. -AST 147, ALT 144, GGT 52, lipase 38, alk phos 79 -Acute cholecystitis with cholelithiasis versus congestive hepatopathy from severe cardiomyopathy -Clinically no right upper quadrant abdominal pain per se, no nausea, no vomiting Plan -Continue ciprofloxacin, continue Flagyl -Continue serial abdominal exams -Monitor LFTs Type 2 diabetes mellitus, low-dose sliding scale Abdominal pain, ultrasound abdomen, LFTs Lovenox for DVT prophylaxis DNR, okay with elective intubation if required Prognosis is guarded, status is stable Plan for today continue IV antibiotics, continue IV diuresis, 04/20/2025 Seen this morning. Elevated liver enzymes most likely secondary to congestive hepatopathy however acute cholecystitis cannot be ruled out. Patient going for cardiac cath in a.m. AST 37, ALT 116. Total bilirubin 1.3. Gallbladder wall thickening measuring up to 8 mm in thickness. Visible gallstones. Biliary ducts nondilated common duct measures 0.5 cm gail hepatis. Consult general surgery. Ciprofloxacin and metronidazole. Switch to Zosyn. Patient's EF is 10%. Plan for cardiac cath in AM. Cardiology following Continue amiodarone 400 twice daily Patient on IV albumin every 12 hours. Creatinine 1.7. BNP 7192. N.p.o. at midnight tonight. Hold Entresto, spironolactone. Eliquis being held at this time. Will discuss further plan with cardiology. Continue to monitor in ICU. PDMP PDMP Reviewed: Not Reviewed Attestations 2 Medical Necessity Statement*: Coronary angiogram in AM. Diagnoses Cardiogenic shock R57.0 Atrial fibrillation with rapid ventricular response I48.91 Ischemic cardiomyopathy I25.5 Systolic CHF I50.20 Acute kidney injury N17.9 NSTEMI (non-ST elevated myocardial infarction) I21.4 Acute hypoxic respiratory failure J96.01
--- NOTE | 2025-04-20 15:45 | PM.CONSULT ---
Providers/Reason For Consult Consulting Physician/Specialty*: General Surgery Reason for Consult*: Possible acute cholecystitis Attending Physician: Michelle Simpson MD Primary Care Provider: Timur Myers MD History of Present Illness History of Present Illness Harman Swanson is a 59 year old male admitted with coronary arterial disease systolic heart failure with low ejection fraction. During workup process patient was noted to have elevated bilirubin to 1.3 with slight elevation of LFTs and he got a CAT scan and ultrasound of the abdomen showed evidence of a stones with a ALSO showing thickening of the gallbladder wall I was consulted for possible cholecystitis. Patient currently asymptomatic has been tolerating diet no abdominal pain normal white count Review of Systems General: Reports: 10 or more systems reviewed and unremarkable except in HPI and below Medications/Allergies Home Medications ?Medication ?Instructions ?Recorded ?Confirmed ?Last Taken ?Type glipizide 10 mg tablet 10 mg PO DAILY 11/28/21 04/16/25 04/16/25 History Diabetic Shoes with 3 custom #1 ea 12/19/24 04/16/25 Unknown Rx inserts apixaban 5 mg tablet (Eliquis) 5 mg PO BID 04/16/25 04/16/25 04/16/25 History evolocumab 140 mg/mL subcutaneous 140 mg SUBCUT Q14D 04/16/25 04/16/25 04/15/25 History pen injector (Repatha SureJaiick) furosemide 40 mg tablet 40 mg PO BID 04/16/25 04/16/25 04/16/25 History metformin 1,000 mg tablet 1,000 mg PO BID 04/16/25 04/16/25 Unknown History metoprolol succinate 25 mg 12.5 mg PO DAILY 04/16/25 04/16/25 04/16/25 History tablet,extended release 24 hr oxybutynin chloride 10 mg 10 mg PO DAILY 04/16/25 04/16/25 04/16/25 History tablet,extended release 24 hr potassium chloride 10 mEq 20 meq PO BID 04/16/25 04/16/25 04/16/25 History tablet,extended release sacubitril 49 mg-valsartan 51 mg 1 tab PO BID 04/16/25 04/16/25 04/16/25 History tablet (Entresto) semaglutide 2 mg/dose (8 mg/3 mL) 2 mg SUBCUT Q7D 04/16/25 04/16/25 04/15/25 History subcutaneous pen injector (Ozempic) spironolactone 25 mg tablet 25 mg PO DAILY 04/16/25 04/16/25 04/16/25 History tamsulosin 0.4 mg capsule 0.4 mg PO DAILY 04/16/25 04/16/25 04/16/25 History Allergies Allergy/AdvReac Type Severity Reaction Status Date / Time [id number]-[id number] Reductase Allergy ADR-Vomitin Verified 03/25/25 14:16 Inhibitor g Current Medications Generic Name Dose Route Start Last Admin Trade Name Freq PRN Reason Stop Dose Admin Alprazolam 0.25 mg 04/16/25 17:59 04/20/25 02:11 Alprazolam 0.5 Mg Tablet PO 0.25 mg TID PRN Administration ANXIETY Amiodarone HCl 400 mg 04/17/25 16:30 04/20/25 05:37 Amiodarone 200 Mg Tablet PO 400 mg Q12H DIONNA Administration Aspirin 81 mg 04/16/25 17:45 04/20/25 08:38 Aspirin 81 Mg Ec Tablet PO 81 mg DAILY DIONNA Administration Enoxaparin Sodium 100 mg 04/16/25 18:00 04/20/25 07:34 Enoxaparin 100 Mg/Ml Syringe SUBCUT Not Given Q12H DIONNA Furosemide 40 mg 04/16/25 17:45 04/20/25 05:38 Furosemide 10 Mg/Ml Sdv 4ml IVP 40 mg Q12H DIONNA Administration Ciprofloxacin/Dextrose 400 mg in 200 mls @ 200 mls/hr 04/18/25 12:45 04/20/25 15:11 Cipro IV Infused Q12H DIONNA Infusion Protocol Metronidazole 500 mg in 100 mls @ 100 mls/hr 04/18/25 12:45 04/20/25 15:11 Flagyl Iv IV Infused Q8H DIONNA Infusion Protocol Albumin Human 25 g in 100 mls @ 60 mls/hr 04/20/25 07:00 04/20/25 13:29 Albumin IV Infused Q12H DIONNA Infusion Insulin Human Lispro 0 unit 04/16/25 18:00 04/20/25 11:34 Insulin Lispro 100 Unit/1 Ml SUBCUT 6 unit TIDWM DIONNA Administration Protocol Metoclopramide HCl 5 mg 04/17/25 16:30 04/19/25 17:17 Metoclopramide 5 Mg/Ml Sdv 2 Ml IVP 5 mg Q6H PRN Administration NAUSEA AND VOMITING Morphine Sulfate 1 mg 04/16/25 17:42 04/16/25 20:14 Morphine 4 Mg/Ml Sdv 1 Ml IVP 1 mg Q4H PRN Administration SEVERE PAIN Ondansetron HCl 4 mg 04/16/25 17:42 04/19/25 22:59 Ondansetron 2 Mg/Ml Sdv 2 Ml IVP 4 mg Q8H PRN Administration vomiting, or N/V if npo Pantoprazole Sodium 40 mg 04/16/25 17:45 04/19/25 17:20 Pantoprazole 40 Mg Sdv IVP 40 mg Q24H DIONNA Administration PFSH Acute PFSH: Medical History (Updated 04/20/25 @ 15:48 by Dilip Rodriguez MD) HTN (hypertension) Diabetes Erectile dysfunction Surgical History Status post above-knee amputation of right lower extremity Family History Father , AT AGE 82 Heart disease Kidney disease Other CAD (coronary artery disease) Social History Smoking and tobacco/nicotine status: never used tobacco/nicotine Alcohol intake: current Alcohol intake frequency: few times a month Substance/Drug Use: never Marital status: Legally Current occupational status: retired Vitals/I&O/Wt Last Vital Signs Temp 97.8 F 04/20/25 09:00 Pulse 79 04/20/25 14:00 Resp 22 H 04/20/25 14:00 BP 113/75 04/20/25 14:00 Pulse Ox 94 04/20/25 14:00 O2 Del Method Room Air 04/20/25 14:00 04/20/25 04/20/25 04/20/25 06:59 14:59 22:59 Intake Total 522 / 1598 200 / 200 300 / 500 Output Total 2625 / 5925 1850 / 1850 350 / 2200 Balance -2103 / -4327 -1650 / -1650 -50 / -1700 Weight last 48 hrs Weight 214 lb 15.211 oz Weight 218 lb 4.122 oz Physical Exam GI: OTHER: Abdomen is soft nontender nondistended. Urinary Catheter Management: Wolfe: Cath Placed During This Visit: yes, but has since been removed by the nurse Reason for Continuing Indwelling Catheter: Accurate Measurement of Urinary Output in Critically Ill Patients Urinary Catheter Date of Insertion: 04/16/25 Urinary Catheter Time of Insertion: 20:56 Date Urinary Catheter Removed: 04/17/25 Data 04/20/25 03:45 04/20/25 03:45 A&P Assessment and plan 1. Ischemic cardiomyopathy: 2. Cardiogenic shock: 3. Thickening of wall of gallbladder: Plan: After complete history physical examination review of all available clinical data the following is my assessment. Patient does not meet criteria for acute cholecystitis at this time, I suspect imaging findings are most likely related to congestion due to the heart failure rather than primary biliary pathology. Patient has no abdominal pain and his white count is normal, he does have a stones but the CT scan fails to show any secondary evidence of inflammation. As a prophylactic measure we can complete a 5-day course of antibiotic but in addition to that I will not recommend any additional intervention or procedure. In the case of worsening white count or symptoms concerning for abdominal pain or changes in the vital signs despite antibiotic therapy the first step for this patient will be cholecystostomy tube placement as he is not currently a surgical candidate due to significant comorbidities. PDMP PDMP Reviewed: Not Reviewed Consult Attestations Medical Necessity Statement: Per medical team Coding Level of Care Code Acute Code for Chg Fwd Diagnoses Ischemic cardiomyopathy I25.5 Cardiogenic shock R57.0 Thickening of wall of gallbladder K82.8
[2025-04-20] MEDS: pantoprazole 40 mg SDV IVP (17:41)
--- NOTE | 2025-04-20 17:47 | PM.CONSULT ---
Providers/Reason For Consult Consulting Physician/Specialty*: [facility]/Nephrology Reason for Consult*: CKD Attending Physician: Michelle Simpson MD Primary Care Provider: Timur Myers MD History of Present Illness History of Present Illness Harman Swanson is a 59 year old male patient is a 59-year-old male with past medical history of A-fib, diabetes, hypertension, peripheral vascular disease of the above-knee amputation, was admitted to the hospital on 04/17/2025 due to chest pain and shortness of breath. Patient was found to be in A-fib with RVR. Patient was thought to be in cardiogenic shock and was started on IV albumin and IV Lasix. Patient's creatinine was 1.5 on presentation but has fluctuated anywhere from 1.5-1.9 since presentation. Patient does not have a history of CKD per patient. Last creatinine 1 was in 2021 which was normal. Cardiology evaluating patient and and thought to have NSTEMI and plan for left heart cardiac catheterization tomorrow. Review of Systems Narrative: negative Medications/Allergies Home Medications ?Medication ?Instructions ?Recorded ?Confirmed ?Last Taken ?Type glipizide 10 mg tablet 10 mg PO DAILY 11/28/21 04/16/25 04/16/25 History Diabetic Shoes with 3 custom #1 ea 12/19/24 04/16/25 Unknown Rx inserts apixaban 5 mg tablet (Eliquis) 5 mg PO BID 04/16/25 04/16/25 04/16/25 History evolocumab 140 mg/mL subcutaneous 140 mg SUBCUT Q14D 04/16/25 04/16/25 04/15/25 History pen injector (Repatha SureClick) furosemide 40 mg tablet 40 mg PO BID 04/16/25 04/16/25 04/16/25 History metformin 1,000 mg tablet 1,000 mg PO BID 04/16/25 04/16/25 Unknown History metoprolol succinate 25 mg 12.5 mg PO DAILY 04/16/25 04/16/25 04/16/25 History tablet,extended release 24 hr oxybutynin chloride 10 mg 10 mg PO DAILY 04/16/25 04/16/25 04/16/25 History tablet,extended release 24 hr potassium chloride 10 mEq 20 meq PO BID 04/16/25 04/16/25 04/16/25 History tablet,extended release sacubitril 49 mg-valsartan 51 mg 1 tab PO BID 04/16/25 04/16/25 04/16/25 History tablet (Entresto) semaglutide 2 mg/dose (8 mg/3 mL) 2 mg SUBCUT Q7D 04/16/25 04/16/25 04/15/25 History subcutaneous pen injector (Ozempic) spironolactone 25 mg tablet 25 mg PO DAILY 04/16/25 04/16/25 04/16/25 History tamsulosin 0.4 mg capsule 0.4 mg PO DAILY 04/16/25 04/16/25 04/16/25 History Allergies Allergy/AdvReac Type Severity Reaction Status Date / Time Llaples-YFE-QnT Reductase Allergy ADR-Vomitin Verified 03/25/25 14:16 Inhibitor g Current Medications Generic Name Dose Route Start Last Admin Trade Name Freq PRN Reason Stop Dose Admin Alprazolam 0.25 mg 04/16/25 17:59 04/20/25 02:11 Alprazolam 0.5 Mg Tablet PO 0.25 mg TID PRN Administration ANXIETY Amiodarone HCl 400 mg 04/17/25 16:30 04/20/25 15:58 Amiodarone 200 Mg Tablet PO 400 mg Q12H DIONNA Administration Aspirin 81 mg 04/16/25 17:45 04/20/25 08:38 Aspirin 81 Mg Ec Tablet PO 81 mg DAILY DIONNA Administration Enoxaparin Sodium 100 mg 04/16/25 18:00 04/20/25 17:41 Enoxaparin 100 Mg/Ml Syringe SUBCUT 100 mg Q12H DIONNA Administration Furosemide 40 mg 04/16/25 17:45 04/20/25 17:41 Furosemide 10 Mg/Ml Sdv 4ml IVP 40 mg Q12H DIONNA Administration Ciprofloxacin/Dextrose 400 mg in 200 mls @ 200 mls/hr 04/18/25 12:45 04/20/25 15:11 Cipro IV Infused Q12H DIONNA Infusion Protocol Metronidazole 500 mg in 100 mls @ 100 mls/hr 04/18/25 12:45 04/20/25 15:11 Flagyl Iv IV Infused Q8H DIONNA Infusion Protocol Albumin Human 25 g in 100 mls @ 60 mls/hr 04/20/25 07:00 04/20/25 13:29 Albumin IV Infused Q12H DIONNA Infusion Insulin Human Lispro 0 unit 04/16/25 18:00 04/20/25 17:41 Insulin Lispro 100 Unit/1 Ml SUBCUT 4 unit TIDWM DIONNA Administration Protocol Metoclopramide HCl 5 mg 04/17/25 16:30 04/19/25 17:17 Metoclopramide 5 Mg/Ml Sdv 2 Ml IVP 5 mg Q6H PRN Administration NAUSEA AND VOMITING Morphine Sulfate 1 mg 04/16/25 17:42 04/16/25 20:14 Morphine 4 Mg/Ml Sdv 1 Ml IVP 1 mg Q4H PRN Administration SEVERE PAIN Ondansetron HCl 4 mg 04/16/25 17:42 04/19/25 22:59 Ondansetron 2 Mg/Ml Sdv 2 Ml IVP 4 mg Q8H PRN Administration vomiting, or N/V if npo Pantoprazole Sodium 40 mg 04/16/25 17:45 04/20/25 17:41 Pantoprazole 40 Mg Sdv IVP 40 mg Q24H DIONNA Administration PFSH Acute PFSH: Medical History (Updated 04/20/25 @ 15:48 by Dilip Rodriguez MD) HTN (hypertension) Diabetes Erectile dysfunction Surgical History Status post above-knee amputation of right lower extremity Family History Father , AT AGE 82 Heart disease Kidney disease Other CAD (coronary artery disease) Social History Smoking and tobacco/nicotine status: never used tobacco/nicotine Alcohol intake: current Alcohol intake frequency: few times a month Substance/Drug Use: never Marital status: Legally Current occupational status: retired Vitals/I&O/Wt Last Vital Signs Temp 97.8 F 04/20/25 09:00 Pulse 81 04/20/25 16:00 Resp 20 H 04/20/25 16:00 BP 119/79 04/20/25 16:00 Pulse Ox 97 04/20/25 16:00 O2 Del Method Room Air 04/20/25 16:00 04/20/25 04/20/25 04/20/25 06:59 14:59 22:59 Intake Total 522 / 1598 200 / 200 300 / 500 Output Total 2625 / 5925 1850 / 1850 350 / 2200 Balance -2103 / -4327 -1650 / -1650 -50 / -1700 Weight last 48 hrs Weight 97.5 kg Weight 99 kg Physical Exam Narrative: awake alert, no distress HEENT PERRLA S1-S2 regular rate and rhythm per report Lungs with decreased breath sounds bilaterally per report Abdomen soft nontender per report No pedal edema Urinary Catheter Management: Wolfe: Cath Placed During This Visit: yes, but has since been removed by the nurse Reason for Continuing Indwelling Catheter: Accurate Measurement of Urinary Output in Critically Ill Patients Urinary Catheter Date of Insertion: 04/16/25 Urinary Catheter Time of Insertion: 20:56 Date Urinary Catheter Removed: 04/17/25 Data 04/20/25 03:45 04/20/25 03:45 A&P Assessment and plan 1. Acute renal insufficiency: 1. Chronic for chronic renal insufficiency: No baseline creatinine available, I suspect patient has CKD creatinine on presentation is 1.5 and creatinine has fluctuated anywhere from 1.5-1.9 during this admission. Patient admitted with cardiorenal syndrome and is status post aggressive diuresis. , Creatinine today at 1.7, and plan for left heart cath tomorrow, will hold diuretics temporarily and plan for gentle IV fluids -No hydronephrosis on CT, UA neg for blood and 2+ protein , will check UPCR - Explained to patient the risk of worsening renal insufficiency with IV contrast exposure, Along with risk of requiring dialysis. 2. 2.Acute on chronic respiratory failure in the setting of CHF exacerbation status post aggressive diuresis, monitor 3. NSTEMI, left heart cath tomorrow 4. A-fib with rapid [place] and status post amiodarone 5. History of hypertension Patient evaluated using audiovisual cart. Time spent 40 minutes PDMP PDMP Reviewed: Not Reviewed Consult Attestations Medical Necessity Statement: per medicine Coding Level of Care Code Acute Code for Chg Fwd Diagnoses Acute renal insufficiency N28.9
[2025-04-21] VITALS (81 sets, daily range): BP systolic 98–140; BP diastolic 60–94; PULSE 80–101; RESP 3–31; TEMP 36.7–37; O2SAT 61–100
[2025-04-21 02:35] LABS: Hematocrit 41.8 % (37-53); Hemoglobin 14.00 g/dL (11.27-16.99); Mean Corpuscular HGB Conc 33.5 g/dL (30-55); Mean Corpuscular Hemoglobin 29.4 pg (27-33); Mean Corpuscular Volume 87.6 fl (82-101); Nucleated Red Blood Cells % 0 %; Platelet Count 307 10^3/cmm (157-399); Red Blood Count 4.77 10^6/uL (3.85-5.65); White Blood Count 8.63 10^3/uL (3.29-11.43)
[2025-04-21 04:50] LABS: Alanine Aminotransferase 89 U/L (0-41); Albumin Level 4.9 g/dL (3.5-5.2); Alkaline Phosphatase 74 U/L (40-130); Anion Gap 20.7 (5-19); Aspartate Amino Transferase 24 U/L (0-40); Blood Urea Nitrogen 54 mg/dL (6-20); Calcium 10.1 mg/dL (8.5-10.5); Carbon Dioxide 29 mmol/L (22-29); Chloride 92 mmol/L (98-107); Creatinine Clr Calc Pharmacy 49.3158; Globulin 2.6 g/dL (1.3-4.6); Glucose 192 mg/dL (65-115); Magnesium 2.0 mg/dL (1.7-2.3); NT Pro B Type Natriuretic Pept 7627 pg/mL (0-125); Osmolality Calculated 306 mOsm/kg (285-295); Potassium 3.7 mmol/L (3.5-5.1); Sodium 138 mmol/L (136-145); Total Protein 7.5 g/dL (6.6-8.7)
[2025-04-21] MEDS: metroNIDAZOLE IV 500 MG/100 ML PREMIX 100 MG IV ×3 (05:22→19:58)
[2025-04-21] MEDS: albumin 25 G/100 ML BAG 60 G IV ×2 (05:45→18:10)
--- NOTE | 2025-04-21 08:00 | PC.NURSE ---
Macey, RN from [employer] [facility] called and notified that heart cath was going to be postponed due to creatinine of 2.0. Patient becomes tearfull. [id number] -- Dr. Esquivel to bedside to talk with patient. 0675 -- Patient tearful and requesting to speak with someone. Sedrick from pastoral services notified.
--- NOTE | 2025-04-21 09:42 | P.PN_ITS ---
Subjective 2 Subjective: no new c/o Medications: Reviewed: Yes Vitals/I&O/Wt Last Vital Signs Temp 98.1 F 04/21/25 08:00 Pulse 94 04/21/25 09:00 Resp 19 H 04/21/25 09:00 BP 139/94 04/21/25 09:00 Pulse Ox 97 04/21/25 08:00 O2 Del Method Room Air 04/21/25 08:00 04/20/25 04/21/25 04/21/25 22:59 06:59 14:59 Intake Total 400 / 600 400 / 1000 400 / 400 Output Total 1150 / 3000 800 / 3800 400 / 400 Balance -750 / -2400 -400 / -2800 0 / 0 Weight last 48 hrs Weight 97.5 kg Weight 97.5 kg Physical Exam 2 Narrative: awake alert, no distress HEENT PERRLA S1-S2 regular rate and rhythm per report Lungs with decreased breath sounds bilaterally per report Abdomen soft nontender per report No pedal edema Urinary Catheter Management: Wolfe: Cath Placed During This Visit: yes, but has since been removed by the nurse Reason for Continuing Indwelling Catheter: Accurate Measurement of Urinary Output in Critically Ill Patients Urinary Catheter Date of Insertion: 04/16/25 Urinary Catheter Time of Insertion: 20:56 Date Urinary Catheter Removed: 04/17/25 Data 04/21/25 02:18 04/21/25 02:18 A&P Assessment and plan 1. Acute renal insufficiency: 1. Chronic for chronic renal insufficiency: No baseline creatinine available, I suspect patient has CKD creatinine on presentation is 1.5 and creatinine has fluctuated anywhere from 1.5-1.9 during this admission. Patient admitted with cardiorenal syndrome and is status post aggressive diuresis. , Creatinine today at 2.0, and left heart cath postponed , will hold diuretics temporarily and plan for gentle IV fluids -No hydronephrosis on CT, UA neg for blood and 2+ protein , will check UPCR - Explained to patient the risk of worsening renal insufficiency with IV contrast exposure, Along with risk of requiring dialysis. 2. 2.Acute on chronic respiratory failure in the setting of CHF exacerbation status post aggressive diuresis, monitor 3. NSTEMI, left heart cath tomorrow 4. A-fib with rapid [place] and status post amiodarone 5. History of hypertension Patient evaluated using audiovisual cart. Time spent 40 minutes PDMP PDMP Reviewed: Not Reviewed Attestations 2 Medical Necessity Statement*: per medicne Coding Level of Care Code Acute Code for Chg Fwd Diagnoses Acute renal insufficiency N28.9
--- NOTE | 2025-04-21 10:53 | P.PN_ITS ---
<Statement entered by Isaiah Barr M.D - 04/23/25 12:13> Patient was cared for in conjunction with an advanced practice practitioner.? I reviewed the chart and all pertinent data including imaging, telemetry, and laboratory results.? I discussed the patient in detail with the advanced practice practitioner.? Please see?their note for progress note, testing results and agreed upon plan of care for the patient. Subjective 2 Subjective: Creatinine increased to 2.0 this morning. Coronary angiogram planned for today will be deferred. Holding diuretics. No chest pain or worsening shortness of breath. Vitals/I&O/Wt Last Vital Signs Temp 98.1 F 04/21/25 08:00 Pulse 85 04/21/25 10:00 Resp 17 04/21/25 10:00 BP 98/61 04/21/25 10:00 Pulse Ox 97 04/21/25 10:00 O2 Del Method Room Air 04/21/25 10:00 04/20/25 04/21/25 04/21/25 22:59 06:59 14:59 Intake Total 400 / 1000 400 / 1000 400 / 400 Output Total 1150 / 3800 800 / 3800 400 / 400 Balance -750 / -2800 -400 / -2800 0 / 0 Weight last 48 hrs Weight 214 lb 15.211 oz Weight 214 lb 15.211 oz Physical Exam 2 Const: COMMON NORMALS: no acute distress and patient oriented x3 GENERAL APPEARANCE: cooperative and comfortable ORIENTATION/CONSCIOUSNESS: Yes awake, Yes oriented to person, Yes oriented to place and Yes oriented to time Chest: COMMONS NORMALS: normal inspection of the chest and normal palpation of entire chest wall CHEST: Yes Symmetrical chest wall rise Resp: COMMON NORMALS: normal respiratory effort, No retractions, No use of accessory muscles and clear to auscultation bilaterally EFFORT & INSPECTION: Yes symmetric chest movement AUSCULTATION: clear to auscultation bilaterally Cardio: COMMON NORMALS: regular rate, regular rhythm, S1 normal heart sound present, S2 normal heart sound present, No gallops present (Cardio), No clicks present (Cardio), No murmurs present (Cardio) and No rub (Cardio) RATE: r egular rate RHYTHM: regular rhythm HEART SOUNDS: S1 normal heart sound present and S2 normal heart sound present PERIPHERAL PULSES: radial pulses present Extremity: GENERAL: Yes edema (trace pitting edema left leg below the knee) Neuro: COMMON NORMALS: patient oriented x3 and moves all extremities S ENSORIUM/ORIENTATION: Yes oriented to person, Yes oriented to place and Yes oriented to time Urinary Catheter Management: Wolfe: Cath Placed During This Visit: yes, but has since been removed by the nurse Reason for Continuing Indwelling Catheter: Accurate Measurement of Urinary Output in Critically Ill Patients Urinary Catheter Date of Insertion: 04/16/25 Urinary Catheter Time of Insertion: 20:56 Date Urinary Catheter Removed: 04/17/25 Data 04/21/25 02:18 04/21/25 02:18 A&P Assessment and plan 1. NSTEMI (non-ST elevated myocardial infarction): 2. Systolic CHF: 3. Ischemic cardiomyopathy: 4. Atrial fibrillation with rapid ventricular response: 5. Acute renal insufficiency: Plan: Will start IV fluid for 6 hours and midnight tonight running at 50 mL/h. Will reassess labs in the morning. Resume Lovenox today, hold tomorrow morning. Continue amiodarone 400 mg twice daily. PDMP PDMP Reviewed: Not Reviewed Attestations 2 Medical Necessity Statement*: plan for [facility] tomorrow Coding Level of Care Code Acute Code for [facility] Diagnoses NSTEMI (non-ST elevated myocardial infarction) I21.4 Systolic CHF I50.20 Ischemic cardiomyopathy I25.5 Atrial fibrillation with rapid ventricular response I48.91 Acute renal insufficiency N28.9
--- NOTE | 2025-04-21 11:41 | PICC.NOTE ---
Dressing changed to right upper arm PICC using sterile technique. Slight bruising noted at insertion site.
--- NOTE | 2025-04-21 12:54 | USCV_ITS ---
LauraHarman tilley Age: 59 Gender: M : 1965 Exam Date: 04/21/2025 17:51 Ordering Phys: Nanci Graham MD Technologist: RODRIGO Exam Location: [facility] [place] Indication: DALE Aortic Velocity @ SMA (cm/s) 57.5 RIGHT KIDNEY LEFT KIDNEY Velocity (cm/s) Velocity (cm/s) Sys/Downey Sys/Downey Resistive Index Resistive Index 31.2 / 12.0 0.62 Proximal Renal Artery 58.2 / 16.1 0.72 21.5 / 6.0 0.72 Mid Renal Artery 80.2 / 21.7 0.73 22.3 / 8.1 0.64 Distal Renal Artery 85.1 / 23.0 0.73 21.5 / 5.1 0.76 Hilar 22.8 / 7.1 0.69 15.2 / 5.1 0.66 Upper Pole 32.6 / 12.1 0.63 24.5 / 8.2 0.66 Mid Pole 42.4 / 15.1 0.64 13.5 / 5.7 0.58 Lower Pole 25.8 / 9.6 0.63 0.55 Renal Aortic Ratio 1.48 Accleration Time (sec) 96.30 Hilar 196.90 94.70 Upper Pole 102.40 114.90 Mid Pole 189.70 57.10 Lower Pole 95.80 10.7 Kidney Length (cm) 10.5 CONCLUSIONS No sonographic evidence of hemodynamically significant renal artery stenosis bilaterally. No hydronephrosis Avel Goodwin MD (Electronically Signed) Final Date: 22 April 2025 08:40 S
--- NOTE | 2025-04-21 15:14 | P.PN_ITS ---
Subjective 2 Subjective: seen this am cr 2.0 this am angiogram deferred due to renal fxn vitals stable Vitals/I&O/Wt Last Vital Signs Temp 98.0 F 04/21/25 12:00 Pulse 90 04/21/25 14:00 Resp 20 H 04/21/25 14:00 BP 112/77 04/21/25 14:00 Pulse Ox 95 04/21/25 14:00 O2 Del Method Room Air 04/21/25 14:00 04/21/25 04/21/25 04/21/25 06:59 14:59 22:59 Intake Total 400 / 1000 900 / 900 Output Total 800 / 3800 700 / 700 Balance -400 / -2800 200 / 200 Weight last 48 hrs Weight 97.5 kg Weight 97.5 kg Physical Exam 2 Const: COMMON NORMALS: no acute distress and patient oriented x3 Resp: COMMON NORMALS: normal respiratory effort, No retractions, No use of accessory muscles and clear to auscultation bilaterally (Very mild crackles at bases.) AUSCULTATION: clear to auscultation bilaterally (Very mild crackles at bases.) Cardio: COMMON NORMALS: regular rate, regular rhythm, S1 normal heart sound present and S2 normal heart sound present RATE: regular rate RHYTHM: r egular rhythm HEART SOUNDS: S1 normal heart sound present and S2 normal heart sound present GI: COMMON NORMALS: Normal to inspection, nondistended, normoactive bowel sounds present and non-tender Extremity: COMMON NORMALS: no calf tenderness and no pedal edema Neuro: COMMON NORMALS: patient oriented x3, CN's II-XII intact bilaterally and moves all extremities Psych: COMMON NORMALS: mental status grossly normal Urinary Catheter Management: Wolfe: Cath Placed During This Visit: yes, but has since been removed by the nurse Reason for Continuing Indwelling Catheter: Accurate Measurement of Urinary Output in Critically Ill Patients Urinary Catheter Date of Insertion: 04/16/25 Urinary Catheter Time of Insertion: 20:56 Date Urinary Catheter Removed: 04/17/25 Data 04/21/25 02:18 04/21/25 02:18 Micro: Microbiology 04/16/25 14:38 Blood Culture - Final Blood NO GROWTH AFTER 5 DAYS 04/16/25 14:33 Blood Culture - Final Blood NO GROWTH AFTER 5 DAYS A&P Assessment and plan 1. Cardiogenic shock: 2. Atrial fibrillation with rapid ventricular response: 3. Ischemic cardiomyopathy: 4. Systolic CHF: 5. Acute kidney injury: 6. NSTEMI (non-ST elevated myocardial infarction): 7. Acute hypoxic respiratory failure: Plan: Acute hypoxic respiratory failure - Multifactorial - From systolic CHF exacerbation, pulm edema, fluid overload - From A-fib with RVR -Recently had a CT angiogram of the chest was negative for PE 03/04/2025 CT/CT angio chest PE protcl [id number] IMPRESSION: 1. No pulmonary embolism. 2. Marked enlargement of the LEFT heart including the ventricle and LEFT atrium. 3. Diffuse hazy attenuation throughout both lungs. Likely this is interstitial edema. Pneumonitis may appear similar. 4. Mediastinal and hilar mildly enlarged lymph nodes. Reactive lymphadenopathy suspected. 5. Prior gastric bypass. Plan - Monitor respiratory status closely - ABG - Amiodarone drip with amiodarone bolus, de-escalated to p.o. amiodarone - Therapeutic Lovenox - Lasix 40 IV twice daily, with albumin twice daily, metolazone - Levophed, maintain MAP in the 75 - DuoNeb as needed - BiPAP as needed - DNR, does not want CPR, does not want cardioversion, okay to with drugs per ACLS - Okay with elective intubation if required Systolic CHF 03/2025 CONCLUSIONS Severe diffuse hypokinesis of the left ventricular ejection fraction of around 16%. Moderately dilated LV cavity. Mildly increased right ventricular size. Mildly decreased right ventricular systolic function. Mildly increased right atrial size. Moderately increased left atrial size. Thickened mitral valve. Mild-moderate mitral valve regurgitation. Thickened aortic valve. Trace tricuspid valve regurgitation. Trace pulmonary valve regurgitation. Compared to the study from 01/04/2022, there is a significant drop in the left ventricular ejection fraction from 55 - 60% to 16% Patient was found to be tachycardic(atrial fibrillation with rapid ventricular rate) during the study. The ejection fraction estimation could be misleading because of the tachycardia - Cardiology consulted NSTEMI -Currently EKG no acute ST-T wave changes, no chest pain - Type I versus type II -Serial EKGs, serial troponins, telemetry monitoring - Aspirin, statin - Repeat cardiac echo, pending - Therapeutic Lovenox Acute kidney injury - Recent history of CT angiogram of chest, possible: Contrast-induced nephropathy - Concerns for cardiorenal syndrome Atrial fibrillation with rapid ventricular response - Amiodarone drip, p.o. amiodarone - Therapeutic Lovenox Cardiogenic shock - Multifactorial from systolic CHF, concern for ischemic cardiomyopathy, NSTEMI - Start Levophed - Can consider dobutamine however high risk of tachyarrhythmia with patient's current A-fib with RVR Acute cholecystitis? US/US abdomen complete* [id number] IMPRESSION: 1. Technically difficult exam. 2. Cholelithiasis with gallbladder wall thickening raising concern for acute cholecystitis. Recommend clinical correlation. 3. Mild hepatomegaly. Indeterminate echogenic tissue at the liver margin where it impression abuts the right kidney. Recommend liver protocol MRI for further characterization. 4. Mildly atrophic left kidney with mild cortical thinning and increased cortical echogenicity, suggestive of chronic medical renal disease. No hydronephrosis bilaterally. CT scan abdomen pelvis CT/CT abdomen pelvis wo con [id number] IMPRESSION: 1. Ascites and bilateral pleural effusions. Anasarca. 2. Cholelithiasis 3. Status post appendectomy. 4. Status post lap band 5. Significant coronary artery calcifications. -AST 147, ALT 144, GGT 52, lipase 38, alk phos 79 -Acute cholecystitis with cholelithiasis versus congestive hepatopathy from severe cardiomyopathy -Clinically no right upper quadrant abdominal pain per se, no nausea, no vomiting Plan -Continue ciprofloxacin, continue Flagyl -Continue serial abdominal exams -Monitor LFTs Type 2 diabetes mellitus, low-dose sliding scale Abdominal pain, ultrasound abdomen, LFTs Lovenox for DVT prophylaxis DNR, okay with elective intubation if required Prognosis is guarded, status is stable Plan for today continue IV antibiotics, continue IV diuresis, 04/20/2025 Seen this morning. Elevated liver enzymes most likely secondary to congestive hepatopathy however acute cholecystitis cannot be ruled out. Patient going for cardiac cath in a.m. AST 37, ALT 116. Total bilirubin 1.3. Gallbladder wall thickening measuring up to 8 mm in thickness. Visible gallstones. Biliary ducts nondilated common duct measures 0.5 cm gail hepatis. Consult general surgery. Ciprofloxacin and metronidazole. Switch to Zosyn. Patient's EF is 10%. Plan for cardiac cath in AM. Cardiology following Continue amiodarone 400 twice daily Patient on IV albumin every 12 hours. Creatinine 1.7. BNP 7192. N.p.o. at midnight tonight. Hold Entresto, spironolactone. Eliquis being held at this time. Will discuss further plan with cardiology. Continue to monitor in ICU. 04/21/2025 coronary angiogram deferred today creatnine 2.0 this am nephrology following cardiology following continue amiodarone 400 BID continue to hold eliquis continue to monitor BMP daily pt 7L negative since admission. PDMP PDMP Reviewed: Not Reviewed Attestations 2 Medical Necessity Statement*: plan for [facility] tomorrow Diagnoses Cardiogenic shock R57.0 Atrial fibrillation with rapid ventricular response I48.91 Ischemic cardiomyopathy I25.5 Systolic CHF I50.20 Acute kidney injury N17.9 NSTEMI (non-ST elevated myocardial infarction) I21.4 Acute hypoxic respiratory failure J96.01
[2025-04-21] MEDS: pantoprazole 40 mg SDV IVP (18:10)
--- NOTE | 2025-04-21 21:50 | PC.NURSE ---
Provider notified of patients request for something to help him sleep as he has been unable to rest the last two nights. Provider gave telephone order for one time 3mg Melatonin. Order placed. See MAR
[2025-04-21] MEDS: MELATONIN 3 MG TABLET PO (21:54)
[2025-04-22] VITALS (71 sets, daily range): BP systolic 90–134; BP diastolic 56–92; PULSE 74–93; RESP 6–29; TEMP 36.5–37; O2SAT 79–100
[2025-04-22 04:06] LABS: Hematocrit 39.8 % (37-53); Hemoglobin 12.80 g/dL (11.27-16.99); Mean Corpuscular HGB Conc 32.2 g/dL (30-55); Mean Corpuscular Hemoglobin 28.2 pg (27-33); Mean Corpuscular Volume 87.7 fl (82-101); Nucleated Red Blood Cells % 0 %; Platelet Count 282 10^3/cmm (157-399); Red Blood Count 4.54 10^6/uL (3.85-5.65); White Blood Count 8.38 10^3/uL (3.29-11.43)
[2025-04-22] MEDS: metroNIDAZOLE IV 500 MG/100 ML PREMIX 100 MG IV (04:17)
[2025-04-22 04:30] LABS: Alanine Aminotransferase 62 U/L (0-41); Albumin Level 4.7 g/dL (3.5-5.2); Alkaline Phosphatase 63 U/L (40-130); Anion Gap 17.7 (5-19); Aspartate Amino Transferase 25 U/L (0-40); Blood Urea Nitrogen 50 mg/dL (6-20); Calcium 9.7 mg/dL (8.5-10.5); Carbon Dioxide 29 mmol/L (22-29); Chloride 99 mmol/L (98-107); Creatinine Clr Calc Pharmacy 51.9114; Globulin 2.7 g/dL (1.3-4.6); Glucose 163 mg/dL (65-115); Magnesium 2.2 mg/dL (1.7-2.3); Osmolality Calculated 311 mOsm/kg (285-295); Potassium 3.7 mmol/L (3.5-5.1); Sodium 142 mmol/L (136-145); Total Protein 7.4 g/dL (6.6-8.7)
[2025-04-22 04:45] LABS: NT Pro B Type Natriuretic Pept 6930 pg/mL (0-125)
--- NOTE | 2025-04-22 07:00 | XACV_ITS ---
Exam Room: [facility] Ht: 183 cm Wt: 97 kg BSA: 2.24 m2 Gender: Male : 1965 Any Known Allergies: Other Exam Priority: Routine Procedure(s): Procedure Description: Diagnostic procedure Procedure Description: PCI procedure Procedure Description: Coronary IVUS Procedure Description: Drug Eluting Coronary Stent Procedure Description: PTCA Procedure Description: Miscellaneous Procedure Description: ACT Procedure Description: Coronary Angiography Procedure Description: Pressure Wire Diagnostic Cath Status: Elective Diagnostic Findings * Left Main has no significant disease. * Circumflex has chronic total occlusion. * Proximal Right Coronary Artery: Critical 95% stenosis. * Proximal Left Anterior Descending: obstructive 70% stenosis, WON: 3 flow. * Mid Left Anterior Descending: obstructive 70% stenosis, WON: 3 flow. * Coronary angiography shows right dominance. PCI Status: Elective PCI Indication: Other Interventional Findings * Mid to distal Left Anterior Descendin% stenosis treated with a TREK 2.50X30 RX BALLOON, FINA Betancur RAMONA 3.0X34 REYES, and MDT NC EUPHORA RX 3.46B46ST BALLOON. * Procedure detail:We engaged left main artery with XB 3.0 guide catheter. iFR was performed of LAD and was significantly abnormal with a value of 0.60. We performed PCI with 3 stents. Excellent stent expansion was noted. We then performed PCI of proximal RCA with 1 stent. 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 * Mid Left Anterior Descendin% stenosis treated with a AB TREK 2.50X30 RX BALLOON, MDT R RAMONA 2.5X30 REYES, MDT R RAMONA 3.0X18 REYES, and MDT NC EUPHORA RX 3.12R15UV BALLOON. * Proximal Right Coronary Artery: 70% stenosis treated with a AB TREK 2.50X30 RX BALLOON, MDT R RAMONA 3.0X34 REYES, MDT NC EUPHORA RX 3.14F49UE BALLOON, and MDT NC EUPHORA RX 3.57U24EI BALLOON. Conclusions 1. Severe multivessel coronary artery disease s/p PCI of LAD with 3 stents. ( stenosis confirmed with iFR to be significant). S/p PCI of proximal RCA with 1 stent. 2. Proximal Left Anterior Descending was treated with a Balloon, Drug Eluting Stent, and Balloon. 3. Mid Left Anterior Descending was treated with a Balloon, Drug Eluting Stent, Drug Eluting Stent, and Balloon. 4. Proximal Right Coronary Artery was treated with a Balloon, Drug Eluting Stent, Balloon, and Balloon. Recommendations * Eliquis and plavix. * Outpatient cardiology follow up in 2 weeks. Interventional RX Recommendation: PCI w/o planned CABG Diagnostic RX Recommendation: PCI w/o planned CABG Anticoagulation: Heparin Pressures Phase:Rest AO : 125 / 60 ( 81 ) @ 8:43:00 AM 116 / 74 ( 89 ) @ 8:47:00 AM 122 / 79 ( 98 ) @ 8:51:00 AM 126 / 76 ( 97 ) @ 9:18:00 AM Clinical Evaluation EBL: 5mL-10mL Procedural Details Procedure Consent Obtained. Admit Source: In Patient. Pre-Procedure Time Out. Identified patient by full name and date of as verbalized by the patient/guarantor. Does the consent match the physician's order: Yes. Accurate & Complete Informed Consent: Yes. Inpatient/Outpatient History & Physical on Chart: Yes. If H&P is completed, is and addenduem needed: No; If yes, is the addendum complete: N/A. Visualize and Verify Site with Patient/Guarantor: N/A. Relevant Radiology Images available: N/A. The risks, benefits, and alternatives of sedation and/or procedure were discussed by physician. The patient agrees to continue. Procedure started. [facility] Clinical Fraility Score: 6: Moderately Frail. Director Voice Indications: LV Dysfunction. Correct patient, site and procedure confirmed by cath team. Current diagnosis: New onset heart failure, LV dysfunction. PERRLA. 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 Lungs clear x 5 lobes. IV Site on Arrival: 18 gauge in the left forearm. IV Site on Arrival: Double lumen PICC line right upper arm. IV Fluids: 0.9% NaCl at KVO. 800 mL infused prior to physical laboratory assistant. Pre Procedural Pulses: right radial was 2+. Oxygen started at 2liters/min via nasal canula. right radial was prepped with chloroprep then draped in the usual sterile fashion. right groin was prepped with chloroprep then draped in the usual sterile fashion. Baseline sample Acquired. HR: 96 BPM. Physician notified. Physician arrived. Physician scrubbed in. Immediate Pre-Procedure Time Out. Correct Patient: Yes; Correct Procedure: Yes; Correct Site: Yes; Correct Patient Position: Yes; Correct Supplies: Yes; Dried Flammable Prep: Yes; Blood Products Available: Yes;. Lidocaine 1% infiltrated to the right radial. Arterial access obtained. A 5 nauruan TIG catheter in over wire. View taken of right coronary artery. Catheter removed over the exchange wire. A 5 nauruan JL3.5 catheter in over wire. Catheter removed over the exchange wire. 6 nauruan XB 3.5 guide catheter was inserted over the wire. 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 Multiple views taken of left coronary artery. iFR pressure guidewire in through guide catheter to proximal LAD. Guidewire advanced across lesion. iFR proximal LAD 0.60 mmHg. iFR pullback proximal LAD 0.61mmHg. iFR wire out. Runthrough guidewire was advanced through the guide catheter to lesion in the prox LAD. Guidewire advanced across lesion. Balloon inserted to lesion in the mid LAD. Inflation number : 1 A AB TREK 2.50X30 RX BALLOON was prepped and advanced across the Mid LAD , then inflated to 8 XAVIER for 0:13 seconds. Inflation number: 1 The AB TREK 2.50X30 RX BALLOON was reinflated across the Prox LAD, to 10 XAVIER for 0:11 seconds. Inflation number: 2 The AB TREK 2.50X30 RX BALLOON was reinflated across the Prox LAD, to 12 XAVIER for 0:11 seconds. Balloon out. Results checked. Stent inserted to lesion in the mid LAD. Inflation Number : 2 A MDT R RAMONA 2.5X30 REYES -Lot Number# [id number] EXP 08-13-2027 was prepped and advanced across the Mid LAD. The stent was deployed at 12 XAVIER for 0:15 seconds. Stent balloon out over wire. Stent inserted to lesion in the prox LAD. Inflation Number : 3 A MDT R RAMONA 3.0X34 REYES -Lot Number# [id number] EXP 08-17-2027 was prepped and advanced across the Prox LAD. The stent was deployed at 14 XAVIER for 0:14 seconds. Stent balloon out over wire. Results checked. IVUS catheter in over the runthrough wire. IVUS run performed of LAD. IVUS catheter out OTW. Stent inserted to lesion in the mid LAD. Inflation Number : 3 A MDT R RAMONA 3.0X18 REYES -Lot Number# [id number] EXP 01-06-2026 was prepped and advanced across the Mid LAD. The stent was deployed at 12 XAVIER for 0:16 seconds. Stent balloon out over wire. Balloon inserted to lesion in the mid LAD. Inflation number : 4 A MDT NC EUPHORA RX [id number] BALLOON was prepped and advanced across the Mid LAD , then inflated to 14 XAVIER for 0:09 seconds. Inflation number: 4 The MDT NC EUPHORA RX 3.29H98UY BALLOON was reinflated across the Prox LAD, to 16 XAVIER for 0:11 seconds. Inflation number: 5 The MDT NC EUPHORA RX 3.34P34GG BALLOON was reinflated across the Prox LAD, to 18 XAVIER for 0:09 seconds. Inflation number: 6 The MDT NC EUPHORA RX 3.16E59UC BALLOON was reinflated across the Prox LAD, to 20 XAVIER for 0:11 seconds. Balloon out. Results checked. Wire out. Results checked. Guide catheter out. 6 nauruan JR 4 guide catheter was inserted over the wire. ACT drawn. Results 324 seconds. Therapeutic limits - pre-heparin administration 90-150 seconds and monitoring heparin during a vascular procedure >250 seconds. Runthrough guidewire was advanced through the guide catheter to lesion in the prox RCA. Guidewire advanced across lesion. Balloon inserted to lesion in the prox RCA. Inflation number: 1 The AB TREK 2.50X30 RX BALLOON was reinflated across the Prox RCA, to 10 XAVIER for 0:12 seconds. Inflation number: 2 The AB TREK 2.50X30 RX BALLOON was reinflated across the Prox RCA, to 12 XAVIER for 0:12 seconds. Balloon out. Stent inserted to lesion in the prox RCA. Inflation Number : 3 A MDT R RAMONA 3.0X34 REYES -Lot Number# [id number] EXP 08-17-2027 was prepped and advanced across the Prox RCA. The stent was deployed at 12 XAVIER for 0:16 seconds. Stent balloon out over wire. Balloon inserted to lesion in the prox RCA. Inflation number: 4 The MDT NC EUPHORA RX 3.09R68ED BALLOON was reinflated across the Prox RCA, to 14 XAVIER for 0:07 seconds. Balloon out. Balloon inserted to lesion in the prox RCA. Inflation number : 5 A MDT NC EUPHORA RX 3.35W20UW BALLOON was prepped and advanced across the Prox RCA , then inflated to 14 XAVIER for 0:13 seconds. Balloon out. Results checked. Wire out. ACT drawn. Results out of range high result . Therapeutic limits - pre-heparin administration 90-150 seconds and monitoring heparin during a vascular procedure >250 seconds. Guide catheter out. A TR Band was successful obtaining hemostatsis at the Right Radial artery insertion site. Post Procedure: Pulses reassessed and unchanged. PERRLA. 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 No VTE prophylaxis required. Post-op diagnosis: Multivessel CAD. Post PCI of prox to mid LAD placement of 3 REYES. Stent to prox RCA. Complications: None. Estimated blood loss: 5mL-10mL. Responsiveness - Normal response to verbal stimuli; alert and oriented, PERRLA. Airway - Unaffected, no intervention required; spontaneous ventilation. Circulation: W/N/L, pulses unchanged. Nausea/Vomiting: No. Medication's Wasted: Lidocaine 1% = 18 mL. Medication's Wasted: Nitro = 49.8 mg. Medication's Wasted: Other = Versed 1 mg , Fentanyl 75mcg. Medication's Wasted: Other = Benadryl 25mg. Medication's Wasted: Heparin = 2000 units mL. Total IV fluids: 60 mL. Procedure completed. Patient transferred by bed to ICU. Vital chart was stopped. Access Site Site: Right Radial artery Sheath Size: 6 Fr Hemostasis Method: TR Band Hemostasis Success: Successful Procedure Medications Start: 7:23 AM Stop: 7:23 AM Medication: Benadryl Amount: 25 mg Start: 7:24 AM Stop: 7:24 AM Medication: Versed Amount: 1 mg Route: I.V. Start: 7:24 AM Stop: 7:24 AM Medication: Fentanyl Amount: 50 mcg Route: I.V. Start: 7:37 AM Stop: 7:37 AM Medication: Heparin Amount: 5000 units Route: I.V. Start: 7:50 AM Stop: 7:50 AM Medication: Heparin Amount: 4000 units Route: I.V. Start: 7:33 AM Stop: 7:33 AM Medication: Nitrogylcerin Amount: 200 mcg Route: I.A. Start: 8:36 AM Stop: 8:36 AM Medication: Plavix Amount: 600 mg Route: P.O. Start: 8:36 AM Stop: 8:36 AM Medication: Aspirin Amount: 325 mg I, the attending physician, have reviewed and verified all procedure medications. Yes, all medications given per verbal order History/Risk Factors Hypertension: Yes Dyslipidemia: No Peripheral Arterial Disease (PAD): No Myocardial Infarction (IN): No Obesity: No Renal Disease: No Tobacco Use: Never Prior Interventions PCI: No CABG: No Valve Surgery: No Report Signatures Finalized by Isaiah Barr MD on 04/26/2025 11:49 PM
--- NOTE | 2025-04-22 07:28 | W.PM.OPSUD ---
Surgery/Procedure H&P Update DATE OF PROCEDURE: April 22, 2025 DATE H&P PERFORMED: 04/17/25 H&P UPDATE INFORMATION: I have reviewed H&P completed within last 30 days, I have examined patient prior to procedure and Changes to prior documentation as noted here CHANGES TO PREVIOUS DOCUMENTATION: Has severe LV dysfunction. Plan for coronary angiogram PREOP DIAGNOSIS: LV dysfunction PRIMARY INDICATION FOR PROCEDURE: LV dysfunction PLANNED PROCEDURE: Operation Date: 04/21/25 08:30 Proposed Procedures p Cardiac Catheterization(Left) - Isaiah Barr M.D Possible percutaneous coronary intervention PATIENT REASSESSED PRIOR TO SEDATION, WITH NO CHANGE NOTED: Yes PHYSICAL EXAM: alert, oriented x 3, clear to auscultation bilaterally and regular rate & rhythm AIRWAY EVAL/ANESTHESIA PLAN: normal airway, ASA IV, Local Anesthesia, Risks, benefits & alternatives of sedation and/or procedure discussed and Patient agrees to continue as planned ADDITIONAL INFORMATION: Moderate sedation
--- NOTE | 2025-04-22 09:11 | PM.PROC ---
Procedure Note: Date of procedure: 04/22/25 Pre-procedure diagnosis: LV dysfunction Post-procedure diagnosis: other (Severe multivessel coronary artery disease) Procedure: Proximal to mid LAD with significant stenosis status post PCI with 3 stents. Critical stenosis of proximal RCA status post PCI with 1 stent. 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 From tomorrow he will be on eliquis and plavix IV fluids. Monitor renal function. Performing Provider: Isaiah Barr Estimated blood loss (mL): 10 Complications: None Condition: stable Disposition: no change Coding Level of Care Code Acute Code for Ayse Fernandez
--- NOTE | 2025-04-22 09:30 | P.PN_ITS ---
<Statement entered by Isaiah Barr M.D - 04/23/25 11:47> Patient was cared for in conjunction with an advanced practice practitioner.? I reviewed the chart and all pertinent data including imaging, telemetry, and laboratory results.? I discussed the patient in detail with the advanced practice practitioner.? Please see?their note for progress note, testing results and agreed upon plan of care for the patient. 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 No chest pain currently. Vitals/I&O/Wt Last Vital Signs Temp 97.7 F 04/22/25 17:30 Pulse 89 04/22/25 18:00 Resp 29 H 04/22/25 18:00 BP 113/82 04/22/25 18:00 Pulse Ox 99 04/22/25 18:00 O2 Del Method Room Air 04/22/25 18:00 04/22/25 04/22/25 04/22/25 06:59 14:59 22:59 Intake Total 300 / 1583.333 838 / 2071.333 1233.333 / 2071.333 Output Total 700 / 1650 300 / 1275 975 / 1275 Balance -400 / -66.667 538 / 796.333 258.333 / 796.333 Weight last 48 hrs Weight 214 lb 13.8 oz Weight 214 lb 15.211 oz Physical Exam 2 Const: COMMON NORMALS: no acute distress and patient oriented x3 GENERAL APPEARANCE: cooperative ORIENTATION/CONSCIOUSNESS: Yes awake, Yes oriented to person, Yes oriented to place and Yes oriented to time Chest: COMMONS NORMALS: normal inspection of the chest and normal palpation of entire chest wall CHEST: Yes Symmetrical chest wall rise Resp: COMMON NORMALS: normal respiratory effort, No retractions, No use of accessory muscles and clear to auscultation bilaterally AUSCULTATION: clear to auscultation bilaterally Cardio: COMMON NORMALS: regular rate, regular rhythm, S1 normal heart sound present, S2 normal heart sound present, No gallops present (Cardio), No clicks present (Cardio), No murmurs present (Cardio) and No rub (Cardio) RATE: r egular rate RHYTHM: regular rhythm HEART SOUNDS: S1 normal heart sound present and S2 normal heart sound present PERIPHERAL PULSES: radial pulses present positive right 2+ and femoral pulses present positive right 2+ Neuro: COMMON NORMALS: patient oriented x3 and moves all extremities S ENSORIUM/ORIENTATION: Yes oriented to person, Yes oriented to place and Yes oriented to time Skin: WOUNDS: Yes surgical site (no hematoma palpable) Details: no odor Urinary Catheter Management: Wolfe: Cath Placed During This Visit: yes, but has since been removed by the nurse Reason for Continuing Indwelling Catheter: Accurate Measurement of Urinary Output in Critically Ill Patients Urinary Catheter Date of Insertion: 04/16/25 Urinary Catheter Time of Insertion: 20:56 Date Urinary Catheter Removed: 04/17/25 Data 04/22/25 03:36 04/22/25 03:36 Micro: Microbiology 04/16/25 18:31 Blood Culture - Final Blood NO GROWTH AFTER 5 DAYS 04/16/25 18:31 Blood Culture - Final Blood NO GROWTH AFTER 5 DAYS 04/16/25 14:38 Blood Culture - Final Blood NO GROWTH AFTER 5 DAYS 04/16/25 14:33 Blood Culture - Final Blood NO GROWTH AFTER 5 DAYS A&P Assessment and plan 1. CAD (coronary artery disease): 2. NSTEMI (non-ST elevated myocardial infarction): 3. Systolic CHF: 4. Ischemic cardiomyopathy: 5. Atrial fibrillation with rapid ventricular response: 6. Acute renal insufficiency: Plan: He had aspirin and Plavix today, will restart Eliquis with the evening dose tonight. Tomorrow will keep him on Eliquis and Plavix. Continue amiodarone 400 mg twice daily. He does not appear volume overloaded, will continue to hold Lasix for now. IV fluids for 6 hours at 50 mL/h. PDMP PDMP Reviewed: Not Reviewed Attestations 2 Medical Necessity Statement*: PCI today Coding Level of Care Code Acute Code for [facility] Diagnoses CAD (coronary artery disease) I25.10 NSTEMI (non-ST elevated myocardial infarction) I21.4 Systolic CHF I50.20 Ischemic cardiomyopathy I25.5 Atrial fibrillation with rapid ventricular response I48.91 Acute renal insufficiency N28.9
[2025-04-22] MEDS: albumin 25 G/100 ML BAG 60 G IV ×2 (09:35→18:03)
--- NOTE | 2025-04-22 09:46 | P.PN_ITS ---
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 Patient on IV fluids and no complaints. No nausea no vomiting no fevers or chills or headaches Medications: Reviewed: Yes Medication Review Details: Current Medications Acetaminophen (Acetaminophen 325 Mg Tablet) 650 mg PO Q6H PRN PRN Reason: Mild/Mod Pain Or Temp >/= 101 Al Hydrox/Mg Hydrox/Simethicone (Ezpj-Wvy-Sjzqtgcan-Neida 30 Ml Udc) 30 ml PO Q15M PRN PRN Reason: INDIGESTION Amiodarone HCl (Amiodarone 200 Mg Tablet) 400 mg PO Q12H [facility] Last Admin: 04/22/25 04:18 Dose: 400 mg Apixaban (Apixaban 5 Mg Tablet) 5 mg PO BID@0900,2100 [facility] Atropine Sulfate (Atropine 1 Mg/Ml Sdv 1 Ml) 0.5 mg IVP PRN PRN PRN Reason: Symptomatic bradycardia Clopidogrel Bisulfate (Clopidogrel 75 Mg Tablet) 75 mg PO DAILY [facility] Furosemide (Furosemide 10 Mg/Ml Sdv 4ml) 40 mg IVP Q12H [facility] On Hold: 04/20/25 17:47 Last Admin: 04/20/25 17:41 Dose: 40 mg Glucagon (Glucagon 1 Mg/Ml Kit 1 Ml) 1 mg IM ONCE PRN; Protocol PRN Reason: Adult Acute Hypoglycemia Nursing Prot. Dextrose (D5w) 500 mls @ 0 mls/hr IV ONCE PRN; Protocol PRN Reason: Adult Acute Hypoglycemia Prot Dextrose (D10w) 125 mls @ 750 mls/hr IV PRN PRN; Protocol PRN Reason: Adult Acute Hypoglycemia Nursing Protocol Dextrose (D10w) 250 mls @ 1,000 mls/hr IV PRN PRN; Protocol PRN Reason: Adult Acute Hypoglycemia Nursing Protocol Norepinephrine Bitartrate (Levophed) 4 mg in 250 mls @ 0 mls/hr IV .Q0M [facility]; Protocol On Hold: 04/21/25 07:00 Comment: Order held by Process Transfer Ciprofloxacin/Dextrose (Cipro) 400 mg in 200 mls @ 200 mls/hr IV Q12H [facility]; Protocol Last Infusion: 04/22/25 02:42 Dose: Infused Metronidazole (Flagyl Iv) 500 mg in 100 mls @ 100 mls/hr IV Q8H [facility]; Protocol Last Infusion: 04/22/25 05:18 Dose: Infused Albumin Human (Albumin) 25 g in 100 mls @ 60 mls/hr IV Q12H [facility] Last Admin: 04/22/25 09:35 Dose: 60 mls/hr Sodium Chloride (Sodium Chloride 0.9%) 1,000 mls @ 50 mls/hr IV .Q20H [facility] Stop: 04/22/25 15:04 Last Admin: 04/22/25 09:31 Dose: 50 mls/hr Insulin Human Lispro (Insulin Lispro 100 Unit/1 Ml) 0 unit SUBCUT TIDWM [facility]; Protocol Last Admin: 04/22/25 09:30 Dose: 2 unit Magnesium Hydroxide (Magnesium Hydroxide 30 Ml Udc) 30 ml PO DAILY PRN PRN Reason: CONSTIPATION Metoclopramide HCl (Metoclopramide 5 Mg/Ml Sdv 2 Ml) 5 mg IVP Q6H PRN PRN Reason: NAUSEA AND VOMITING Last Admin: 04/19/25 17:17 Dose: 5 mg Morphine Sulfate (Morphine 4 Mg/Ml Sdv 1 Ml) 1 mg IVP Q4H PRN PRN Reason: SEVERE PAIN Last Admin: 04/16/25 20:14 Dose: 1 mg Naloxone HCl (Naloxone 0.4 Mg/Ml Sdv) 0.1 mg IVP Q2M PRN PRN Reason: OPIATERV Nitroglycerin (Nitroglycerin 0.4 Mg Sublingual Tablet) 0.4 mg SUBLINGUAL Q5M PRN PRN Reason: CHEST PAIN Ondansetron HCl (Ondansetron 2 Mg/Ml Sdv 2 Ml) 4 mg IVP Q8H PRN PRN Reason: vomiting, or N/V if npo Last Admin: 04/19/25 22:59 Dose: 4 mg Pantoprazole Sodium (Pantoprazole 40 Mg Sdv) 40 mg IVP Q24H [facility] Last Admin: 04/21/25 18:10 Dose: 40 mg Temazepam (Temazepam 15 Mg Capsule) 15 mg PO BEDTIME PRN PRN Reason: INSOMNIA Vitals/I&O/Wt Last Vital Signs Temp 98.6 F 04/22/25 04:38 Pulse 84 04/22/25 06:30 Resp 15 04/22/25 06:30 BP 126/79 04/22/25 06:30 Pulse Ox 98 04/22/25 06:30 O2 Del Method Room Air 04/21/25 18:00 04/21/25 04/22/25 04/22/25 22:59 06:59 14:59 Intake Total 320 / 1283.333 300 / 1583.333 Output Total 250 / 950 700 / 1650 Balance 70 / 333.333 -400 / -66.667 Weight last 48 hrs Weight 97.46 kg Weight 97.5 kg Physical Exam 2 Narrative: Obese man in bed no apparent distress Vital signs stable. HEENT normocephalic atraumatic. neck Supple Lungs fine crackles left base otherwise clear Heart irregularly irregular Abdomen soft nontender nondistended positive bowel sounds. Extremities no edema. Right-sided above-knee amputation Neuro awake alert oriented x 3 Urinary Catheter Management: Wolfe: Cath Placed During This Visit: yes, but has since been removed by the nurse Reason for Continuing Indwelling Catheter: Accurate Measurement of Urinary Output in Critically Ill Patients Urinary Catheter Date of Insertion: 04/16/25 Urinary Catheter Time of Insertion: 20:56 Date Urinary Catheter Removed: 04/17/25 Data 04/22/25 03:36 04/22/25 03:36 Micro: Microbiology 04/16/25 18:31 Blood Culture - Final Blood NO GROWTH AFTER 5 DAYS 04/16/25 18:31 Blood Culture - Final Blood NO GROWTH AFTER 5 DAYS 04/16/25 14:38 Blood Culture - Final Blood NO GROWTH AFTER 5 DAYS 04/16/25 14:33 Blood Culture - Final Blood NO GROWTH AFTER 5 DAYS A&P Assessment and plan 1. Acute kidney injury: Male history of A-fib, diabetes hypertension, peripheral vascular disease with above-knee amputation patient was admitted on April 17, 2025 with shortness of breath A-fib and cardiogenic shock started on IV albumin and IV Lasix. Baseline creatinine was 1.5 mg/dL that is since increased around 2 mg/dL. Renal seeing the patient for acute kidney injury that is felt to be due to cardiorenal syndrome. We do not have any recent creatinines prior to this admission. Renal ultrasound reviewed right kidney 9.5 cm normal size no obstruction left kidney 10.4 cm also normal size. Urinalysis on admission dark yellow 2+ protein 1+ urobilinogen no blood Patient is status post cardiac stents this morning will monitor renal function post cath. Will give the patient mild fluids as patient has an EF of 10 to 15% and severely reduced EF BNP still elevated at 6930 status post cardiac stents this morning. Holding furosemide today. Repeat chemistries tomorrow morning. Medications reviewed as patient has renal insufficiency. Aluminum magnesium, and magnesium hydroxide Patient seen and examined with aid of of a nurse using audiovisual equipment. Patient consented to telehealth. Plan: S/p cardiac cath today. Monitor with IV fluids and off furosemide PDMP PDMP Reviewed: Not Reviewed Attestations 2 Medical Necessity Statement*: Heart failure reduced EF and acute renal failure. Time Spent in Patient Care: 16 - 35 minutes (>than 50% of time sp ent in counselling and/or direct pt care on unit) . Coding Level of Care Code Acute Code for [facility] Fwd Diagnoses Acute kidney injury N17.9
--- NOTE | 2025-04-22 09:46 | PC.SOCIAL ---
IMM Update pg 2 of IMM Updated and reviewed w/ patient. Copy provided and copy dated, initialed and placed in chart.
--- NOTE | 2025-04-22 12:01 | PM.PN ---
Subjective Subjective: Patient seen this morning status post cardiac angiogram. Proximal to mid LAD with significant stenosis status post PCI with 3 stents. Critical stenosis of proximal RCA status post PCI with 1 stent. 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 Vitals/I&O/Wt Last Vital Signs Temp 98.3 F 04/22/25 10:00 Pulse 86 04/22/25 11:00 Resp 9 L 04/22/25 11:00 BP 126/79 04/22/25 11:00 Pulse Ox 98 04/22/25 11:00 O2 Del Method Room Air 04/22/25 11:00 04/21/25 04/22/25 04/22/25 22:59 06:59 14:59 Intake Total 320 / 1283.333 300 / 1583.333 Output Total 250 / 950 700 / 1650 300 / 300 Balance 70 / 333.333 -400 / -66.667 -300 / -300 Weight last 48 hrs Weight 97.46 kg Weight 97.5 kg Physical Exam Const: COMMON NORMALS: no acute distress and patient oriented x3 Resp: COMMON NORMALS: normal respiratory effort, No retractions, No use of accessory muscles and clear to auscultation bilaterally AUSCULTATION: clear to auscultation bilaterally Cardio: COMMON NORMALS: regular rate, regular rhythm, S1 normal heart sound present and S2 normal heart sound present RATE: regular rate RHYTHM: regular rhythm HEART SOUNDS: S1 normal heart sound present and S2 normal heart sound present GI: COMMON NORMALS: Normal to inspection, nondistended, normoactive bowel sounds present and non-tender Extremity: COMMON NORMALS: no calf tenderness and no pedal edema Neuro: COMMON NORMALS: patient oriented x3, CN's II-XII intact bilaterally and moves all extremities Psych: COMMON NORMALS: mental status grossly normal Urinary Catheter Management: Wolfe: Cath Placed During This Visit: yes, but has since been removed by the nurse Reason for Continuing Indwelling Catheter: Accurate Measurement of Urinary Output in Critically Ill Patients Urinary Catheter Date of Insertion: 04/16/25 Urinary Catheter Time of Insertion: 20:56 Date Urinary Catheter Removed: 04/17/25 Data 04/22/25 03:36 04/22/25 03:36 Micro: Microbiology 04/16/25 18:31 Blood Culture - Final Blood NO GROWTH AFTER 5 DAYS 04/16/25 18:31 Blood Culture - Final Blood NO GROWTH AFTER 5 DAYS 04/16/25 14:38 Blood Culture - Final Blood NO GROWTH AFTER 5 DAYS 04/16/25 14:33 Blood Culture - Final Blood NO GROWTH AFTER 5 DAYS A&P Assessment and plan 1. Cardiogenic shock: 2. Atrial fibrillation with rapid ventricular response: 3. Ischemic cardiomyopathy: 4. Systolic CHF: 5. Acute kidney injury: 6. NSTEMI (non-ST elevated myocardial infarction): 7. Acute hypoxic respiratory failure: 8. Coronary artery disease status post coronary stent insertion: Plan: Acute hypoxic respiratory failure - Multifactorial - From systolic CHF exacerbation, pulm edema, fluid overload - From A-fib with RVR -Recently had a CT angiogram of the chest was negative for PE 03/04/2025 CT/CT angio chest PE protcl [id number] IMPRESSION: 1. No pulmonary embolism. 2. Marked enlargement of the LEFT heart including the ventricle and LEFT atrium. 3. Diffuse hazy attenuation throughout both lungs. Likely this is interstitial edema. Pneumonitis may appear similar. 4. Mediastinal and hilar mildly enlarged lymph nodes. Reactive lymphadenopathy suspected. 5. Prior gastric bypass. Plan - Monitor respiratory status closely - ABG - Amiodarone drip with amiodarone bolus, de-escalated to p.o. amiodarone - Therapeutic Lovenox - Lasix 40 IV twice daily, with albumin twice daily, metolazone - Levophed, maintain MAP in the 75 - DuoNeb as needed - BiPAP as needed - DNR, does not want CPR, does not want cardioversion, okay to with drugs per ACLS - Okay with elective intubation if required Systolic CHF 03/2025 CONCLUSIONS Severe diffuse hypokinesis of the left ventricular ejection fraction of around 16%. Moderately dilated LV cavity. Mildly increased right ventricular size. Mildly decreased right ventricular systolic function. Mildly increased right atrial size. Moderately increased left atrial size. Thickened mitral valve. Mild-moderate mitral valve regurgitation. Thickened aortic valve. Trace tricuspid valve regurgitation. Trace pulmonary valve regurgitation. Compared to the study from 01/04/2022, there is a significant drop in the left ventricular ejection fraction from 55 - 60% to 16% Patient was found to be tachycardic(atrial fibrillation with rapid ventricular rate) during the study. The ejection fraction estimation could be misleading because of the tachycardia - Cardiology consulted NSTEMI -Currently EKG no acute ST-T wave changes, no chest pain - Type I versus type II -Serial EKGs, serial troponins, telemetry monitoring - Aspirin, statin - Repeat cardiac echo, pending - Therapeutic Lovenox Acute kidney injury - Recent history of CT angiogram of chest, possible: Contrast-induced nephropathy - Concerns for cardiorenal syndrome Atrial fibrillation with rapid ventricular response - Amiodarone drip, p.o. amiodarone - Therapeutic Lovenox Cardiogenic shock - Multifactorial from systolic CHF, concern for ischemic cardiomyopathy, NSTEMI - Start Levophed - Can consider dobutamine however high risk of tachyarrhythmia with patient's current A-fib with RVR Acute cholecystitis? US/US abdomen complete* [id number] IMPRESSION: 1. Technically difficult exam. 2. Cholelithiasis with gallbladder wall thickening raising concern for acute cholecystitis. Recommend clinical correlation. 3. Mild hepatomegaly. Indeterminate echogenic tissue at the liver margin where it impression abuts the right kidney. Recommend liver protocol MRI for further characterization. 4. Mildly atrophic left kidney with mild cortical thinning and increased cortical echogenicity, suggestive of chronic medical renal disease. No hydronephrosis bilaterally. CT scan abdomen pelvis CT/CT abdomen pelvis wo con [id number] IMPRESSION: 1. Ascites and bilateral pleural effusions. Anasarca. 2. Cholelithiasis 3. Status post appendectomy. 4. Status post lap band 5. Significant coronary artery calcifications. -AST 147, ALT 144, GGT 52, lipase 38, alk phos 79 -Acute cholecystitis with cholelithiasis versus congestive hepatopathy from severe cardiomyopathy -Clinically no right upper quadrant abdominal pain per se, no nausea, no vomiting Plan -Continue ciprofloxacin, continue Flagyl -Continue serial abdominal exams -Monitor LFTs Type 2 diabetes mellitus, low-dose sliding scale Abdominal pain, ultrasound abdomen, LFTs Lovenox for DVT prophylaxis DNR, okay with elective intubation if required Prognosis is guarded, status is stable Plan for today continue IV antibiotics, continue IV diuresis, 04/20/2025 Seen this morning. Elevated liver enzymes most likely secondary to congestive hepatopathy however acute cholecystitis cannot be ruled out. Patient going for cardiac cath in a.m. AST 37, ALT 116. Total bilirubin 1.3. Gallbladder wall thickening measuring up to 8 mm in thickness. Visible gallstones. Biliary ducts nondilated common duct measures 0.5 cm gail hepatis. Consult general surgery. Ciprofloxacin and metronidazole. Switch to Zosyn. Patient's EF is 10%. Plan for cardiac cath in AM. Cardiology following Continue amiodarone 400 twice daily Patient on IV albumin every 12 hours. Creatinine 1.7. BNP 7192. N.p.o. at midnight tonight. Hold Entresto, spironolactone. Eliquis being held at this time. Will discuss further plan with cardiology. Continue to monitor in ICU. 04/21/2025 coronary angiogram deferred today creatnine 2.0 this am nephrology following cardiology following continue amiodarone 400 BID continue to hold eliquis continue to monitor BMP daily pt 7L negative since admission. 04/22/2025 Status post 4 drug-eluting stents Aspirin Plavix a day Starting tomorrow Eliquis with Plavix. Per cardiology Patient on Cipro and Flagyl. Today is day 5. Complete 5 days. Most likely had congestive hepatopathy. Appreciate general surgery consultation. Continue to monitor kidney function. Patient is at high risk of contrast-induced nephropathy. Nephrology following. Continue normal saline 50 cc/h. Appreciate cardiology and nephrology recommendations. PDMP PDMP Reviewed: Not Reviewed Attestations Medical Necessity Statement*: Status post left heart cath with 4 drug-eluting stents. Needs continued ICU monitoring. At high risk of contrast-induced nephropathy. Will need continued hospitalization for monitoring of kidney function. Diagnoses Cardiogenic shock R57.0 Atrial fibrillation with rapid ventricular response I48.91 Ischemic cardiomyopathy I25.5 Systolic CHF I50.20 Acute kidney injury N17.9 NSTEMI (non-ST elevated myocardial infarction) I21.4 Acute hypoxic respiratory failure J96.01 Coronary artery disease status post coronary stent insertion I25.10; Z95.5
--- NOTE | 2025-04-22 14:46 | PC.NURSE ---
received patient from crime lab technician staff at 0900. Patient is lethargic, but easily awoken. Oriented to person, place, time, and situation. BP: 126/82, HR: 86, SPO2: 95%, Temp: 97.3. Access via radial artery, TR band in place. 17mL of air. SIte is unremarkable. Pulses palpable distal to TR band, cap refill less than 3 seconds. no hematoma detected. no external bleeding.
--- NOTE | 2025-04-22 16:20 | PC.NURSE ---
Addendum entered by Shen Colvin RN 04/22/25 18:26: Ambulated again at 1730. patient's strength is better compared to initial ambulation, but still weaker than baseline. Original Note: Ambulated patient, walked approximately 100 feet over 15 minutes. No abnormal heart rhythm observed. Heart rate stayed under 100 during. Patient states that he doesn't feel quite ready to go based on his strength, but if he keeps getting up he thinks hell be good by tomorrow.
[2025-04-22] MEDS: pantoprazole 40 mg SDV IVP (17:00)
--- NOTE | 2025-04-22 17:58 | PC.NURSE ---
Shift Summary: received 3 stents in phlebotomist medical lab assistant. Radial access, TR band removed without incident. No abnormal heart rythms observed, vitals within normal. Ambulated twice today, about 100 feet each time. Totals Urine output: 1225
[2025-04-23] VITALS (44 sets, daily range): BP systolic 84–132; BP diastolic 48–99; PULSE 78–93; RESP 0–28; TEMP 36.7–37.1; O2SAT 77–100
[2025-04-23 05:30] LABS: Hematocrit 40.4 % (37-53); Hemoglobin 13.20 g/dL (11.27-16.99); Mean Corpuscular HGB Conc 32.7 g/dL (30-55); Mean Corpuscular Hemoglobin 29.1 pg (27-33); Mean Corpuscular Volume 89.0 fl (82-101); Nucleated Red Blood Cells % 0 %; Platelet Count 275 10^3/cmm (157-399); Red Blood Count 4.54 10^6/uL (3.85-5.65); White Blood Count 10.42 10^3/uL (3.29-11.43)
[2025-04-23 06:01] LABS: Alanine Aminotransferase 47 U/L (0-41); Albumin Level 4.8 g/dL (3.5-5.2); Alkaline Phosphatase 60 U/L (40-130); Anion Gap 18.0 (5-19); Aspartate Amino Transferase 20 U/L (0-40); Blood Urea Nitrogen 49 mg/dL (6-20); Calcium 9.8 mg/dL (8.5-10.5); Carbon Dioxide 27 mmol/L (22-29); Chloride 96 mmol/L (98-107); Creatinine Clr Calc Pharmacy 61.6736; Globulin 2.8 g/dL (1.3-4.6); Glucose 223 mg/dL (65-115); Magnesium 2.2 mg/dL (1.7-2.3); Osmolality Calculated 304 mOsm/kg (285-295); Potassium 4.0 mmol/L (3.5-5.1); Sodium 137 mmol/L (136-145); Total Protein 7.6 g/dL (6.6-8.7)
[2025-04-23] MEDS: albumin 25 G/100 ML BAG 60 G IV ×2 (06:25→18:15)
--- NOTE | 2025-04-23 08:45 | P.PN_ITS ---
<Statement entered by Isaiah Barr M.D - 04/28/25 07:43> Patient was cared for in conjunction with an advanced practice practitioner.? I reviewed the chart and all pertinent data including imaging, telemetry, and laboratory results.? I discussed the patient in detail with the advanced practice practitioner.? Please see?their note for progress note, testing results and agreed upon plan of care for the patient. Subjective 2 Subjective: No events noted overnight. He looks much better this morning. Shortness of breath significantly improved, no chest pain. He appears euvolemic, -396 for the last 24 hours, -7848 cumulative. Vitals/I&O/Wt Last Vital Signs Temp 98.2 F 04/23/25 08:30 Pulse 86 04/23/25 13:00 Resp 23 H 04/23/25 13:00 BP 121/78 04/23/25 13:30 Pulse Ox 99 04/23/25 13:00 O2 Del Method Room Air 04/23/25 08:22 04/22/25 04/23/25 04/23/25 22:59 06:59 14:59 Intake Total 1333.333 / 2291.333 120 / 2291.333 940 / 940 Output Total 975 / 2150 875 / 2150 275 / 275 Balance 358.333 / 141.333 -755 / 141.333 665 / 665 Weight last 48 hrs Weight 215 lb 2.738 oz Weight 214 lb 13.8 oz Physical Exam 2 Const: COMMON NORMALS: no acute distress and patient oriented x3 GENERAL APPEARANCE: cooperative and comfortable ORIENTATION/CONSCIOUSNESS: Yes awake, Yes oriented to person, Yes oriented to place and Yes oriented to time Chest: COMMONS NORMALS: normal inspection of the chest and normal palpation of entire chest wall CHEST: Yes Symmetrical chest wall rise Resp: COMMON NORMALS: normal respiratory effort, No retractions, No use of accessory muscles and clear to auscultation bilaterally EFFORT & INSPECTION: Yes symmetric chest movement AUSCULTATION: clear to auscultation bilaterally Cardio: COMMON NORMALS: regular rate, regular rhythm, S1 normal heart sound present, S2 normal heart sound present, No gallops present (Cardio), No clicks present (Cardio), No murmurs present (Cardio) and No rub (Cardio) RATE: r egular rate RHYTHM: regular rhythm HEART SOUNDS: S1 normal heart sound present and S2 normal heart sound present PERIPHERAL PULSES: radial pulses present Extremity: COMMON NORMALS: no pedal edema Neuro: COMMON NORMALS: patient oriented x3 and moves all extremities S ENSORIUM/ORIENTATION: Yes oriented to person, Yes oriented to place and Yes oriented to time Urinary Catheter Management: Wolfe: Cath Placed During This Visit: yes, but has since been removed by the nurse Reason for Continuing Indwelling Catheter: Accurate Measurement of Urinary Output in Critically Ill Patients Urinary Catheter Date of Insertion: 04/16/25 Urinary Catheter Time of Insertion: 20:56 Date Urinary Catheter Removed: 04/17/25 Data 04/23/25 04:39 04/23/25 04:39 A&P Assessment and plan 1. NSTEMI (non-ST elevated myocardial infarction): 2. CAD (coronary artery disease): 3. Systolic CHF: 4. Atrial fibrillation with rapid ventricular response: 5. Acute renal insufficiency: 6. Diabetes: Plan: He is s/p LAD stents x 3, RCA stent x 1. No chest pain since procedure. Shortness of breath significantly improved, he appears euvolemic, no lower extremity edema. Continue amiodarone 4 mg twice daily, Eliquis 5 mg twice daily. Creatinine 1.6 today. Will discuss LifeVest with him. Possible discharge tomorrow. PDMP PDMP Reviewed: Not Reviewed Attestations 2 Medical Necessity Statement*: Possible discharge tomorrow Coding Level of Care Code Acute Code for [facility] Diagnoses NSTEMI (non-ST elevated myocardial infarction) I21.4 CAD (coronary artery disease) I25.10 Systolic CHF I50.20 Atrial fibrillation with rapid ventricular response I48.91 Acute renal insufficiency N28.9 Diabetes E11.9
--- NOTE | 2025-04-23 09:36 | P.PN_ITS ---
Subjective 2 Subjective: Seen and examined. Feeling better. No nausea vomiting shortness of breath or chest pain. He has some abdominal pain overnight. Decreased edema in L his legs. Feels well and would like to go home soon. Medications: Reviewed: Yes Medication Review Details: Current Medications Acetaminophen (Acetaminophen 325 Mg Tablet) 650 mg PO Q6H PRN PRN Reason: Mild/Mod Pain Or Temp >/= 101 Amiodarone HCl (Amiodarone 200 Mg Tablet) 400 mg PO Q12H [facility] Last Admin: 04/23/25 04:37 Dose: 400 mg Apixaban (Apixaban 5 Mg Tablet) 5 mg PO BID@0900,2100 [facility] Last Admin: 04/23/25 08:42 Dose: 5 mg Atropine Sulfate (Atropine 1 Mg/Ml Sdv 1 Ml) 0.5 mg IVP PRN PRN PRN Reason: Symptomatic bradycardia Clopidogrel Bisulfate (Clopidogrel 75 Mg Tablet) 75 mg PO DAILY [facility] Last Admin: 04/23/25 08:42 Dose: 75 mg Furosemide (Furosemide 10 Mg/Ml Sdv 4ml) 40 mg IVP Q12H [facility] On Hold: 04/20/25 17:47 Last Admin: 04/20/25 17:41 Dose: 40 mg Glucagon (Glucagon 1 Mg/Ml Kit 1 Ml) 1 mg IM ONCE PRN; Protocol PRN Reason: Adult Acute Hypoglycemia Nursing Prot. Dextrose (D5w) 500 mls @ 0 mls/hr IV ONCE PRN; Protocol PRN Reason: Adult Acute Hypoglycemia Prot Dextrose (D10w) 125 mls @ 750 mls/hr IV PRN PRN; Protocol PRN Reason: Adult Acute Hypoglycemia Nursing Protocol Dextrose (D10w) 250 mls @ 1,000 mls/hr IV PRN PRN; Protocol PRN Reason: Adult Acute Hypoglycemia Nursing Protocol Norepinephrine Bitartrate (Levophed) 4 mg in 250 mls @ 0 mls/hr IV .Q0M [facility]; Protocol On Hold: 04/21/25 07:00 Comment: Order held by Process Transfer Albumin Human (Albumin) 25 g in 100 mls @ 60 mls/hr IV Q12H [facility] Last Infusion: 04/23/25 08:06 Dose: Infused Insulin Human Lispro (Insulin Lispro 100 Unit/1 Ml) 0 unit SUBCUT TIDWM [facility]; Protocol Last Admin: 04/23/25 08:42 Dose: 2 unit Metoclopramide HCl (Metoclopramide 5 Mg/Ml Sdv 2 Ml) 5 mg IVP Q6H PRN PRN Reason: NAUSEA AND VOMITING Last Admin: 04/19/25 17:17 Dose: 5 mg Naloxone HCl (Naloxone 0.4 Mg/Ml Sdv) 0.1 mg IVP Q2M PRN PRN Reason: OPIATERV Nitroglycerin (Nitroglycerin 0.4 Mg Sublingual Tablet) 0.4 mg SUBLINGUAL Q5M PRN PRN Reason: CHEST PAIN Ondansetron HCl (Ondansetron 2 Mg/Ml Sdv 2 Ml) 4 mg IVP Q8H PRN PRN Reason: vomiting, or N/V if npo Last Admin: 04/19/25 22:59 Dose: 4 mg Pantoprazole Sodium (Pantoprazole 40 Mg Sdv) 40 mg IVP Q24H [facility] Last Admin: 04/22/25 17:00 Dose: 40 mg Temazepam (Temazepam 15 Mg Capsule) 15 mg PO BEDTIME PRN PRN Reason: INSOMNIA Vitals/I&O/Wt Last Vital Signs Temp 98.2 F 04/23/25 08:30 Pulse 91 04/23/25 08:30 Resp 21 H 04/23/25 08:30 BP 84/50 04/23/25 08:30 Pulse Ox 92 04/23/25 08:30 O2 Del Method Room Air 04/23/25 08:22 04/22/25 04/23/25 04/23/25 22:59 06:59 14:59 Intake Total 1333.333 / 2171.333 120 / 2291.333 460 / 460 Output Total 975 / 1275 875 / 2150 275 / 275 Balance 358.333 / 896.333 -755 / 141.333 185 / 185 Weight last 48 hrs Weight 97.6 kg Weight 97.46 kg Physical Exam 2 Narrative: Obese man in bed no apparent distress Vital signs noted and blood pressure was low. HEENT normocephalic atraumatic. neck Supple Lungs are clear bilaterally Heart irregularly irregular Abdomen soft nontender nondistended positive bowel sounds. Extremities: Left lower extremity 1+ edema. Right-sided above-knee amputation Neuro awake alert oriented x 3 Urinary Catheter Management: Wolfe: Cath Placed During This Visit: yes, but has since been removed by the nurse Reason for Continuing Indwelling Catheter: Accurate Measurement of Urinary Output in Critically Ill Patients Urinary Catheter Date of Insertion: 04/16/25 Urinary Catheter Time of Insertion: 20:56 Date Urinary Catheter Removed: 04/17/25 Data 04/23/25 04:39 04/23/25 04:39 A&P Assessment and plan 1. Acute kidney injury: 59 yr old Male history of A-fib, diabetes hypertension, peripheral vascular disease with above-knee amputation patient was admitted on April 17, 2025 with shortness of breath A-fib and cardiogenic shock started on IV albumin and IV Lasix. Admission creatinine was 1.5 mg/dL that is since increased around 2 mg/dL. Renal seeing the patient for acute kidney injury that is felt to be due to cardiorenal syndrome. We do not have any recent creatinines prior to this admission. Renal ultrasound reviewed right kidney 9.5 cm normal size no obstruction left kidney 10.4 cm also normal size. Urinalysis on admission dark yellow 2+ protein 1+ urobilinogen no blood Patient is status post cardiac stents in April 22, 2025. Renal function appears to be improving Monitor renal function. Presumed diagnosis is cardiorenal syndrome. 2. Heart failure reduced EF -patient has an EF of 10 to 15% would likely need to restart furosemide for edema. Attempt hold furosemide today and restart tomorrow as needed Repeat chemistries tomorrow morning. Medications reviewed Patient seen and examined with aid of of a nurse using audiovisual equipment. Patient consented to telehealth. Patient will need outpatient renal follow-up Plan: S/p cardiac cath yesterday. Monitor renal function. PDMP PDMP Reviewed: Not Reviewed Attestations 2 Medical Necessity Statement*: Per cardiology and hospitalist Time Spent in Patient Care: 16 - 35 minutes (>than 50% of time sp ent in counselling and/or direct pt care on unit) . Coding Level of Care Code Acute Code for [facility] Diagnoses Acute kidney injury N17.9
--- NOTE | 2025-04-23 13:42 | P.PN_ITS ---
Subjective 2 Subjective: cr 1.6 today he states he feels really good Vitals/I&O/Wt Last Vital Signs Temp 98.2 F 04/23/25 08:30 Pulse 84 04/23/25 11:30 Resp 14 04/23/25 11:30 BP 119/88 04/23/25 11:30 Pulse Ox 90 04/23/25 11:30 O2 Del Method Room Air 04/23/25 08:22 04/22/25 04/23/25 04/23/25 22:59 06:59 14:59 Intake Total 1333.333 / 2171.333 120 / 2291.333 460 / 460 Output Total 975 / 1275 875 / 2150 275 / 275 Balance 358.333 / 896.333 -755 / 141.333 185 / 185 Weight last 48 hrs Weight 97.6 kg Weight 97.46 kg Physical Exam 2 Const: COMMON NORMALS: no acute distress Resp: COMMON NORMALS: normal respiratory effort, No retractions, No use of accessory muscles and clear to auscultation bilaterally AUSCULTATION: clear to auscultation bilaterally Cardio: COMMON NORMALS: regular rate, regular rhythm, S1 normal heart sound present and S2 normal heart sound present RATE: regular rate RHYTHM: r egular rhythm HEART SOUNDS: S1 normal heart sound present and S2 normal heart sound present GI: COMMON NORMALS: Normal to inspection, nondistended, normoactive bowel sounds present and non-tender Extremity: COMMON NORMALS: no pedal edema Psych: COMMON NORMALS: mental status grossly normal Urinary Catheter Management: Wolfe: Cath Placed During This Visit: yes, but has since been removed by the nurse Reason for Continuing Indwelling Catheter: Accurate Measurement of Urinary Output in Critically Ill Patients Urinary Catheter Date of Insertion: 04/16/25 Urinary Catheter Time of Insertion: 20:56 Date Urinary Catheter Removed: 04/17/25 Data 04/23/25 04:39 04/23/25 04:39 A&P Assessment and plan 1. Cardiogenic shock: 2. Atrial fibrillation with rapid ventricular response: 3. Ischemic cardiomyopathy: 4. Systolic CHF: 5. Acute kidney injury: 6. NSTEMI (non-ST elevated myocardial infarction): 7. Acute hypoxic respiratory failure: 8. Coronary artery disease status post coronary stent insertion: Plan: Acute hypoxic respiratory failure - Multifactorial - From systolic CHF exacerbation, pulm edema, fluid overload - From A-fib with RVR -Recently had a CT angiogram of the chest was negative for PE 03/04/2025 CT/CT angio chest PE protcl [id number] IMPRESSION: 1. No pulmonary embolism. 2. Marked enlargement of the LEFT heart including the ventricle and LEFT atrium. 3. Diffuse hazy attenuation throughout both lungs. Likely this is interstitial edema. Pneumonitis may appear similar. 4. Mediastinal and hilar mildly enlarged lymph nodes. Reactive lymphadenopathy suspected. 5. Prior gastric bypass. Plan - Monitor respiratory status closely - ABG - Amiodarone drip with amiodarone bolus, de-escalated to p.o. amiodarone - Therapeutic Lovenox - Lasix 40 IV twice daily, with albumin twice daily, metolazone - Levophed, maintain MAP in the 75 - DuoNeb as needed - BiPAP as needed - DNR, does not want CPR, does not want cardioversion, okay to with drugs per ACLS - Okay with elective intubation if required Systolic CHF 03/2025 CONCLUSIONS Severe diffuse hypokinesis of the left ventricular ejection fraction of around 16%. Moderately dilated LV cavity. Mildly increased right ventricular size. Mildly decreased right ventricular systolic function. Mildly increased right atrial size. Moderately increased left atrial size. Thickened mitral valve. Mild-moderate mitral valve regurgitation. Thickened aortic valve. Trace tricuspid valve regurgitation. Trace pulmonary valve regurgitation. Compared to the study from 01/04/2022, there is a significant drop in the left ventricular ejection fraction from 55 - 60% to 16% Patient was found to be tachycardic(atrial fibrillation with rapid ventricular rate) during the study. The ejection fraction estimation could be misleading because of the tachycardia - Cardiology consulted NSTEMI -Currently EKG no acute ST-T wave changes, no chest pain - Type I versus type II -Serial EKGs, serial troponins, telemetry monitoring - Aspirin, statin - Repeat cardiac echo, pending - Therapeutic Lovenox Acute kidney injury - Recent history of CT angiogram of chest, possible: Contrast-induced nephropathy - Concerns for cardiorenal syndrome Atrial fibrillation with rapid ventricular response - Amiodarone drip, p.o. amiodarone - Therapeutic Lovenox Cardiogenic shock - Multifactorial from systolic CHF, concern for ischemic cardiomyopathy, NSTEMI - Start Levophed - Can consider dobutamine however high risk of tachyarrhythmia with patient's current A-fib with RVR Acute cholecystitis? US/US abdomen complete* [id number] IMPRESSION: 1. Technically difficult exam. 2. Cholelithiasis with gallbladder wall thickening raising concern for acute cholecystitis. Recommend clinical correlation. 3. Mild hepatomegaly. Indeterminate echogenic tissue at the liver margin where it impression abuts the right kidney. Recommend liver protocol MRI for further characterization. 4. Mildly atrophic left kidney with mild cortical thinning and increased cortical echogenicity, suggestive of chronic medical renal disease. No hydronephrosis bilaterally. CT scan abdomen pelvis CT/CT abdomen pelvis wo con [id number] IMPRESSION: 1. Ascites and bilateral pleural effusions. Anasarca. 2. Cholelithiasis 3. Status post appendectomy. 4. Status post lap band 5. Significant coronary artery calcifications. -AST 147, ALT 144, GGT 52, lipase 38, alk phos 79 -Acute cholecystitis with cholelithiasis versus congestive hepatopathy from severe cardiomyopathy -Clinically no right upper quadrant abdominal pain per se, no nausea, no vomiting Plan -Continue ciprofloxacin, continue Flagyl -Continue serial abdominal exams -Monitor LFTs Type 2 diabetes mellitus, low-dose sliding scale Abdominal pain, ultrasound abdomen, LFTs Lovenox for DVT prophylaxis DNR, okay with elective intubation if required Prognosis is guarded, status is stable Plan for today continue IV antibiotics, continue IV diuresis, 04/20/2025 Seen this morning. Elevated liver enzymes most likely secondary to congestive hepatopathy however acute cholecystitis cannot be ruled out. Patient going for cardiac cath in a.m. AST 37, ALT 116. Total bilirubin 1.3. Gallbladder wall thickening measuring up to 8 mm in thickness. Visible gallstones. Biliary ducts nondilated common duct measures 0.5 cm gail hepatis. Consult general surgery. Ciprofloxacin and metronidazole. Switch to Zosyn. Patient's EF is 10%. Plan for cardiac cath in AM. Cardiology following Continue amiodarone 400 twice daily Patient on IV albumin every 12 hours. Creatinine 1.7. BNP 7192. N.p.o. at midnight tonight. Hold Entresto, spironolactone. Eliquis being held at this time. Will discuss further plan with cardiology. Continue to monitor in ICU. 04/21/2025 coronary angiogram deferred today creatnine 2.0 this am nephrology following cardiology following continue amiodarone 400 BID continue to hold eliquis continue to monitor BMP daily pt 7L negative since admission. 04/22/2025 Status post 4 drug-eluting stents Aspirin Plavix a day Starting tomorrow Eliquis with Plavix. Per cardiology Patient on Cipro and Flagyl. Today is day 5. Complete 5 days. Most likely had congestive hepatopathy. Appreciate general surgery consultation. Continue to monitor kidney function. Patient is at high risk of contrast- induced nephropathy. Nephrology following. Continue normal saline 50 cc/h. Appreciate cardiology and nephrology recommendations. 04/23/2025 Status post 4 drug-eluting stents continue Plavix and Eliquis. Per cardiology Patient has completed Cipro and Flagyl for 5 days. Creatinine 1.6 today. Nephrology following IV fluids have been stopped Continue to monitor in hospital today. If patient does well by tomorrow may consider discharge per cardiology. Transfer to [facility].. PDMP PDMP Reviewed: Not Reviewed Attestations 2 Medical Necessity Statement*: Status post left heart cath with 4 drug-eluting stents. Diagnoses Cardiogenic shock R57.0 Atrial fibrillation with rapid ventricular response I48.91 Ischemic cardiomyopathy I25.5 Systolic CHF I50.20 Acute kidney injury N17.9 NSTEMI (non-ST elevated myocardial infarction) I21.4 Acute hypoxic respiratory failure J96.01 Coronary artery disease status post coronary stent insertion I25.10; Z95.5
[2025-04-23] MEDS: pantoprazole 40 mg SDV IVP (17:20)
[2025-04-24] VITALS (14 sets, daily range): BP systolic 110–133; BP diastolic 70–87; PULSE 76–88; RESP 16–18; TEMP 36.5–37.2; O2SAT 94–98
[2025-04-24 05:05] LABS: Hematocrit 36.8 % (37-53); Hemoglobin 12.10 g/dL (11.27-16.99); Mean Corpuscular HGB Conc 32.9 g/dL (30-55); Mean Corpuscular Hemoglobin 28.7 pg (27-33); Mean Corpuscular Volume 87.2 fl (82-101); Nucleated Red Blood Cells % 0 %; Platelet Count 219 10^3/cmm (157-399); Red Blood Count 4.22 10^6/uL (3.85-5.65); White Blood Count 8.91 10^3/uL (3.29-11.43)
[2025-04-24] MEDS: FUROsemide 10 mg/mL SDV 4mL 40 MG IVP ×2 (05:15→16:46)
[2025-04-24 05:51] LABS: Alanine Aminotransferase 36 U/L (0-41); Albumin Level 4.8 g/dL (3.5-5.2); Alkaline Phosphatase 55 U/L (40-130); Anion Gap 22.5 (5-19); Aspartate Amino Transferase 17 U/L (0-40); Blood Urea Nitrogen 52 mg/dL (6-20); Calcium 9.9 mg/dL (8.5-10.5); Carbon Dioxide 23 mmol/L (22-29); Chloride 94 mmol/L (98-107); Creatinine Clr Calc Pharmacy 58.0458; Globulin 2.8 g/dL (1.3-4.6); Glucose 182 mg/dL (65-115); Magnesium 2.2 mg/dL (1.7-2.3); Osmolality Calculated 301 mOsm/kg (285-295); Potassium 3.5 mmol/L (3.5-5.1); Sodium 136 mmol/L (136-145); Total Protein 7.6 g/dL (6.6-8.7)
[2025-04-24] MEDS: albumin 25 G/100 ML BAG 60 G IV (06:51)
--- NOTE | 2025-04-24 06:58 | PM.PN ---
Subjective Subjective: The patient was seen and examined. The patient feels well no nausea vomiting shortness of breath chest pain headaches or diarrhea. The patient is looking forward to going home Medications: Reviewed: Yes Medication Review Details: Current Medications Acetaminophen (Acetaminophen 325 Mg Tablet) 650 mg PO Q6H PRN PRN Reason: Mild/Mod Pain Or Temp >/= 101 Amiodarone HCl (Amiodarone 200 Mg Tablet) 400 mg PO Q12H [facility] Last Admin: 04/24/25 05:15 Dose: 400 mg Apixaban (Apixaban 5 Mg Tablet) 5 mg PO BID@0900,2100 [facility] Last Admin: 04/23/25 20:15 Dose: 5 mg Atropine Sulfate (Atropine 1 Mg/Ml Sdv 1 Ml) 0.5 mg IVP PRN PRN PRN Reason: Symptomatic bradycardia Clopidogrel Bisulfate (Clopidogrel 75 Mg Tablet) 75 mg PO DAILY [facility] Last Admin: 04/23/25 08:42 Dose: 75 mg Furosemide (Furosemide 10 Mg/Ml Sdv 4ml) 40 mg IVP Q12H [facility] Last Admin: 04/24/25 05:15 Dose: 40 mg Glucagon (Glucagon 1 Mg/Ml Kit 1 Ml) 1 mg IM ONCE PRN; Protocol PRN Reason: Adult Acute Hypoglycemia Nursing Prot. Dextrose (D5w) 500 mls @ 0 mls/hr IV ONCE PRN; Protocol PRN Reason: Adult Acute Hypoglycemia Prot Dextrose (D10w) 125 mls @ 750 mls/hr IV PRN PRN; Protocol PRN Reason: Adult Acute Hypoglycemia Nursing Protocol Dextrose (D10w) 250 mls @ 1,000 mls/hr IV PRN PRN; Protocol PRN Reason: Adult Acute Hypoglycemia Nursing Protocol Albumin Human (Albumin) 25 g in 100 mls @ 60 mls/hr IV Q12H [facility] Last Admin: 04/24/25 06:51 Dose: 60 mls/hr Insulin Human Lispro (Insulin Lispro 100 Unit/1 Ml) 0 unit SUBCUT TIDWM [facility]; Protocol Last Admin: 04/23/25 17:20 Dose: 6 unit Metoclopramide HCl (Metoclopramide 5 Mg/Ml Sdv 2 Ml) 5 mg IVP Q6H PRN PRN Reason: NAUSEA AND VOMITING Last Admin: 04/19/25 17:17 Dose: 5 mg Naloxone HCl (Naloxone 0.4 Mg/Ml Sdv) 0.1 mg IVP Q2M PRN PRN Reason: OPIATERV Nitroglycerin (Nitroglycerin 0.4 Mg Sublingual Tablet) 0.4 mg SUBLINGUAL Q5M PRN PRN Reason: CHEST PAIN Ondansetron HCl (Ondansetron 2 Mg/Ml Sdv 2 Ml) 4 mg IVP Q8H PRN PRN Reason: vomiting, or N/V if npo Last Admin: 04/19/25 22:59 Dose: 4 mg Pantoprazole Sodium (Pantoprazole 40 Mg Sdv) 40 mg IVP Q24H [facility] Last Admin: 04/23/25 17:20 Dose: 40 mg Temazepam (Temazepam 15 Mg Capsule) 15 mg PO BEDTIME PRN PRN Reason: INSOMNIA Vitals/I&O/Wt Last Vital Signs Temp 97.8 F 04/24/25 06:00 Pulse 80 04/24/25 06:00 Resp 17 04/24/25 06:00 BP 119/77 04/24/25 06:00 Pulse Ox 97 04/24/25 06:00 O2 Del Method Room Air 04/24/25 06:00 04/23/25 04/23/25 04/24/25 14:59 22:59 06:59 Intake Total 940 / 940 340 / 1280 120 / 1400 Output Total 275 / 275 325 / 600 400 / 1000 Balance 665 / 665 15 / 680 -280 / 400 Weight last 48 hrs Weight 93.582 kg Weight 97.6 kg Physical Exam Narrative: Obese man in bed no apparent distress Vital signs noted and stable. HEENT normocephalic atraumatic. neck Supple Lungs are clear bilaterally Heart irregularly irregular Abdomen soft nontender nondistended positive bowel sounds. Extremities: Left lower extremity trace edema. Right-sided above-knee amputation Neuro awake alert oriented x 3 Urinary Catheter Management: Wolfe: Cath Placed During This Visit: yes, but has since been removed by the nurse Reason for Continuing Indwelling Catheter: Accurate Measurement of Urinary Output in Critically Ill Patients Urinary Catheter Date of Insertion: 04/16/25 Urinary Catheter Time of Insertion: 20:56 Date Urinary Catheter Removed: 04/17/25 Data 04/24/25 04:10 04/24/25 04:10 A&P Assessment and plan 1. Acute kidney injury: 59 yr old Male history of A-fib, diabetes hypertension, peripheral vascular disease with above-knee amputation patient was admitted on April 17, 2025 with shortness of breath A-fib and cardiogenic shock started on IV albumin and IV Lasix. Admission creatinine was 1.5 mg/dL that is since increased around 2 mg/dL. Renal seeing the patient for acute kidney injury that is felt to be due to cardiorenal syndrome. We do not have any recent creatinines prior to this admission. Renal ultrasound reviewed right kidney 9.5 cm normal size no obstruction left kidney 10.4 cm also normal size. Urinalysis on admission dark yellow 2+ protein 1+ urobilinogen no blood Patient is status post cardiac stents in April 22, 2025. Renal function is stable status postcardiac catheterization Monitor renal function. Presumed diagnosis is cardiorenal syndrome. 2. Heart failure reduced EF -patient has an EF of 10 to 15% treatment as per cardiology, will need to slowly start goal-directed medical therapy. Will consider either starting ARB/Entresto or an SGLT2 inhibitor. Will consider decreasing furosemide to oral dose Repeat chemistries tomorrow morning. Medications reviewed Patient seen and examined with aid of of a nurse using audiovisual equipment. Patient consented to telehealth. Patient will need outpatient renal follow-up Plan: As above PDMP PDMP Reviewed: Not Reviewed Attestations Medical Necessity Statement*: Per cardiology and hospitalist Time Spent in Patient Care: 16 - 35 minutes (>than 50% of time spent in counselling and/or direct pt care on unit). Coding Level of Care Code [facility] Diagnoses Acute kidney injury N17.9
--- NOTE | 2025-04-24 10:00 | PC.SOCIAL ---
IMM Updated Updated pt on IMM. No questions voiced. Provided pt a copy. Initialed, dated, & timed copy in chart.
--- NOTE | 2025-04-24 11:00 | P.PN_ITS ---
<Statement entered by Isaiah Barr M.D - 04/28/25 08:08> Patient was cared for in conjunction with an advanced practice practitioner.? I reviewed the chart and all pertinent data including imaging, telemetry, and laboratory results.? I discussed the patient in detail with the advanced practice practitioner.? Please see?their note for progress note, testing results and agreed upon plan of care for the patient. Subjective 2 Subjective: He is feeling well, no events overnight. Creatinine improved to 1.7. No chest pain or shortness of breath. Vitals/I&O/Wt Last Vital Signs Temp 98.9 F 04/24/25 13:33 Pulse 83 04/24/25 13:33 Resp 18 04/24/25 13:33 BP 130/82 04/24/25 13:33 Pulse Ox 96 04/24/25 13:33 O2 Del Method Room Air 04/24/25 06:00 04/24/25 04/24/25 04/24/25 06:59 14:59 22:59 Intake Total 120 / 1400 2705.334 / 2705.334 Output Total 400 / 1000 1500 / 1500 Balance -280 / 400 1205.334 / 1205.334 Weight last 48 hrs Weight 206 lb 5 oz Weight 215 lb 2.738 oz Physical Exam 2 Const: COMMON NORMALS: no acute distress and patient oriented x3 GENERAL APPEARANCE: cooperative ORIENTATION/CONSCIOUSNESS: Yes awake, Yes oriented to person, Yes oriented to place and Yes oriented to time Chest: COMMONS NORMALS: normal inspection of the chest and normal palpation of entire chest wall CHEST: Yes Symmetrical chest wall rise Resp: COMMON NORMALS: normal respiratory effort, No retractions and No use of accessory muscles AUSCULTATION: crackles (bases) Laterality: bilateral and posterior Cardio: COMMON NORMALS: regular rate, regular rhythm, S1 normal heart sound present, S2 normal heart sound present, No gallops present (Cardio), No clicks present (Cardio), No murmurs present (Cardio) and No rub (Cardio) RATE: r egular rate RHYTHM: regular rhythm HEART SOUNDS: S1 normal heart sound present and S2 normal heart sound present PERIPHERAL PULSES: radial pulses present positive right 2+ and femoral pulses present positive right 2+ Extremity: NARRATIVE EXTREMITY EXAM: Right AKA Neuro: COMMON NORMALS: patient oriented x3 and moves all extremities S ENSORIUM/ORIENTATION: Yes oriented to person, Yes oriented to place and Yes oriented to time Skin: WOUNDS: Yes surgical site (no hematoma palpable) Details: no odor Urinary Catheter Management: Wolfe: Cath Placed During This Visit: yes, but has since been removed by the nurse Reason for Continuing Indwelling Catheter: Accurate Measurement of Urinary Output in Critically Ill Patients Urinary Catheter Date of Insertion: 04/16/25 Urinary Catheter Time of Insertion: 20:56 Date Urinary Catheter Removed: 04/17/25 Data 04/24/25 04:10 04/24/25 04:10 A&P Assessment and plan 1. NSTEMI (non-ST elevated myocardial infarction): 2. CAD (coronary artery disease): 3. Systolic CHF: 4. Atrial fibrillation with rapid ventricular response: 5. Acute renal insufficiency: 6. Diabetes: Plan: Reviewed nephrology's note. Plan is to eventually switch to oral diuretics. Diuretics were held due to coronary angiogram, he was given a dose of Lasix this morning, I note crackles in the bases bilaterally. Once blood pressure and renal function allows would like to restart Entresto, perhaps add Jardiance. Would not recommend restarting spironolactone at this time. Continue Eliquis 5 mg, Plavix. He received his LifeVest. May discharge home tomorrow if okay with nephrology and hospitalist service. PDMP PDMP Reviewed: Not Reviewed Attestations 2 Medical Necessity Statement*: Probable discharge home tomorrow Coding Level of Care Code Acute Code for [facility] Diagnoses NSTEMI (non-ST elevated myocardial infarction) I21.4 CAD (coronary artery disease) I25.10 Systolic CHF I50.20 Atrial fibrillation with rapid ventricular response I48.91 Acute renal insufficiency N28.9 Diabetes E11.9
--- NOTE | 2025-04-24 12:46 | P.PN_ITS ---
Subjective 2 Subjective: Seen this morning. Creatinine 1.7 No acute events overnight Patient is awaiting LifeVest. Appears slightly fluid overloaded. Vitals/I&O/Wt Last Vital Signs Temp 98.3 F 04/24/25 11:50 Pulse 81 04/24/25 11:50 Resp 16 04/24/25 11:50 BP 121/79 04/24/25 11:50 Pulse Ox 98 04/24/25 11:50 O2 Del Method Room Air 04/24/25 06:00 04/23/25 04/24/25 04/24/25 22:59 06:59 14:59 Intake Total 340 / 1280 120 / 1400 2345.334 / 2345.334 Output Total 325 / 600 400 / 1000 800 / 800 Balance 15 / 680 -280 / 400 1545.334 / 1545.334 Weight last 48 hrs Weight 93.582 kg Weight 97.6 kg Physical Exam 2 Const: COMMON NORMALS: no acute distress Resp: COMMON NORMALS: normal respiratory effort, No retractions, No use of accessory muscles and clear to auscultation bilaterally (Crackles bilaterally at bases) AUSCULTATION: clear to auscultation bilaterally (Crackles bilaterally at bases) Cardio: COMMON NORMALS: regular rate, regular rhythm, S1 normal heart sound present and S2 normal heart sound present RATE: regular rate RHYTHM: r egular rhythm HEART SOUNDS: S1 normal heart sound present and S2 normal heart sound present GI: COMMON NORMALS: Normal to inspection, nondistended, normoactive bowel sounds present and non-tender Extremity: COMMON NORMALS: no pedal edema Psych: COMMON NORMALS: mental status grossly normal Urinary Catheter Management: Wolfe: Cath Placed During This Visit: yes, but has since been removed by the nurse Reason for Continuing Indwelling Catheter: Accurate Measurement of Urinary Output in Critically Ill Patients Urinary Catheter Date of Insertion: 04/16/25 Urinary Catheter Time of Insertion: 20:56 Date Urinary Catheter Removed: 04/17/25 Data 04/24/25 04:10 04/24/25 04:10 A&P Assessment and plan 1. Cardiogenic shock: 2. Atrial fibrillation with rapid ventricular response: 3. Ischemic cardiomyopathy: 4. Systolic CHF: 5. Acute kidney injury: 6. NSTEMI (non-ST elevated myocardial infarction): 7. Acute hypoxic respiratory failure: 8. Coronary artery disease status post coronary stent insertion: Plan: Acute hypoxic respiratory failure - Multifactorial - From systolic CHF exacerbation, pulm edema, fluid overload - From A-fib with RVR -Recently had a CT angiogram of the chest was negative for PE 03/04/2025 CT/CT angio chest PE protcl [id number] IMPRESSION: 1. No pulmonary embolism. 2. Marked enlargement of the LEFT heart including the ventricle and LEFT atrium. 3. Diffuse hazy attenuation throughout both lungs. Likely this is interstitial edema. Pneumonitis may appear similar. 4. Mediastinal and hilar mildly enlarged lymph nodes. Reactive lymphadenopathy suspected. 5. Prior gastric bypass. Plan - Monitor respiratory status closely - ABG - Amiodarone drip with amiodarone bolus, de-escalated to p.o. amiodarone - Therapeutic Lovenox - Lasix 40 IV twice daily, with albumin twice daily, metolazone - Levophed, maintain MAP in the 75 - DuoNeb as needed - BiPAP as needed - DNR, does not want CPR, does not want cardioversion, okay to with drugs per ACLS - Okay with elective intubation if required Systolic CHF 03/2025 CONCLUSIONS Severe diffuse hypokinesis of the left ventricular ejection fraction of around 16%. Moderately dilated LV cavity. Mildly increased right ventricular size. Mildly decreased right ventricular systolic function. Mildly increased right atrial size. Moderately increased left atrial size. Thickened mitral valve. Mild-moderate mitral valve regurgitation. Thickened aortic valve. Trace tricuspid valve regurgitation. Trace pulmonary valve regurgitation. Compared to the study from 01/04/2022, there is a significant drop in the left ventricular ejection fraction from 55 - 60% to 16% Patient was found to be tachycardic(atrial fibrillation with rapid ventricular rate) during the study. The ejection fraction estimation could be misleading because of the tachycardia - Cardiology consulted NSTEMI -Currently EKG no acute ST-T wave changes, no chest pain - Type I versus type II -Serial EKGs, serial troponins, telemetry monitoring - Aspirin, statin - Repeat cardiac echo, pending - Therapeutic Lovenox Acute kidney injury - Recent history of CT angiogram of chest, possible: Contrast-induced nephropathy - Concerns for cardiorenal syndrome Atrial fibrillation with rapid ventricular response - Amiodarone drip, p.o. amiodarone - Therapeutic Lovenox Cardiogenic shock - Multifactorial from systolic CHF, concern for ischemic cardiomyopathy, NSTEMI - Start Levophed - Can consider dobutamine however high risk of tachyarrhythmia with patient's current A-fib with RVR Acute cholecystitis? US/US abdomen complete* [id number] IMPRESSION: 1. Technically difficult exam. 2. Cholelithiasis with gallbladder wall thickening raising concern for acute cholecystitis. Recommend clinical correlation. 3. Mild hepatomegaly. Indeterminate echogenic tissue at the liver margin where it impression abuts the right kidney. Recommend liver protocol MRI for further characterization. 4. Mildly atrophic left kidney with mild cortical thinning and increased cortical echogenicity, suggestive of chronic medical renal disease. No hydronephrosis bilaterally. CT scan abdomen pelvis CT/CT abdomen pelvis wo con [id number] IMPRESSION: 1. Ascites and bilateral pleural effusions. Anasarca. 2. Cholelithiasis 3. Status post appendectomy. 4. Status post lap band 5. Significant coronary artery calcifications. -AST 147, ALT 144, GGT 52, lipase 38, alk phos 79 -Acute cholecystitis with cholelithiasis versus congestive hepatopathy from severe cardiomyopathy -Clinically no right upper quadrant abdominal pain per se, no nausea, no vomiting Plan -Continue ciprofloxacin, continue Flagyl -Continue serial abdominal exams -Monitor LFTs Type 2 diabetes mellitus, low-dose sliding scale Abdominal pain, ultrasound abdomen, LFTs Lovenox for DVT prophylaxis DNR, okay with elective intubation if required Prognosis is guarded, status is stable Plan for today continue IV antibiotics, continue IV diuresis, 04/20/2025 Seen this morning. Elevated liver enzymes most likely secondary to congestive hepatopathy however acute cholecystitis cannot be ruled out. Patient going for cardiac cath in a.m. AST 37, ALT 116. Total bilirubin 1.3. Gallbladder wall thickening measuring up to 8 mm in thickness. Visible gallstones. Biliary ducts nondilated common duct measures 0.5 cm gail hepatis. Consult general surgery. Ciprofloxacin and metronidazole. Switch to Zosyn. Patient's EF is 10%. Plan for cardiac cath in AM. Cardiology following Continue amiodarone 400 twice daily Patient on IV albumin every 12 hours. Creatinine 1.7. BNP 7192. N.p.o. at midnight tonight. Hold Entresto, spironolactone. Eliquis being held at this time. Will discuss further plan with cardiology. Continue to monitor in ICU. 04/21/2025 coronary angiogram deferred today creatnine 2.0 this am nephrology following cardiology following continue amiodarone 400 BID continue to hold eliquis continue to monitor BMP daily pt 7L negative since admission. 04/22/2025 Status post 4 drug-eluting stents Aspirin Plavix a day Starting tomorrow Eliquis with Plavix. Per cardiology Patient on Cipro and Flagyl. Today is day 5. Complete 5 days. Most likely had congestive hepatopathy. Appreciate general surgery consultation. Continue to monitor kidney function. Patient is at high risk of contrast- induced nephropathy. Nephrology following. Continue normal saline 50 cc/h. Appreciate cardiology and nephrology recommendations. 04/23/2025 Status post 4 drug-eluting stents continue Plavix and Eliquis. Per cardiology Patient has completed Cipro and Flagyl for 5 days. Creatinine 1.6 today. Nephrology following IV fluids have been stopped Continue to monitor in hospital today. If patient does well by tomorrow may consider discharge per cardiology. Transfer to [facility].. 04/24/2025 Continue IV diuresis with Lasix 40 IV twice daily Continue Eliquis, Plavix Check labs in a.m. Patient awaiting LifeVest. Cardiology and nephrology recommendations appreciated. PDMP PDMP Reviewed: Not Reviewed Attestations 2 Medical Necessity Statement*: Requires IV diuresis status post cath. Awaiting LifeVest as well. Diagnoses Cardiogenic shock R57.0 Atrial fibrillation with rapid ventricular response I48.91 Ischemic cardiomyopathy I25.5 Systolic CHF I50.20 Acute kidney injury N17.9 NSTEMI (non-ST elevated myocardial infarction) I21.4 Acute hypoxic respiratory failure J96.01 Coronary artery disease status post coronary stent insertion I25.10; Z95.5
[2025-04-24] MEDS: pantoprazole 40 mg SDV IVP (16:46)
[2025-04-25 04:00] VITALS: BP 136/79; PULSE 80; RESP 18; TEMP 36.7; O2SAT 97
[2025-04-25 04:08] LABS: Hematocrit 37.2 % (37-53); Hemoglobin 12.20 g/dL (11.27-16.99); Mean Corpuscular HGB Conc 32.8 g/dL (30-55); Mean Corpuscular Hemoglobin 28.6 pg (27-33); Mean Corpuscular Volume 87.1 fl (82-101); Nucleated Red Blood Cells % 0 %; Platelet Count 226 10^3/cmm (157-399); Red Blood Count 4.27 10^6/uL (3.85-5.65); White Blood Count 8.82 10^3/uL (3.29-11.43)
[2025-04-25 04:29] LABS: Alanine Aminotransferase 35 U/L (0-41); Albumin Level 4.9 g/dL (3.5-5.2); Alkaline Phosphatase 60 U/L (40-130); Anion Gap 19.8 (5-19); Aspartate Amino Transferase 19 U/L (0-40); Blood Urea Nitrogen 54 mg/dL (6-20); Calcium 10.3 mg/dL (8.5-10.5); Carbon Dioxide 27 mmol/L (22-29); Chloride 94 mmol/L (98-107); Creatinine Clr Calc Pharmacy 64.5500; Globulin 3.1 g/dL (1.3-4.6); Glucose 227 mg/dL (65-115); Magnesium 2.1 mg/dL (1.7-2.3); Osmolality Calculated 306 mOsm/kg (285-295); Potassium 3.8 mmol/L (3.5-5.1); Sodium 137 mmol/L (136-145); Total Protein 8.0 g/dL (6.6-8.7)
[2025-04-25] MEDS: FUROsemide 10 mg/mL SDV 4mL 40 MG IVP (05:18)
[2025-04-25 07:35] VITALS: BP 127/75; PULSE 81; RESP 17; TEMP 36.4; O2SAT 96
--- NOTE | 2025-04-25 09:52 | P.PN_ITS ---
Vitals/I&O/Wt Last Vital Signs Temp 97.6 F 04/25/25 07:35 Pulse 81 04/25/25 07:35 Resp 17 04/25/25 07:35 BP 127/75 04/25/25 07:35 Pulse Ox 96 04/25/25 07:35 O2 Del Method Room Air 04/25/25 07:35 04/24/25 04/25/25 04/25/25 22:59 06:59 14:59 Intake Total 240 / 2945.334 480 / 3425.334 360 / 360 Output Total 1125 / 2625 950 / 3575 650 / 650 Balance -885 / 320.334 -470 / -149.666 -290 / -290 Weight last 48 hrs Weight 200 lb 3.2 oz Weight 206 lb 5 oz Physical Exam 2 Urinary Catheter Management: Wolfe: Cath Placed During This Visit: yes, but has since been removed by the nurse Reason for Continuing Indwelling Catheter: Accurate Measurement of Urinary Output in Critically Ill Patients Urinary Catheter Date of Insertion: 04/16/25 Urinary Catheter Time of Insertion: 20:56 Date Urinary Catheter Removed: 04/17/25 Data 04/25/25 03:12 04/25/25 03:12 A&P PDMP PDMP Reviewed: Not Reviewed Coding Level of Care Code Acute Code for [facility]
--- NOTE | 2025-04-25 11:21 | P.PN_ITS ---
Subjective 2 Subjective: no new c/o Medications: Reviewed: Yes Vitals/I&O/Wt Last Vital Signs Temp 97.6 F 04/25/25 07:35 Pulse 81 04/25/25 07:35 Resp 17 04/25/25 07:35 BP 127/75 04/25/25 07:35 Pulse Ox 96 04/25/25 07:35 O2 Del Method Room Air 04/25/25 07:35 04/24/25 04/25/25 04/25/25 22:59 06:59 14:59 Intake Total 240 / 2945.334 480 / 3425.334 360 / 360 Output Total 1125 / 2625 950 / 3575 650 / 650 Balance -885 / 320.334 -470 / -149.666 -290 / -290 Weight last 48 hrs Weight 90.809 kg Weight 93.582 kg Physical Exam 2 Narrative: Obese man in bed no apparent distress Vital signs noted and stable. HEENT normocephalic atraumatic. neck Supple Lungs are clear bilaterally Heart irregularly irregular Abdomen soft nontender nondistended positive bowel sounds. Extremities: Left lower extremity trace edema. Right-sided above-knee amputation Neuro awake alert oriented x 3 Urinary Catheter Management: Wolfe: Cath Placed During This Visit: yes, but has since been removed by the nurse Reason for Continuing Indwelling Catheter: Accurate Measurement of Urinary Output in Critically Ill Patients Urinary Catheter Date of Insertion: 04/16/25 Urinary Catheter Time of Insertion: 20:56 Date Urinary Catheter Removed: 04/17/25 Data 04/25/25 03:12 04/25/25 03:12 A&P Assessment and plan 1. Acute kidney injury: 59 yr old Male history of A-fib, diabetes hypertension, peripheral vascular disease with above-knee amputation patient was admitted on April 17, 2025 with shortness of breath A-fib and cardiogenic shock started on IV albumin and IV Lasix. Admission creatinine was 1.5 mg/dL that is since increased around 2 mg/dL. Renal seeing the patient for acute kidney injury that is felt to be due to cardiorenal syndrome. We do not have any recent creatinines prior to this admission. Renal ultrasound reviewed right kidney 9.5 cm normal size no obstruction left kidney 10.4 cm also normal size. Urinalysis on admission dark yellow 2+ protein 1+ urobilinogen no blood Patient is status post cardiac stents in April 22, 2025. Renal function is stable status postcardiac catheterization Monitor renal function. Presumed diagnosis is cardiorenal syndrome. 2. Heart failure reduced EF -patient has an EF of 10 to 15% treatment as per cardiology, will need to slowly start goal-directed medical therapy. Will consider either starting ARB/Entresto or an SGLT2 inhibitor. Will consider decreasing furosemide to oral dose. Medications reviewed Patient seen and examined with aid of of a nurse using audiovisual equipment. Patient consented to telehealth. Patient will need outpatient renal follow-up Plan: As above PDMP PDMP Reviewed: Not Reviewed Attestations 2 Medical Necessity Statement*: per [facility] Coding Level of Care Code Acute Code for [facility] Diagnoses Acute kidney injury N17.9
[2025-04-25 11:30] VITALS: BP 104/73; PULSE 82; RESP 18; TEMP 36.3; O2SAT 98
--- NOTE | 2025-04-25 11:40 | P.DS_ITS ---
Discharge Providers Date of Admission: 04/16/25 16:19 Date of Discharge: April 25, 2025 Attending Provider at Admission: Casey Velazquez MD Attending Provider at Discharge: Michelle Simpson MD Primary Care Provider: Timur Myers MD Diagnoses at Discharge Discharge Diagnosis 1. Acute kidney injury: Reason for Visit Reason for Visit: Rapid HR,sob, Hospital Course Hospital Course Patient initially presented to the hospital with shortness of breath and was found to be in A-fib with RVR and placed on amiodarone drip. Initial echo showed EF of 15% with DALE and BNP over 8000. Prognosis was guarded. Patient was in cardiogenic shock. Once maximally optimized was taken for coronary angiogram and PCI was performed. Patient status post 4 drug-eluting stents.Date of procedure: 04/22/25 Pre-procedure diagnosis: LV dysfunction Post-procedure diagnosis: other (Severe multivessel coronary artery disease) Procedure: Proximal to mid LAD with significant stenosis status post PCI with 3 stents. Critical stenosis of proximal RCA status post PCI with 1 stent. Left circumflex artery is ELECT EQUIP MAINT ENG Dual antiplatelet therapy with aspirin and plavix today. From tomorrow he will be on eliquis and plavix IV fluids. Monitor renal function. Performing Provider: Isaiah Barr Estimated blood loss (mL): 10 Complications: Nephrology was consulted. Creatinine remained stable. Patient was discharged home with a LifeVest to follow-up with cardiology as an outpatient. There was questionable cholecystitis however it was deemed to be secondary to hepatic congestion. General surgery was consulted. Patient did complete Cipro and Flagyl for 5 days. He has to follow-up with primary care doctor as an outpatient. Physical Exam Const: COMMON NORMALS: no acute distress Chest: CHEST: Yes Symmetrical chest wall rise Resp: COMMON NORMALS: normal respiratory effort, No retractions and No use of accessory muscles Cardio: COMMON NORMALS: regular rate, regular rhythm, S1 normal heart sound present and S2 normal heart sound present RATE: regular rate RHYTHM: regular rhythm HEART SOUNDS: S1 normal heart sound present and S2 normal hea rt sound present OTHER: Clear to auscultation b/l GI: COMMON NORMALS: Normal to inspection, nondistended, normoactive bowel sounds present and non-tender Extremity: COMMON NORMALS: no pedal edema Psych: COMMON NORMALS: mental status grossly normal Urinary Catheter Management: Wolfe: Cath Placed During This Visit: yes, but has since been removed by the nurse Reason for Continuing Indwelling Catheter: Accurate Measurement of Urinary Output in Critically Ill Patients Urinary Catheter Date of Insertion: 04/16/25 Urinary Catheter Time of Insertion: 20:56 Date Urinary Catheter Removed: 04/17/25 Discharge Data Studies Completed and Pending Completed Studies During Hospitalization Category Date Time Status CT abdomen pelvis wo con [id number] Routine Cat Scan 04/18/25 12:43 Completed CXRP [XR chest 1V portable [id number]] Routine Exams 04/17/25 06:58 Completed XR chest 1V portable [id number] Stat Exams 04/16/25 14:27 Completed CV renal doppler [id number] Routine Ultrasound 04/21/25 12:54 Completed CV. 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 Cardiomegaly and pulmonary vascular congestion. 2. Satisfactory position of right PICC line. Abdomen/Pelvis CT 04/18/25 12:43 IMPRESSION: 1. Ascites and bilateral pleural effusions. Anasarca. 2. Cholelithiasis 3. Status post appendectomy. 4. Status post lap band 5. Significant coronary artery calcifications. Abdomen Ultrasound 04/18/25 16:30 IMPRESSION: 1. Technically difficult exam. 2. Cholelithiasis with gallbladder wall thickening raising concern for acute cholecystitis. Recommend clinical correlation. 3. Mild hepatomegaly. Indeterminate echogenic tissue at the liver margin where it impression abuts the right kidney. Recommend liver protocol MRI for further characterization. 4. Mildly atrophic left kidney with mild cortical thinning and increased cortical echogenicity, suggestive of chronic medical renal disease. No hydronephrosis bilaterally. Laboratory Results WBC 8.82 10^3/uL (3.29-11.43) 04/25/25 03:12 RBC 4.27 10^6/uL (3.85-5.65) 04/25/25 03:12 Hgb 12.20 g/dL (11.27-16.99) 04/25/25 03:12 Hct 37.2 % (37-53) 04/25/25 03:12 MCV 87.1 fl (82-101) 04/25/25 03:12 MCH 28.6 pg (27-33) 04/25/25 03:12 MCHC 32.8 g/dL (30-55) 04/25/25 03:12 RDW 17.1 % (12.1-15.1) H 04/25/25 03:12 Plt Count 226 10^3/cmm (157-399) 04/25/25 03:12 MPV 9.7 fL (7.4-10.4) 04/25/25 03:12 Neut % (Auto) 77.0 % 04/25/25 03:12 Lymph % (Auto) 12.0 % 04/25/25 03:12 [place] % (Auto) 6.7 % 04/25/25 03:12 Eos % (Auto) 3.3 % 04/25/25 03:12 Baso % (Auto) 0.7 % 04/25/25 03:12 Neut # (Auto) 6.79 10^3/uL (1.8-7.7) 04/25/25 03:12 Lymph # (Auto) 1.1 10^3/uL (0.8-4.8) 04/25/25 03:12 [place] # (Auto) 0.6 10^3/uL (0.2-0.9) 04/25/25 03:12 Eos # (Auto) 0.3 10^3/uL (0.0-0.8) 04/25/25 03:12 Baso # (Auto) 0.1 10^3/uL (0.0-0.1) 04/25/25 03:12 Nucleated RBC % (auto) 0 % 04/25/25 03:12 Nucleated RBCs # 0.0 /100WBC 04/25/25 03:12 PT 19.80 SECONDS (12.1-14.9) H 04/19/25 04:45 INR 1.57 (0.8-1.2) H 04/19/25 04:45 Specimen Type Arterial 04/16/25 16:31 Sample Site Radial, left 04/16/25 16:31 ABG pH 7.45 (7.35-7.45) 04/16/25 16:31 ABG pCO2 23.2 mmHg (35-45) L 04/16/25 16:31 ABG pO2 93.0 mmHg (80.0-100.0) 04/16/25 16:31 ABG PO2/FiO2 Ratio 442 04/16/25 16:31 ABG HCO3 16.3 mmol/L (22-26) L 04/16/25 16:31 ABG O2 Saturation 96.3 04/16/25 16:31 ABG Base Excess -5.8 mmol/L (-2.0-2.0) L 04/16/25 16:31 Maulik Test Pos 04/16/25 16:31 A-a O2 Gradient 3.4 mmHg (5-10) L 04/16/25 16:31 Hematocrit 41.3 % (42-52) L 04/16/25 16:31 Hgb O2 Saturation 96.7 % (95-100) 04/16/25 16:31 Carboxyhemoglobin 0.2 %THgb (0.4-20.1) L 04/16/25 16:31 Methemoglobin < 0.0 % (0.4-1.5) L 04/16/25 16:31 Total Hemoglobin 13.5 g/dL (14-18) L 04/16/25 16:31 Sodium 135.0 mmol/L (131-143) 04/16/25 16:31 Potassium 5.0 mmol/L (3.5-5.0) 04/16/25 16:31 Glucose 204.0 mg/dL (70-115) H 04/16/25 16:31 Ionized Calcium 1.2 mmol/L (1.1-1.4) 04/16/25 16:31 O2 Delivery Device Room air 04/16/25 16:31 FiO2 21.0 % 04/16/25 16:31 Commission Associate ID Cak 04/16/25 16:31 Sodium 137 mmol/L (136-145) 04/25/25 03:12 Potassium 3.8 mmol/L (3.5-5.1) 04/25/25 03:12 Chloride 94 mmol/L (98-107) L 04/25/25 03:12 Carbon Dioxide 27 mmol/L (22-29) 04/25/25 03:12 Anion Gap 19.8 (5-19) H 04/25/25 03:12 BUN 54 mg/dL (6-20) H 04/25/25 03:12 Creatinine 1.5 mg/dL (0.7-1.2) H 04/25/25 03:12 GFR Calculation 48.2 mL/min (90-130) L 04/25/25 03:12 Glucose 227 mg/dL (65-115) H 04/25/25 03:12 POC Glucose 220 mg/dL (70-110) H 04/25/25 10:48 Estimat Average Glucose 137 04/16/25 18:31 Hemoglobin A1c 6.4 % (4.0-6.0) H 04/16/25 18:31 Calculated Osmolality 306 mOsm/kg (285-295) H 04/25/25 03:12 Lactic Acid 2.3 mmol/L (0.5-2.2) H 04/16/25 14:33 Lactic Acid (Sepsis) 2.1 mmol/L (0.5-2.2) 04/16/25 18:31 Calcium 10.3 mg/dL (8.5-10.5) 04/25/25 03:12 Phosphorus 3.0 mg/dL (2.5-4.5) 04/25/25 03:12 Magnesium 2.1 mg/dL (1.7-2.3) 04/25/25 03:12 Total Bilirubin 1.6 mg/dL (0.15-1.2) H 04/25/25 03:12 GGT 52 U/L (8-61) 04/18/25 12:52 AST 19 U/L (0-40) 04/25/25 03:12 ALT 35 U/L (0-41) 04/25/25 03:12 Alkaline Phosphatase 60 U/L (40-130) 04/25/25 03:12 Troponin T Baseline 111 ng/L (0-15) H* 04/16/25 14:33 Troponin T 120 Minute 109.5 ng/L (0-15) H 04/16/25 16:13 Delta Troponin T -1.5 ABS# (0-10) L 04/16/25 16:13 Troponin T Hi Sens 6Hr 211.7 ng/L (0-15) H 04/16/25 20:29 Troponin T Hi Sens 6Hr Delta 100.7 ng/L (0-12) H* 04/16/25 20:29 C-Reactive Protein 8.5 mg/L (0.0-4.9) H 04/18/25 12:52 NT-Pro-B Natriuret Pep 6930 pg/mL (0-125) H 04/22/25 03:36 Total Protein 8.0 g/dL (6.6-8.7) 04/25/25 03:12 Albumin 4.9 g/dL (3.5-5.2) 04/25/25 03:12 Globulin 3.1 g/dL (1.3-4.6) 04/25/25 03:12 Triglycerides 103 mg/dL (0-150) 04/16/25 18:31 Cholesterol 92 mg/dL (0-200) 04/16/25 18:31 LDL Cholesterol, Calc 34 mg/dL (50-129) L 04/16/25 18:31 HDL Cholesterol 37 mg/dL (60-100) L 04/16/25 18:31 LDL/HDL Ratio 0.92 RATIO (0.00-3.22) 04/16/25 18:31 Cholesterol/HDL Ratio 2.49 mg/dL (1.0-5.00) 04/16/25 18:31 Lipase 38 U/L (13-60) 04/18/25 12:52 Procalcitonin 0.16 ng/mL (0-0.5) 04/18/25 12:52 TSH 1.41 uIU/mL (0.27-4.20) 04/16/25 18:31 Urine Color Dark yellow (Yellow) A 04/16/25 20:05 Urine Appearance Clear (CLEAR) 04/16/25 20:05 Urine pH 5.0 (5-7) 04/16/25 20:05 Ur Specific [place] 1.018 (1.005-1.030) 04/16/25 20:05 Urine Protein 2+ (Negative) A 04/16/25 20:05 Urine Glucose (UA) Negative (Normal) 04/16/25 20:05 Urine Ketones Negative (Negative) 04/16/25 20:05 Urine Blood Negative (Negative) 04/16/25 20:05 Urine Nitrate Negative (Negative) 04/16/25 20:05 Urine Bilirubin Negative (Negative) 04/16/25 20:05 Urine Urobilinogen 1.0 mg/dL (Negative) 04/16/25 20:05 Ur Leukocyte Esterase Negative (Negative) 04/16/25 20:05 Urine RBC 0-2 /hpf (0-2) 04/16/25 20:05 Urine WBC 0-5 /hpf (0-5) 04/16/25 20:05 Ur Squamous Epith Cells 0-5 /hpf (0-5) 04/16/25 20:05 Amorphous Sediment Not Reportable 04/16/25 20:05 Urine Bacteria None seen /hpf (NONE) 04/16/25 20:05 Hyaline Casts 12.38 /lpf 04/16/25 20:05 Urine Opiates Screen Negative ng/mL (Negative) 04/16/25 20:05 Ur Barbiturates Screen Negative ng/mL (Negative) 04/16/25 20:05 Ur Phencyclidine Scrn Negative ng/mL (Negative) 04/16/25 20:05 Ur Amphetamines Screen Negative ng/mL (Negative) 04/16/25 20:05 U Benzodiazepines Scrn Negative ng/mL (Negative) 04/16/25 20:05 Urine Cocaine Screen Negative ng/mL (Negative) 04/16/25 20:05 U Marijuana (THC) Screen Negative ng/mL (Negative) 04/16/25 20:05 Ethyl Alcohol < 10 mg/dL (0-10) 04/16/25 18:31 Serum Ketones Negative (Negative) 04/16/25 14:33 Vitals Last Vital Signs Temp 97.6 F 04/25/25 07:35 Pulse 81 04/25/25 07:35 Resp 17 04/25/25 07:35 BP 127/75 04/25/25 07:35 Pulse Ox 96 04/25/25 07:35 O2 Del Method Room Air 04/25/25 07:35 Discharge Plan Discharge Patient Disposition: Home Condition: Stable Prescriptions: New amiodarone [Pacerone] 200 mg Tablet 400 mg PO DAILY Qty: 60 0RF clopidogrel 75 mg Tablet 75 mg PO DAILY Qty: 30 0RF glipizide 2.5 mg tablet 2.5 mg PO DAILY Qty: 30 0RF Continued (DME) Diabetic Shoes with 3 custom inserts See Rx Instructions .Route .MEDSUPPLY Qty: 1 0RF Rx Instructions: As directed to Cj Apple oxybutynin chloride 10 mg tablet extended release 24hr 10 mg PO DAILY tamsulosin 0.4 mg capsule 0.4 mg PO DAILY Repatha SureClick 140 mg/mL pen injector 140 mg SUBCUT Q14D Eliquis 5 mg tablet 5 mg PO BID Qty: 60 0RF Changed furosemide 40 mg tablet 40 mg PO DAILY 30 Days Qty: 30 0RF metoprolol succinate 25 mg tablet extended release 24 hr 25 mg PO DAILY Qty: 30 0RF potassium chloride 10 mEq tablet extended release 20 meq PO DAILY Qty: 30 0RF Held Entresto 49-51 mg tablet 1 tab PO BID Hold Instructions: see cardiology Ozempic 2 mg/dose (8 mg/3 mL) pen injector 2 mg SUBCUT Q7D Hold Instructions: see pcp Discontinued glipizide 10 mg Tablet 10 mg PO DAILY spironolactone 25 mg tablet 25 mg PO DAILY metformin 1,000 mg tablet 1,000 mg PO BID Patient Comments: Patient states doctor told him to stop taking Discharge Order = DC NOW: Discharge Order (Routine); Ordered 04/25/25 Ordered By: Michelle Simpson Other Ambulatory Orders: Basic Metabolic Panel (Routine) Timeframe: 4 Days Facility: [facility] - Location: Lab - Main Lab Ordered By: Michelle Simpson Complete Blood Count w/Auto (Routine) Timeframe: 4 Days Location: Determined by Patient Ordered By: Michelle Simpson Referrals: Isaiah Barr M.D [Physician, Cardiology] - 1 month Referral Note: We have notified your physician's clinic of the need for a follow-up appointment to be scheduled. If you have not heard from them within the next 2 business days, please call them directly. Tarsha Ambriz FNP [Nurse Practitioner, Cardiology] - 4-7 days Referral Note: We have notified your physician's clinic of the need for a follow-up appointment to be scheduled. If you have not heard from them within the next 2 business days, please call them directly. Timur Myers MD [Primary Care Provider, Family Practice] - 1-3 days Referral Note: Please contact primary care provider Sunday morning to schedule a hospital follow up appointment within 1 week of hospital discharge. Discharge Diet: Cardiac and Diabetic Discharge Activity: Limit activity as instructed Patient Instructions: Glipizide (By mouth), Amiodarone (By mouth), Clopidogrel (By mouth), Coronary Angioplasty (DC), CHF Stoplight, Opioid Safety, Patient Portal & Khadar Instructions Discharge Attestations Time Spent in Discharge Care*: less than 30 min Quality Metrics Clinical Quality Measures [ No reported AMI, CVA or VTE this stay] Coding Level of Care Code Acute Code for g Fwd Diagnoses Acute kidney injury N17.9
[2025-04-25 13:04] VITALS: BP 104/73; PULSE 82; RESP 18; TEMP 36.3; O2SAT 98
== END 2025-04-25 13:05 | disposition home or self-care (01) | DRG 321 ==
LOC: ER 16:20 → ICU 16:36 → MEDSURG 04-23 22:54
PROVIDERS: Internal Medicine; Internal Medicine Nephrology; Nurse Practitioner Family; Admitting Provider Family Medicine; Emergency Provider Emergency Medicine; PCP Family Medicine; Visit Provider Internal Medicine
PROC: 027136Z Dilation of Coronary Artery, Two Arteries with Three Drug-eluting Intraluminal Devices, Percutaneous Approach (ICD-10-PCS; principal; 2025-04-22 07:00)
PROC: 027136Z Dilation of Coronary Artery, Two Arteries with Three Drug-eluting Intraluminal Devices, Percutaneous Approach (ICD-10-PCS; 2025-04-22 07:00)
DX: I21.4 Non-ST elevation (NSTEMI) myocardial infarction (principal); I50.23 Acute on chronic systolic (congestive) heart failure; R57.0 Cardiogenic shock; J96.01 Acute respiratory failure with hypoxia; N17.9 Acute kidney failure, unspecified; I48.91 Unspecified atrial fibrillation; E11.9 Type 2 diabetes mellitus without complications; I11.0 Hypertensive heart disease with heart failure; Z66 Do not resuscitate; I25.5 Ischemic cardiomyopathy; I25.10 Atherosclerotic heart disease of native coronary artery without angina pectoris; N28.9 Disorder of kidney and ureter, unspecified; Z79.01 Long term (current) use of anticoagulants; Z89.611 Acquired absence of right leg above knee; Z79.84 Long term (current) use of oral hypoglycemic drugs; Z79.85 Long-term (current) use of injectable non-insulin antidiabetic drugs
CPT/HCPCS: 36415; 36416; 36573; 36592; 36600; 51702; 71045; 74176; 76700; 76770; 80048; 80051; 80053; 80061; 80306; 80307; 81001; 82009; 82330; 82805; 82962; 82977; 83036; 83605; 83690; 83735; 83880; 84100; 84145; 84443; 84484; 85025; 85347; 85610; 86140; 87040; 92978; 93005; 93308; 93454; 93571; 93975; 94664; 96365; 96366; 96372; 96375; 96376; 99152; 99153; 99291; A4222; C1725; C1751; C1753; C1769; C1874; C1887; C1894; C9600; C9601; J0282; J0283; J0461; J0744; J1200; J1644; J1650; J1815; J1938; J2250; J2270; J2405; J2470; J2765; J3010; J3490; J7030; J9999; P9046; P9047; Q0163; Q3014; Q9967